=== PATIENT | female | born 1965 | race Caucasian/White ===

== ENCOUNTER → 2017-11-23 15:05 | Outpatient (REF) | payer OTHER, SELFPAY ==
[2017-11-23 19:22] LABS: Amphetamine/Metha Screen,Urine Negative ng/mL (<1000); Barbiturates Screen,Urine Negative ng/mL (<200); Benzodiazepines Screen,Urine Negative ng/mL (200); Cannabinoid Screen,Urine Negative ng/mL (<50); Cocaine Screen,Urine Negative ng/g (<300); Methadone Screen,Urine Negative ng/mL (<300); Opiate Screen,Urine Negative ng/mL (<300); Phencyclidine Screen,Urine Negative ng/mL (<25)
== END ==
LOC: LAB 15:05
PROVIDERS: Visit Provider Nurse Practitioner Family
DX: Z79.899 Other long term (current) drug therapy (principal)
CPT/HCPCS: 80305

== ENCOUNTER → 2017-11-26 16:16 | Outpatient (CLI) | payer OTHER, SELFPAY ==
--- NOTE | 2017-11-26 | MM_ITS ---
MM Dig screening mamm BI w/CAD CAD Screening ORDERING PHYSICIAN : Davon Villar MD PATIENT AGE: 52 years GENDER: Female Comparisons November 2016, October 2015, October 2014. 2013 INDICATION: . No hormones. No new complaints. Family history. Sister age 53 with breast cancer TECHNIQUE: Standard CC and MLO images were obtained. R2 CAD reviewed. FINDINGS: Mild/moderate density breast. No dominant mass nor suspicious calcifications. Stable minor asymmetry. CAD computer review highlights no new areas of concern RIGHT BREAST: stable with no new findings. LEFT BREAST:Asymmetric region density deep medial left breast is been seen on previous studies dating back to 2013. No significant change. ====IMPRESSION: .. . Stable mammogram with no significant new findings. Follow-up in one year recommended BI-RADS Category: 2 Benign Finding(s) RECOMMENDED FOLLOW-UP: 1YR - 1 YEAR FOLLOW-UP (A letter has been sent to the patient regarding results of the study.)
== END ==
PROVIDERS: PCP Emergency Medicine; Visit Provider Emergency Medicine
DX: Z12.31 Encounter for screening mammogram for malignant neoplasm of breast (principal)
CPT/HCPCS: 77067

== ENCOUNTER → 2018-03-15 10:10 | Outpatient (POV) | payer OTHER, SELFPAY | PROVIDERS: PCP Emergency Medicine; Visit Provider Specialist | DX: R20.0 Anesthesia of skin (principal); R20.2 Paresthesia of skin | CPT/HCPCS: 95886; 95909 ==

== ENCOUNTER → 2018-04-12 16:16 | Outpatient (REF) | payer OTHER, SELFPAY ==
[2018-04-12 18:37] LABS: Basophils # 0.1 K/mm3 (0-0.2); Basophils % 1.3 % (0.1-2.0); Eosinophils # 0.3 K/mm3 (0.0-0.4); Eosinophils % 3.5 % (0.1-12.0); Hematocrit 38.9 % (37.0-47.0); Lymphocytes # 2.2 K/mm3 (0.7-4.5); Lymphocytes % 30.6 K/mm3 (10-50); Mean Corpuscular HGB Conc 33.3 g/dL (31.8-35.4); Mean Corpuscular Hemoglobin 30.1 pg (27.0-31.2); Mean Corpuscular Volume 90.4 fl (81-99); Mean Platelet Volume 9.4 fl (7.4-10.4); Monocytes # 0.4 K/mm3 (0.1-1.0); Monocytes % 5.8 % (1.7-9.3); Neutrophils # 4.2 K/mm3 (1.8-7.8); Neutrophils % 58.8 % (37.0-80.0); Platelet Count 319 K/mm3 (142-424); Red Blood Count 4.31 M/mm3 (4.20-5.40); White Blood Count 7.2 K/mm3 (4.8-10.8)
[2018-04-12 20:10] LABS: Alanine Aminotransferase 25 U/L (12-78); Albumin Level 4.2 gm/dL (3.4-5.0); Albumin/Globulin Ratio 1.3 (1.1-1.8); Alkaline Phosphatase 99 U/L (46-116); Anion Gap 12.9 mEq/L (5-15); Aspartate Amino Transferase 16 U/L (15-37); Bilirubin,Total 0.4 mg/dL (0.2-1.0); Blood Urea Nitrogen 23 mg/dL (7-18); Calcium 9.1 mg/dL (8.5-10.1); Carbon Dioxide 30 mmol/L (21.0-32.0); Chloride 105 mmol/L (98-107); Chol/HDL Ratio 6.2 (1-3.5); Cholesterol 210 mg/dL (140-200); Creatinine,Serum 1.29 mg/dL (0.55-1.02); Estimated Glomerular Filt Rate 43 ml/min (>60); Free T4 (Free Thyroxine) 1.02 ng/dl (0.76-1.46); GFR (African American) 52 ML/MIN (>60); Globulin 3.2 gm/dl (1.3-3.2); Glucose 67 mg/dL (74-106); HDL Cholesterol 34 mg/dL (29-89); LDL Cholesterol 113 mg/dL (0-130); Potassium 3.9 mmoL/L (3.5-5.1); Sodium 144 mmol/L (136-145); Thyroid Stimulating Hormone 1.26 uIU/ml (0.358-3.740); Total Protein,Serum 7.4 gm/dL (6.4-8.2); Triglycerides 314 mg/dL (30-200); VLDL Cholesterol 63 mg/dL (0-40)
[2018-04-14 17:12] LABS: Vitamin D 25 Hydroxy 18.3 ng/mL (30.0-100.0)
== END ==
LOC: LAB 16:16
PROVIDERS: Visit Provider Nurse Practitioner Family
DX: R53.83 Other fatigue (principal)
CPT/HCPCS: 80053; 80061; 82652; 83036; 84439; 84443; 85025

== ENCOUNTER → 2018-05-13 14:56 | Outpatient (REF) | payer OTHER, SELFPAY ==
[2018-05-13 16:15] LABS: Alanine Aminotransferase 24 U/L (12-78); Albumin Level 4.3 gm/dL (3.4-5.0); Albumin/Globulin Ratio 1.2 (1.1-1.8); Alkaline Phosphatase 96 U/L (46-116); Anion Gap 13.7 mEq/L (5-15); Aspartate Amino Transferase 18 U/L (15-37); Bilirubin,Total 0.6 mg/dL (0.2-1.0); Blood Urea Nitrogen 25 mg/dL (7-18); Calcium 9.2 mg/dL (8.5-10.1); Carbon Dioxide 29 mmol/L (21.0-32.0); Chloride 103 mmol/L (98-107); Creatinine,Serum 1.46 mg/dL (0.55-1.02); Estimated Glomerular Filt Rate 37 ml/min (>60); GFR (African American) 45 ML/MIN (>60); Globulin 3.5 gm/dl (1.3-3.2); Glucose 91 mg/dL (74-106); Potassium 3.7 mmoL/L (3.5-5.1); Sodium 142 mmol/L (136-145); Total Protein,Serum 7.8 gm/dL (6.4-8.2)
== END ==
LOC: LAB 14:56
PROVIDERS: Visit Provider Nurse Practitioner Family
DX: R79.89 Other specified abnormal findings of blood chemistry (principal)
CPT/HCPCS: 80053

== ENCOUNTER → 2018-05-21 11:56 | Outpatient (REF) | payer OTHER, SELFPAY ==
[2018-05-21 17:31] LABS: Basophils # 0.1 K/mm3 (0-0.2); Basophils % 1.7 % (0.1-2.0); Eosinophils # 0.2 K/mm3 (0.0-0.4); Eosinophils % 2.5 % (0.1-12.0); Hematocrit 40.1 % (37.0-47.0); Hemoglobin 13.3 g/dL (12.2-16.2); Lymphocytes # 1.5 K/mm3 (0.7-4.5); Lymphocytes % 22.4 K/mm3 (10-50); Mean Corpuscular HGB Conc 33.2 g/dL (31.8-35.4); Mean Corpuscular Hemoglobin 29.9 pg (27.0-31.2); Mean Corpuscular Volume 89.9 fl (81-99); Monocytes # 0.3 K/mm3 (0.1-1.0); Monocytes % 4.8 % (1.7-9.3); Neutrophils # 4.7 K/mm3 (1.8-7.8); Neutrophils % 68.7 % (37.0-80.0); Platelet Count 325 K/mm3 (142-424); Red Blood Count 4.46 M/mm3 (4.20-5.40); Red Cell Distribution Width 13.4 % (11.5-17.5); White Blood Count 6.8 K/mm3 (4.8-10.8)
[2018-05-21 18:18] LABS: Erythrocyte Sedimentation Rate 33 mm/hr (0-30)
[2018-05-21 18:43] LABS: C-Reactive Protein < 0.2 mg/L (0.0-0.9)
== END ==
LOC: LAB 11:56
PROVIDERS: Visit Provider Emergency Medicine
DX: M25.50 Pain in unspecified joint (principal)
CPT/HCPCS: 85025; 85651; 86140

== ENCOUNTER → 2018-06-15 10:29 | Outpatient (CLI) | payer OTHER, SELFPAY ==
--- NOTE | 2018-06-15 10:30 | US_ITS ---
US kidney retroperitoneal comp HISTORY: ITS.REASON: abnormal labs ORDERING PHYSICIAN: Davon Villar MD PATIENT AGE: 53 years Comparison: None FINDINGS: RIGHT KIDNEY: No hydronephrosis 9 x 4 x 6 cm. There is a linear area of increased echogenicity in the renal cortex. May be related to cortical calcification.. Mild cortical scarring LEFT KIDNEY:10 x 4 x 6 cm. There is some mild renal cortical scarring on the left. No hydronephrosis OTHER FINDINGS: No other pertinent findings IMPRESSION: 1. No hydronephrosis. 2. Mild bilateral renal cortical scarring
== END ==
PROVIDERS: PCP Emergency Medicine; Visit Provider Emergency Medicine
DX: R89.9 Unspecified abnormal finding in specimens from other organs, systems and tissues (principal)
CPT/HCPCS: 76770

== ENCOUNTER → 2018-08-16 15:16 | Outpatient (POV) | payer OTHER, SELFPAY | PROVIDERS: Visit Provider Internal Medicine Nephrology | DX: Z00.00 Encounter for general adult medical examination without abnormal findings (principal) ==

== ENCOUNTER → 2020-09-04 17:03 | Outpatient (CLI) | payer MEDICAID, SELFPAY | PROVIDERS: PCP Emergency Medicine; Visit Provider Emergency Medicine | DX: Z03.818 Encounter for observation for suspected exposure to other biological agents ruled out (principal) | CPT/HCPCS: U0003; U0004 ==

== ENCOUNTER → 2020-09-18 14:47 | Outpatient (CLI) | payer MEDICAID, SELFPAY ==
--- NOTE | 2020-09-18 14:47 | MR_ITS ---
PROCEDURE: MR LUMBAR SPINE WO CON CLINICAL INDICATION: back pain RT SIDED SCIATICA X2-3MONTHS WORSENING IN 3 WKS. PRIOR X-RAY 06-14-15 COMPARISON: MR BRW/O MRI-BRAIN W/O from 05/11/2017 TECHNIQUE: Standard multiplanar multiecho sequences are performed without contrast. 3-D MIP and myelographic images are also rendered and reviewed FINDINGS: There is normal alignment. The spinal cord ends at the L1-L2 level. T11-T12: Minimal bulging disc. There is type 1 endplate changes anteriorly. A small T2 hyperintensity is present involving the T12 vertebral body with some stippled areas of decreased signal centrally at which may be due to a hemangioma. This measures approximately 7 mm. T12-L1: Unremarkable. L1-L2: Unremarkable. L2-L3: Mild facet and ligamentum hypertrophy. L3-L4: Mild facet ligamentum hypertrophy. Mild right lateral recess narrowing. L4-5: Mild facet ligamentum hypertrophy. L5-S1: Degenerative disc disease with mild bulging disc. There is mild facet and ligamentum hypertrophic change. IMPRESSION: Mild degenerative changes as described above. Please see above for detailed description at each level. Dictated by: Moses Lazar MD 09/20/2020 13:05 Moses Lazar MD in [place] 09/20/2020 13:05
== END ==
PROVIDERS: PCP Emergency Medicine; Visit Provider Emergency Medicine
DX: M54.9 Dorsalgia, unspecified (principal); M54.5 Low back pain
CPT/HCPCS: 72148; 76376

== ENCOUNTER → 2020-11-20 17:09 | Outpatient (CLI) | payer MEDICAID, SELFPAY ==
[2020-11-20 18:12] LABS: Basophils # 0.1 K/mm3 (0-0.2); Eosinophils # 0.3 K/mm3 (0.0-0.4); Eosinophils % 2.8 % (0.1-12.0); Hematocrit 41.8 % (37.0-47.0); Hemoglobin 13.4 g/dL (12.2-16.2); Lymphocytes # 2.2 K/mm3 (0.7-4.5); Lymphocytes % 23.9 % (10-50); Mean Corpuscular Volume 90.6 fl (81-99); Mean Platelet Volume 9.6 fl (7.4-10.4); Monocytes # 0.5 K/mm3 (0.1-1.0); Monocytes % 5.8 % (1.7-9.3); Neutrophils # 6.1 K/mm3 (1.8-7.8); Neutrophils % 66.5 % (37.0-80.0); Platelet Count 293 K/mm3 (142-424); Red Blood Count 4.61 M/mm3 (4.20-5.40); Red Cell Distribution Width 14.2 % (11.5-17.5); White Blood Count 9.2 K/mm3 (4.8-10.8)
[2020-11-20 18:16] LABS: Alanine Aminotransferase 19 U/L (12-78); Albumin Level 4.5 g/dl (3.5-5.0); Albumin/Globulin Ratio 1.5 (1.1-1.8); Alkaline Phosphatase 94 U/L (38-126); Anion Gap 15.1 mEq/L (5-15); Aspartate Amino Transferase 30 U/L (14-36); Bilirubin,Total 0.5 mg/dl (0.2-1.3); Blood Urea Nitrogen 18 mg/dl (7-17); Calcium 9.4 mg/dl (8.4-10.2); Carbon Dioxide 22 mmol/L (22.0-30.0); Chloride 108 mmol/L (98-107); Estimated Glomerular Filt Rate 52 ml/min (>60); GFR (African American) 62 ML/MIN (>60); Globulin 3.1 g/dL (1.3-3.2); Glucose 97 mg/dl (74-100); Potassium 4.1 mmoL/L (3.5-5.1); Sodium 141 mmol/L (136-145); Total Protein,Serum 7.6 g/dl (6.3-8.2)
[2020-11-20 18:30] LABS: Free T4 (Free Thyroxine) 0.94 ng/dl (0.78-2.19)
[2020-11-20 18:43] LABS: Thyroid Stimulating Hormone 1.77 uIU/mL (0.465-4.68)
[2020-11-20 19:26] LABS: Erythrocyte Sedimentation Rate 88 mm/hr (0-30)
== END ==
PROVIDERS: Visit Provider Emergency Medicine
DX: M51.16 Intervertebral disc disorders with radiculopathy, lumbar region (principal); I10 Essential (primary) hypertension; R51.9 Headache, unspecified; E66.9 Obesity, unspecified; Z68.31 Body mass index [BMI] 31.0-31.9, adult; Z79.899 Other long term (current) drug therapy
CPT/HCPCS: 80053; 84439; 84443; 85025; 85651

== ENCOUNTER → 2021-01-03 09:57 | Outpatient (POV) | payer MEDICAID, SELFPAY ==
[2021-01-03 10:23] VITALS: BP 103/65; PULSE 67; RESP 18; TEMP 36.8; O2SAT 98; BMI 31.6
--- NOTE | 2021-01-03 12:25 | HMH.PMCON ---
Assessment and Plan (1) Myofascial pain syndrome Status: Acute Category: Medical Code(s): M79.18 - Myalgia, other site (2) Degenerative joint disease (DJD) of lumbar spine Status: Acute Category: Medical Code(s): M47.816 - Spondylosis without myelopathy or radiculopathy, lumbar region - Assessment and plan all Dx Assessment and Plan for all problems:: We will plan on bilateral trapezius minus full trigger point injections. Given the fact that she has multiple full trigger points in this area I do believe it will benefit her. I will follow-up with her after her injection. She has been instructed to call the office if she has any issues prior to her next appointment Dr. Peters has reviewed this note and agrees with this plan of care. This note was dictated using voice recognition software and may contain errors or omissions HPI - Data of Consult Consult date: 01/03/21 Requesting Physician: Violeta Baca APRN Primary Care Provider: Davon Villar MD - Consult Narrative Reason for consult: Neck pain History of present illness: Ms. Abdi is a 55 year old female in today for consultation in regards to her pain. Patient states she has low back pain but her main complaint is her neck pain today. She is pain around the base of her neck spreading into her scapular area. Patient states that all activity increases pain while rest and heat decrease pain. Patient's tried and failed massage therapy, chiropractic therapy, physical therapy, medications, anti-inflammatories. Patient does have palpable trigger points in this area. We discussed trigger point injection she is agreeable. CC: Violeta Baca APRN [facility] History I have reviewed the patient's past medical history: Yes Medical History: Reports:: Anxiety, Arrhythmia, Depression, Gastroesophageal Reflux Disease(GERD), Hyperlipidemia, Hypertension, Migraine, Palpitations Denies:: Cancer, Diabetes Mellitus Type 1, Diabetes Mellitus Type 2, MRSA *Have you ever received a pneumonia vaccine?: Yes *Have you received a flu vaccine this season?: Yes Other Medical History: Reports: Arthritis, Fibromyalgia Laterality Cases: Bilateral: Carpal Tunnel Release, Other Other Surgeries: Yes: Cholecystectomy, Colonoscopy, Hysterectomy-Total, Tubal Ligation, Other Amputation: No Fractures: No - *Social History Smoking Status: Never smoker Alcohol Intake: never Substance Use Type: denies use *Occupational Status:: unemployed Housing: house Household Members: spouse *Travel in the last 8 weeks: None - Psychiatric History Pschychiatric History:: Reports:: Anxiety, Depression Family Hx:: Stroke, Hypertension, Diabetes, Hyperlipidemia Review of Systems - Review of Systems Physical Exam General: Alert and oriented x3, no acute distress, pleasant and cooperative, [on room air] Lungs: Resps E/U, Symmetrical chest expansion, Eyes: PERRL Musculoskeletal: Flexion and extension of lumbar cervical spine somewhat guarded secondary to pain, deep tendon reflexes normal, strength in upper and lower extremities [5/5], antalgic gait noted Neurological: 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 clear, 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, no gross sensory deficits Meds Home Medications Medication Instructions Recorded Confirmed Type cyclobenzaprine 10 mg tablet 10 mg PO HS tab 10/07/17 12/17/20 History cyanocobalamin (vitamin B-12) 1,000 mcg PO DAILY #90 cap 09/04/20 12/17/20 Rx 1,000 mcg capsule galcanezumab-gnlm 120 mg/mL 120 mg SQ QMONTH 09/04/20 12/17/20 History subcutaneous pen injector metoprolol succinate 100 mg 100 mg PO QDAY #90 tab 09/04/20 12/17/20 Rx tablet,extended release 24 hr ondansetron 8 mg disintegrating 8 mg PO Q12H 09/04/20 12/17/20 History tablet simvastatin 40 mg tablet 40 mg PO DAILY #90 tab 09/04/20 12/17/20 Rx topiramate 100 mg tablet See Rx Instructions .ROUTE 11/14/20 12/17/20 Rx .COMPLEX #60 tab ubrogepant 100 mg tablet 100 mg PO DAILY PRN #10 tab 11/21/20 12/17/20 Rx b
== END ==
PROVIDERS: PCP Emergency Medicine; Visit Provider Clinical Nurse Specialist Family Health
DX: M79.18 Myalgia, other site (principal); M47.816 Spondylosis without myelopathy or radiculopathy, lumbar region
CPT/HCPCS: 99202; G0463

== ENCOUNTER → 2021-01-09 13:33 | Outpatient (POV) | payer MEDICAID, SELFPAY | DX: Z00.00 Encounter for general adult medical examination without abnormal findings (principal) ==

== ENCOUNTER 2021-01-18 09:01 | Day surgery (SDC) | payer MEDICAID, SELFPAY ==
[2021-01-18 09:19] VITALS: BP 146/88; PULSE 67; RESP 18; TEMP 36.5; O2SAT 98; BMI 31.3
--- NOTE | 2021-01-18 09:37 | HMH.PMPROC ---
- Procedure Date: 01/18/21 Time: 09:37 Anesthesiologist:: Jose Peters MD Complications:: None Pre-procedure Diagnosis:: Neck pain myofascial in origin Post-procedure Diagnosis:: Same Indications for Procedure:: This patient is a pleasant 55-year-old white female who we are treating for neck pain which seems to be myofascial in origin over the upper trapezius muscles bilaterally. I believe she would benefit from bilateral trigger point injections to the upper trapezius muscles. We will do this today. Procedure Details:: Trigger point injections x8 Informed consent was obtained risk and benefits of the procedure were explained to the patient. Patient was taken the procedure room. The neck and shoulders were prepped using ChloraPrep. Trigger points were identified and marked over bilateral upper trapezius muscles. Total of 8 trigger points were injected bilaterally with bupivacaine 0.25% 3 mL and Depo-Medrol 10 mg. A total of 80 mg Depo-Medrol was used for total of 8 trigger points bilaterally. Patient tolerated the procedure well with no complications. Plan and Disposition:: Follow-up with her in 2 weeks. Will reevaluate symptoms at that time.
[2021-01-18 09:43] VITALS: BP 125/88; PULSE 78; RESP 18
[2021-01-18 09:44] VITALS: BP 128/88; PULSE 85; RESP 18; O2SAT 98
[2021-01-18 09:55] VITALS: BP 147/80; PULSE 56; RESP 18; O2SAT 98
== END 2021-01-18 09:55 | disposition home or self-care (01) ==
LOC: SC.PAINP 09:01
PROVIDERS: PCP Emergency Medicine; Visit Provider Anesthesiology
DX: M79.18 Myalgia, other site (principal); I10 Essential (primary) hypertension; E78.5 Hyperlipidemia, unspecified; K21.9 Gastro-esophageal reflux disease without esophagitis; Z88.0 Allergy status to penicillin
CPT/HCPCS: 20552; J1030

== ENCOUNTER → 2021-02-05 13:08 | Outpatient (CLI) | payer MEDICAID, SELFPAY | PROVIDERS: PCP Emergency Medicine; Visit Provider Specialist | DX: G47.33 Obstructive sleep apnea (adult) (pediatric) (principal) | CPT/HCPCS: 95806 ==

== ENCOUNTER → 2021-02-07 09:36 | Outpatient (POV) | payer MEDICAID, SELFPAY ==
[2021-02-07 09:43] VITALS: BP 130/77; PULSE 65; RESP 18; O2SAT 100; BMI 30.4
--- NOTE | 2021-02-07 10:16 | HMH.PAINSOAP ---
[facility] Pain Management SOAP Note Subjective:: Patient is a 56-year-old white female who presents today for follow-up. She is being treated for myofascial pain in her upper trapezius and cervical paraspinous muscles. Patient reports that she got 1 week of relief. She is now having pain that has returned in the left upper neck area. Patient has tried oral medications along with home stretching with little to no relief. She does rate her pain a 4 out of 10 today. She would like to proceed with repeat trigger point injections to the area. Patient and I did discuss trying a muscle relaxer to see if this gives her relief. She has tried Flexeril which causes her severe drowsiness and she is unable to take the medication. We discussed Skelaxin. We will try Skelaxin to see if this gives her relief. Review of Systems General: No recent weight changes, no fever, no sleep disturbances Respiratory: No cough, no shortness of air, no recurring pulmonary infections Cardiovascular/peripheral vascular: No chest pain, no palpitations, no edema, no shortness of breath Gastrointestinal: No new onset incontinence, normal bowel movements reported Genitourinary: No new onset incontinence Musculoskeletal: Neck pain into upper neck and bilateral shoulders Psychiatric: Normal mood/affect Neurological: [Denies weakness in extremities], [denies balance issues] Objective:: Physical exam General: Alert and oriented x3, no acute distress, pleasant and cooperative, [on room air] Lungs: Respirations even and unlabored, symmetrical chest expansion Eyes: PERRL Musculoskeletal: Flexion and extension of cervical spine somewhat guarded secondary to pain, deep tendon reflexes normal, strength in upper and lower extremities [5/5], normal gait noted Neurological: 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 She has had the injections and did get 90% relief for approximately 1 week. We will also order the patient Skelaxin 800 mg 1 tablet p.o. twice daily. We will see her back in the clinic after her injections to reevaluate her symptoms. Risk and benefits of the medication have been explained to the patient. Risk and benefits of the injections were also explained to the patient and she would like to proceed. Dr. Peters has reviewed this note and agrees with this plan of care. This note was dictated using voice recognition software and make contain errors or omissions. [facility] History I have reviewed the patient's past medical history: Yes Medical History: Reports:: Anxiety, Arrhythmia, Depression, Gastroesophageal Reflux Disease(GERD), Hyperlipidemia, Hypertension, Migraine, Palpitations Denies:: Cancer, Diabetes Mellitus Type 1, Diabetes Mellitus Type 2, MRSA, Seizures *Have you ever received a pneumonia vaccine?: No *Have you received a flu vaccine this season?: No Other Medical History: Reports: Arthritis, Fibromyalgia. Denies: Blood Transfusion Reaction Laterality Cases: Bilateral: Carpal Tunnel Release, Other Other Surgeries: Yes: Cholecystectomy, Colonoscopy, Hysterectomy-Total, Tubal Ligation, Other Amputation: No Fractures: No - *Social History Smoking Status: Never smoker Alcohol Intake: never Substance Use Type: denies use *Occupational Status:: unemployed Housing: house Household Members: spouse *Travel in the last 8 weeks: None - Psychiatric History Pschychiatric History:: Reports:: Anxiety, Depression Family Hx:: Stroke, Hypertension, Diabetes, Hyperlipidemia
== END ==
PROVIDERS: PCP Emergency Medicine; Visit Provider Clinical Nurse Specialist Family Health
DX: M45.2 Ankylosing spondylitis of cervical region (principal); M79.18 Myalgia, other site
CPT/HCPCS: 99212; G0463

== ENCOUNTER 2021-02-15 12:55 | Day surgery (SDC) | payer MEDICAID, SELFPAY ==
[2021-02-15 13:12] VITALS: BP 122/84; PULSE 100; RESP 18; TEMP 36.4; O2SAT 98; BMI 30.4
[2021-02-15 13:38] VITALS: BP 123/74; PULSE 89; RESP 18; O2SAT 100
[2021-02-15 13:39] VITALS: BP 123/74; PULSE 96; RESP 18; O2SAT 99
--- NOTE | 2021-02-15 13:42 | HMH.PMPROC ---
- Procedure Date: 02/15/21 Time: 13:42 Anesthesiologist:: Jose Peters MD Complications:: None Pre-procedure Diagnosis:: Neck pain myofascial in origin involving the cervical paraspinous muscles and upper trapezius muscles Post-procedure Diagnosis:: Same Indications for Procedure:: Patient is a pleasant 56-year-old white female who we are treating for neck pain which is myofascial in origin involving the cervical paraspinous muscles and upper trapezius muscles. She has had trigger point injections to these areas with good relief of her symptoms. Pain is now returned. This was done several months ago. We will do repeat bilateral cervical paraspinous muscle and upper trapezius muscle trigger point injections again today. Procedure Details:: Trigger point injections x8 to bilateral cervical paraspinous muscles and upper trapezius muscles Informed consent was obtained and the risk and benefits of the procedure were explained to the patient. Patient was taken to the procedure room. Neck and shoulders were prepped using ChloraPrep. Trigger points were palpated and marked. Each of these trigger points were injected with bupivacaine 0.25% 3 mL and Depo-Medrol 10 mg. A total of 8 trigger points encompassing bilateral cervical paraspinous muscles and upper trapezius muscles were injected using 80 mg Depo-Medrol. Patient tolerated procedure well with no complications. Plan and Disposition:: We will follow-up with this patient in 2 weeks. Will reevaluate symptoms at that time. She may need repeat trigger point injections at that time.
[2021-02-15 13:55] VITALS: BP 129/76; PULSE 86; RESP 18; O2SAT 98
== END 2021-02-15 13:55 | disposition home or self-care (01) ==
LOC: SC.PAINP 12:55
PROVIDERS: PCP Emergency Medicine; Visit Provider Anesthesiology
DX: M79.18 Myalgia, other site (principal); G43.909 Migraine, unspecified, not intractable, without status migrainosus; E78.5 Hyperlipidemia, unspecified; R00.2 Palpitations; I10 Essential (primary) hypertension; K21.9 Gastro-esophageal reflux disease without esophagitis; M19.90 Unspecified osteoarthritis, unspecified site; F41.9 Anxiety disorder, unspecified; F32.9 Major depressive disorder, single episode, unspecified; I49.9 Cardiac arrhythmia, unspecified; Z90.49 Acquired absence of other specified parts of digestive tract; Z90.710 Acquired absence of both cervix and uterus
CPT/HCPCS: 20553; J1030

== ENCOUNTER 2021-03-11 12:00 | Observation (INO) | payer MEDICAID, SELFPAY ==
[2021-03-11] VITALS (11 sets, daily range): BP systolic 115–137; BP diastolic 70–85; PULSE 50–65; RESP 16–18; TEMP 36.5–36.7; O2SAT 95–98; BMI 31.6
--- NOTE | 2021-03-11 | IR_ITS ---
APPROVED REPORT Patient Location: Inpatient Crew Truck Driver: KYM Medina RT (R) PROCEDURES Left heart catheterization Left ventriculogram Selective coronary angiogram INDICATION Unstable angina Informed consent was obtained prior to the procedure. COMPLICATIONS None Estimated Blood Loss: Less than 10 mls TECHNIQUE One percent lidocaine used to anesthetize the right anterior aspect of the wrist. The right radial artery was accessed via the Seldinger technique. A 6 Turkmen sheath was placed in the right radial artery. 2.5 mg of verapamil, 800 mcg of nitroglycerin, 1mg Lidocaine and 5000 U Heparin were given through the arterial sheath. The Poppa catheter was also used to perform left heart catheterization, left ventriculogram and selective coronary angiogram. At the end of the procedure the sheath was removed good hemostasis was achieved using Traclet band, patient was transferred to the postop holding area in stable condition. ANGIOGRAPHIC RESULTS The left main artery Normal The left anterior descending artery Normal The circumflex artery Normal The right coronary artery Dominant normal The LÓPEZ ventriculogram reveals Normal 65% The left ventricular end-diastolic pressure 10 mmHg IMPRESSION Normal coronary arteries Normal ejection fraction Normal left ventricular NaSal pressure PLAN 1. Evaluation of noncardiac symptoms 2. Consider CTA of the pulmonary arteries Electronically signed by : Edinson Camara, 03/11/2021 15:07:19
--- NOTE | 2021-03-11 12:24 | CA_ITS ---
APPROVED REPORT EXAM: Comprehensive 2D, Doppler, and color-flow Echocardiogram [place] Professor: Miguelina Diaz RVT Ht: 5 ft 7 in Wt: 202lbs BSA: 2.03 BP: 115/78 mmHg Indications: ANGINA,HLD,HTN,NORMAL CATH 2D Dimensions LVOT 1.92 cm (M/F) 1.5-2.5 LA Volume 28.00 mL LA Volume Index 13.79 mL/m2 (M/F) 16-34 M-Mode Dimensions RVDd 2.54 cm (0.9-2.6) LA Diam 2.87 cm (1.9-4.0) LVDd 4.51 cm (3.5-5.7) Ao Diam 3.25 cm (2.0-3.7) LVDs 2.61 cm (3.5-5.7) IVSd 0.86 cm (0.6-1.1) PWd 0.82 cm (0.6-1.1) EF (Teich) 73.30% FS 42.10% EDV (Teich) 92.90 mL TAPSE 2.73 (<1.7) ESV (Teich) 24.80 mL LV Diastology E Decel Time 223.00 (160-240 msec) E/A Ratio 0.7 MED E' 8.40 (< 7 cm/sec) E'/MED E' Ratio 7.35 (>14) LAT E' 10.10 (<10 cm/sec) E/LAT E' Ratio 6.11 (>14) Aortic Valve AO Peak GR. 6.70 mmHg Mitral Valve MV E Max Popeye. 62.00 (40-130 cm/s) MV A Velocity 87.00 (40-130 cm/s) E/A Ratio 0.71 MV Decel. Time 223.00 (160-240 ms) MV PHT 65.00 ms Pulmonary Valve PV Peak Velocity 78.00 (50-150 cm/s) Tricuspid Valve TR P. Velocity 215.00 cm/s RAP Estimate 10.00 mmHg RVSP 28.50 mmHg Left Ventricle Left atrium is mildly enlarged, left ventricle is normal size mild concentric left ventricular hypertrophy, visually estimated ejection fraction 55% with no regional wall motion abnormality, grade 1 diastolic dysfunction seen without tissue Doppler evidence of raise left atrial pressure. Right Ventricle Right atrium and right ventricle are normal size and contractility. Aortic Valve Aortic valve is thickened and calcified without Doppler evidence of aortic stenosis or aortic insufficiency. Mitral Valve Mitral valve grossly normal, there is mild mitral regurgitation. Tricuspid Valve Tricuspid valve is grossly normal, there is mild tricuspid regurgitation, tricuspid regurgitation jet velocity is inadequate for calculation of the right ventricular systolic pressure. Pulmonic Valve Pulmonic valve is poorly visualized. Great Vessels Aortic root is normal size. Pericardium No significant pericardial effusion noted. Conclusion 1. Mildly enlarged left atrium, normal left ventricular size, mild concentric left ventricular hypertrophy, visually estimated ejection fraction 55% with no regional wall motion abnormality, diastolic parameters are consistent with grade 1 diastolic dysfunction without tissue Doppler evidence of raise left atrial pressure. 2. Mild mitral and tricuspid regurgitation. 3. No significant pericardial effusion noted. Electronically signed by : Codey Boss, 03/11/2021 21:59:20
--- NOTE | 2021-03-11 12:36 | HMH.CNCARD ---
History of Present Illness Consult date: 03/11/21 Requesting physician: Davon Villar Consult reason: chest pain Chief complaint: chest pain History of present illness: This is a 86-[id number]-[id number]-year-old white female who was admitted to the hospital from her primary care provider's office for accelerated angina. The patient states that she has been having chest pain intermittently for the last several days to weeks. She states that this was just a mild sharp sensation and then this significantly worsened last week. She states that she has been having a crushing pressure, heavy, sharp sensation in the substernal aspect of her chest. She states that this is radiating up the left side of her neck and into her left jaw, her back and around the right side of her chest. She states that this is a severe, crushing, 10 out of 10 pain. She states that it lasts for about an hour. Nothing worsens the pain. Nothing helps to improve the pain not even taking aspirin. She states that this is associated with shortness of breath which is profound and nausea. The patient states that she has a significant family history of ischemic heart disease. She states both of her parents and all of her siblings have heart disease. She denies any tobacco use. She does have hyperlipidemia. [facility] History I have reviewed the patient's past medical history: Yes Medical History: Reports:: Anxiety, Arrhythmia, Depression, Gastroesophageal Reflux Disease(GERD), Hyperlipidemia, Hypertension, Migraine, Palpitations Denies:: Cancer, Diabetes Mellitus Type 1, Diabetes Mellitus Type 2, MRSA, Seizures *Have you ever received a pneumonia vaccine?: No *Have you received a flu vaccine this season?: No Other Medical History: Reports: Arthritis, Fibromyalgia. Denies: Blood Transfusion Reaction Laterality Cases: Left: Arthroscopy Knee, Bilateral: Carpal Tunnel Release, Other Other Surgeries: Yes: Cholecystectomy, Colonoscopy, Hysterectomy-Total, Tubal Ligation, Other Amputation: No Fractures: No - *Social History Smoking Status: Never smoker Alcohol Intake: never Substance Use Type: denies use *Occupational Status:: unemployed Housing: house Household Members: spouse *Travel in the last 8 weeks: None - Psychiatric History Pschychiatric History:: Reports:: Anxiety, Depression Family Hx:: Stroke, Hypertension, Diabetes, Hyperlipidemia Meds Home Medications Medication Instructions Recorded Confirmed Type cyclobenzaprine 10 mg tablet 10 mg PO HS tab 10/07/17 03/11/21 History ondansetron 8 mg disintegrating 8 mg PO Q12H 09/04/20 03/11/21 History tablet Cyanocobalamin (Vitamin B-12) See Rx Instructions .ROUTE .COMPLEX 01/18/21 03/11/21 History [B-12] Diclofenac Sodium [Diclofenac 100 mg PO BID 01/18/21 03/11/21 History Sodium ER] Duloxetine HCl [Cymbalta] See Rx Instructions .ROUTE .COMPLEX 01/18/21 03/11/21 History Gabapentin 800 mg PO BID 01/18/21 03/11/21 History Metoprolol Succinate [Metoprolol See Rx Instructions .ROUTE .COMPLEX 01/18/21 03/11/21 History Succinate 100mg Tablet*] Oxybutynin Chloride [Oxybutynin See Rx Instructions .ROUTE .COMPLEX 01/18/21 03/11/21 History Chloride ER] Simvastatin 40 mg PO DAILY 01/18/21 03/11/21 History buPROPion HCL [Wellbutrin SR 75mg See Rx Instructions .ROUTE .COMPLEX 01/18/21 03/11/21 History Tablet] Emgality Pen 120 mg/mL 120 mg SQ QMONTH #1 ml NS 01/28/21 03/11/21 Rx subcutaneous pen injector Ubrelvy 100 mg tablet 100 mg PO ONCE PRN #10 tab NS 01/28/21 03/11/21 Rx Metaxalone [Skelaxin 800mg Tablet] 800 mg PO BID 30 Days #60 tab 02/07/21 03/11/21 Rx topiramate 100 mg tablet See Rx Instructions .ROUTE 02/26/21 03/11/21 Rx .COMPLEX #60 tablet pantoprazole 40 mg tablet,delayed See Rx Instructions .ROUTE 03/01/21 03/11/21 Rx release .COMPLEX #90 tablet Allergies Allergy/AdvReac Type Severity Reaction Status Date / Time Penicillins Allergy Intermediate I-HIVES Verified 03/11/21 11:03 Exam Vital
--- NOTE | 2021-03-11 12:37 | ECG_ITS ---
APPROVED REPORT Exam: Resting ECG HR:58 bpm ECG Measurements Heart Rate 58 AXES AL 158 P 28 QRSd 86 QRS -8 QT 418 T 32 QTc 410 Conclusion Sinus bradycardia Moderate voltage criteria for LVH, may be normal variant Borderline ECG Electronically signed by : Stuart Carpio, 03/11/2021 17:31:36
[2021-03-11 13:03] LABS: Basophils # 0.1 K/mm3 (0-0.2); Basophils % 0.8 % (0.1-2.0); Eosinophils # 0.3 K/mm3 (0.0-0.4); Hematocrit 38.4 % (37.0-47.0); Lymphocytes # 1.9 K/mm3 (0.7-4.5); Lymphocytes % 19.2 % (10-50); Mean Corpuscular HGB Conc 33.7 g/dL (31.8-35.4); Mean Corpuscular Hemoglobin 30.1 pg (27.0-31.2); Mean Corpuscular Volume 89.1 fl (81-99); Mean Platelet Volume 9.3 fl (7.4-10.4); Monocytes # 0.8 K/mm3 (0.1-1.0); Monocytes % 7.5 % (1.7-9.3); Neutrophils # 6.9 K/mm3 (1.8-7.8); Neutrophils % 69.4 % (37.0-80.0); Platelet Count 304 K/mm3 (142-424); Red Blood Count 4.31 M/mm3 (4.20-5.40); Red Cell Distribution Width 14.1 % (11.5-17.5); White Blood Count 9.9 K/mm3 (4.8-10.8)
[2021-03-11 13:15] LABS: Chloride 106 mmol/L (98-107); Potassium 3.8 mmoL/L (3.5-5.1); Sodium 143 mmol/L (136-145)
[2021-03-11 13:17] LABS: Blood Urea Nitrogen 19 mg/dl (7-17); Creatinine Clearance Estimated 83 mL/min (50-200); Estimated Glomerular Filt Rate 51 ml/min (>60); GFR (African American) 62 ML/MIN (>60)
[2021-03-11 13:18] LABS: Alanine Aminotransferase 19 U/L (12-78); Albumin Level 4.7 g/dl (3.5-5.0); Albumin/Globulin Ratio 1.5 (1.1-1.8); Alkaline Phosphatase 111 U/L (38-126); Aspartate Amino Transferase 30 U/L (14-36); Bilirubin,Total 0.5 mg/dl (0.2-1.3); Calcium 9.3 mg/dl (8.4-10.2); Carbon Dioxide 26 mmol/L (22.0-30.0); Chol/HDL Ratio 3.6 (1-3.5); Cholesterol 170 mg/dl (140-200); Globulin 3.2 g/dL (1.3-3.2); Glucose 82 mg/dl (74-100); HDL Cholesterol 47 mg/dl (40-60); Magnesium 2.1 mg/dl (1.6-2.3); Total Protein,Serum 7.9 g/dl (6.3-8.2); Triglycerides 204 mg/dl (30-150); VLDL Cholesterol 41 mg/dL (0-40)
[2021-03-11 13:29] LABS: Direct LDL Cholesterol 81.75 mg/dL (100-129)
[2021-03-11 13:36] LABS: Anion Gap 6.2 mEq/L (5-15)
--- NOTE | 2021-03-11 13:37 | HMH.PHAINT ---
COMPLETED MEDICATION RECONCILIATION ON PATIENT USING EXTERNAL PHARMACY FILL HISTORY AND LIST FROM DR. KENDALL'S OFFICE.
--- NOTE | 2021-03-11 14:01 | HMH.PHAVTE ---
[facility] Pharmacy VTE Monitoring - Patient Demographics Admission date: 03/11/21 Report Date: 03/11/21 Time: 14:01 Allergies/Adverse Reactions: Patient Allergies Penicillins Allergy (Intermediate, Verified 03/11/21 11:03) I-HIVES Height: 1.7 m Weight: 91.626 kg Patient Problems: Current Active Problems Accelerating angina (Acute) Hyperlipidemia (Chronic) Family history of ischemic heart disease (Chronic) Hypertension (Chronic) - VTE Risk Labs: VTE Related Lab Results Hgb 13.0 g/dL (12.2-16.2) 03/11/21 12:50 Hct 38.4 % (37.0-47.0) 03/11/21 12:50 Plt Count 304 K/mm3 (142-424) 03/11/21 12:50 BUN 19 mg/dl (7-17) H 03/11/21 12:50 Creatinine 1.10 mg/dl (0.52-1.04) H 03/11/21 12:50 Estimated Creat Clear 83 mL/min (50-200) 03/11/21 12:50 VTE Score: 1 - Prophylaxis VTE Prophylaxis Ordered?: Yes Types of VTE Prophylaxis: TEDS Knee High Location of Applied Device: Bilateral Lower Extremeties
--- NOTE | 2021-03-11 16:01 | CT_ITS ---
PROCEDURE INFORMATION: Exam: CTA Chest With Contrast Exam date and time: 03/11/2021 4:01 PM Age: 56 years old Clinical indication: Shortness of breath; Patient HX: Chest pain, SOA TECHNIQUE: Imaging protocol: Computed tomographic angiography of the chest with contrast. 3D rendering (Not supervised by radiologist): MIP and/or 3D reconstructed images were created by the technologist. Radiation optimization: All CT scans at this facility use at least one of these dose optimization techniques: automated exposure control; mA and/or kV adjustment per patient size (includes targeted exams where dose is matched to clinical indication); or iterative reconstruction. Contrast material: ISOVUE 370; Contrast volume: 70 ml; Contrast route: INTRAVENOUS (IV); COMPARISON: [employer]/O MRI-C-SPINE W/O 05/11/2017 8:09 AM FINDINGS: Pulmonary arteries: The pulmonary arteries are normal in caliber. No pulmonary emboli to the proximal subsegmental level. Aorta: No thoracic aortic aneurysm. No evidence of aortic dissection. Lungs: No focal consolidation or pulmonary nodules. There are calcified granulomas in the right upper lobe. Linear opacities in the dependent lungs likely represent dependent atelectasis. Pleural spaces: Unremarkable. No pneumothorax. No pleural effusion. Heart: No cardiomegaly. No pericardial effusion. Lymph nodes: No mediastinal or hilar lymphadenopathy. Spleen: The spleen is mildly enlarged measuring 12.3 cm and demonstrates multiple calcifications, likely calcified granulomas. Bones/joints: No acute fracture. There are multilevel degenerative changes of the spine. Soft tissues: Unremarkable. IMPRESSION: No evidence of pulmonary embolism.
--- NOTE | 2021-03-11 16:29 | HMH.ITSTN ---
TALKED TO KINZA VERA RN, PATIENT GETTING ECHO AND NEW LINE STARTED AT APPROX [id number]
[2021-03-11 16:50] LABS: Troponin I < 0.01 ng/ml (0.00-0.034)
--- NOTE | 2021-03-11 17:34 | PC.NURSE ---
PT IS OFF THE FLOOR WITH RADIOLOGY AT THIS TIME.
[2021-03-11 19:06] LABS: Troponin I < 0.01 ng/ml (0.00-0.034)
--- NOTE | 2021-03-11 19:35 | HMH.HPDC ---
General - General Admission date:: 03/11/21 Discharge date: 03/11/21 *Admission Date: 03/11/21 *Chief complaint: chest pain *History of present illness: 34-vluz-sxr-year-old white female who was admitted to the hospital from her primary care provider's office for accelerated angina. The patient states that she has been having chest pain intermittently for the last several days to weeks. She states that this was just a mild sharp sensation and then this significantly worsened last week. She states that she has been having a crushing pressure, heavy, sharp sensation in the substernal aspect of her chest. She states that this is radiating up the left side of her neck and into her left jaw, her back and around the right side of her chest. She states that this is a severe, crushing, 10 out of 10 pain. She states that it lasts for about an hour. Nothing worsens the pain. Nothing helps to improve the pain not even taking aspirin. She states that this is associated with shortness of breath which is profound and nausea. The patient states that she has a significant family history of ischemic heart disease. She states both of her parents and all of her siblings have heart disease. She denies any tobacco use. She does have hyperlipidemia. per cardiology [facility] History I have reviewed the patient's past medical history: Yes Medical History: Reports:: Anxiety, Arrhythmia, Depression, Gastroesophageal Reflux Disease(GERD), Hyperlipidemia, Hypertension, Migraine, Palpitations Denies:: Cancer, Diabetes Mellitus Type 1, Diabetes Mellitus Type 2, MRSA, Seizures *Have you ever received a pneumonia vaccine?: No *Have you received a flu vaccine this season?: No Other Medical History: Reports: Arthritis, Fibromyalgia. Denies: Blood Transfusion Reaction Laterality Cases: Left: Arthroscopy Knee, Bilateral: Carpal Tunnel Release, Other Other Surgeries: Yes: Cholecystectomy, Colonoscopy, Hysterectomy-Total, Tubal Ligation, Other Amputation: No Fractures: No - *Social History Last grade of school completed: Some college Smoking Status: Never smoker Alcohol Intake: never Substance Use Type: denies use *Occupational Status:: retired Housing: house Household Members: spouse *Travel in the last 8 weeks: None - Psychiatric History Pschychiatric History:: Reports:: Anxiety, Depression Family Hx:: Stroke, Hypertension, Diabetes, Hyperlipidemia Review of Systems - Review of Systems Review of systems:: pertinent systems reviewed and negative unless documented below - Constitutional Denies body ache(s), Denies weakness - Eyes Denies sensitivity to light - ENT Denies ear pain - *Cardiovascular Reports chest pain, Reports chest pain at rest, Reports chest pain with activity, Reports shortness of breath - *Respiratory Reports shortness of breath with activity, Denies change in phlegm color - *Gastrointestinal Denies abdominal pain - *Genitourinary Denies urinary urgency - *Musculoskeletal Denies joint pain - Integumentary/Breasts Denies rash - *Neurologic Denies confusion - Psychiatric Denies mood swings - Endocrine Denies increased hunger - Hematologic/Lymphatic Denies easy bruising Exam Vital signs and Labs for Last 24 Hours: Temp Pulse Resp BP Pulse Ox 97.9 F 60 18 130/74 96 03/11/21 18:18 03/11/21 19:30 03/11/21 19:30 03/11/21 19:30 03/11/21 19:30 Laboratory Results - last 24 hr 03/11/21 12:50: WBC 9.9, RBC 4.31, Hgb 13.0, Hct 38.4, MCV 89.1, MCH 30.1, MCHC 33.7, RDW 14.1, Plt Count 304, MPV 9.3, Neut % (Auto) 69.4, Lymph % (Auto) 19.2, [place] % (Auto) 7.5, Eos % (Auto) 3.0, Baso % (Auto) 0.8, Neut # (Auto) 6.9, Lymph # (Auto) 1.9, [place] # (Auto) 0.8, Eos # (Auto) 0.3, Baso # (Auto) 0.1 03/11/21 12:50: Sodium 143, Potassium 3.8, Chloride 106, Carbon Dioxide 26, Anion Gap 6.2, BUN 19 H, Creatinine 1.10 H, Estimated Creat Clear 83, Estimated GFR 51 L, Est GFR ( Amer) 62, Glucose 82, Calcium 9.3,
--- NOTE | 2021-03-11 20:17 | PC.NURSE ---
PT WAS D/C AT 2016
== END 2021-03-11 20:11 | disposition home or self-care (01) ==
PROVIDERS: Internal Medicine; Admitting Provider Emergency Medicine; PCP Emergency Medicine; Visit Provider Emergency Medicine
DX: I25.118 Atherosclerotic heart disease of native coronary artery with other forms of angina pectoris (principal); Z82.49 Family history of ischemic heart disease and other diseases of the circulatory system; I10 Essential (primary) hypertension; G43.909 Migraine, unspecified, not intractable, without status migrainosus; K21.9 Gastro-esophageal reflux disease without esophagitis
CPT/HCPCS: 36415; 71275; 80053; 80061; 83735; 84484; 85025; 93005; 93306; 93458; 99152; C1725; C1769; G0378; J1644; Q9967

== ENCOUNTER → 2021-04-01 09:43 | Outpatient (POV) | payer MEDICAID, SELFPAY ==
[2021-04-01 09:49] VITALS: BP 161/86; PULSE 63; RESP 18; O2SAT 100; BMI 31.3
--- NOTE | 2021-04-01 10:17 | HMH.PAINSOAP ---
[facility] Pain Management SOAP Note Subjective:: Patient is a 56-year-old white female who presents today for follow-up after trigger point injections for myofascial pain. She was last seen on 02/15/2021. She says that she got excellent relief with injections, however, her pain has returned. Patient rates her pain a 6 out of 10 today. She is having pain in her neck with radiation into bilateral shoulders and into her left deltoid muscle. She says it is tender to touch. She says her left neck and shoulder are worse with pain. She is also having mid back pain between her shoulder blades. She says this is a dull ache and musculoskeletal in nature, she feels. She is now complaining of low back pain with radicular pain into her right hip as well. She says that she has had SI pain in the past, however, she is now having pain bending forward and with extension and turning at her waist. Standing is severe as well. Lying down does give her relief. She says that she has not had the low back pain for some time. She has not had any imaging of her lumbar spine. She has tried physical therapy for more than 6 weeks and continues with home stretching and has tried anti-inflammatories. We discussed ordering compounding cream for the area as well as a muscle relaxer. She is unable to tolerate Flexeril or ties Harleen Guillermo due to severe drowsiness. We will order her a different muscle relaxer to see if this helps. We also discussed compounding cream to apply topically to the area. Review of Systems General: No recent weight changes, no fever, no sleep disturbances Respiratory: No cough, no shortness of air, no recurring pulmonary infections Cardiovascular/peripheral vascular: No chest pain, no palpitations, no edema, no shortness of breath Gastrointestinal: No new onset incontinence, normal bowel movements reported Genitourinary: No new onset incontinence Musculoskeletal: Bilateral neck pain, low back pain with radiation into right hip, worse with bending forward and turning/extension at waist Psychiatric: Normal mood/affect Neurological: [Denies weakness in extremities], [denies balance issues] Objective:: Physical exam General: Alert and oriented x3, no acute distress, pleasant and cooperative, [on room air] Lungs: Respirations even and unlabored, symmetrical chest expansion Eyes: PERRL Musculoskeletal: Flexion and extension of [] cervical, thoracic, lumbar spine somewhat guarded secondary to pain, deep tendon reflexes normal, strength in upper and lower extremities [5/5], normal gait noted Neurological: Speech clear, corporate controller equal, no gross sensory deficit Assessment:: Myofascial pain cervical paraspinous muscles and upper trapezius muscles, low back pain, right hip pain Plan:: We will schedule patient for trigger point injections to her cervical paraspinous and upper trapezius muscles. She is also having pain mid back area between her shoulder blades. We will perform injections to this area as well. We will also order the patient compounding cream to apply topically to her neck and low back area. We will order the patient Robaxin 500 mg 1 tablet p.o. daily as needed for muscle spasms. We will get imaging of her lumbar spine. She seems to be having some facet pain. Her pain is worse when she is bending forward and with extension and turning at her waist. She does have facet loading today. We will follow-up with her at her next visit, discuss her MRI of her lumbar spine and evaluate if her medications are working for her. Patient has been instructed to contact the clinic with any concerns before the next appointment. Risks and benefits of the procedure have been explained to the patient. Patient would like to proceed with the procedure. Possible side effects of corticosteroids have been discussed with the patient. Dr. Peters has reviewed this note and agrees with this plan of care. This note was dictated using voice recognition software and ma
== END ==
PROVIDERS: PCP Emergency Medicine; Visit Provider Clinical Nurse Specialist Family Health
DX: M79.18 Myalgia, other site (principal); M54.6 Pain in thoracic spine; M25.551 Pain in right hip
CPT/HCPCS: 99212; G0463

== ENCOUNTER → 2021-04-08 12:54 | Outpatient (CLI) | payer MEDICAID, SELFPAY ==
--- NOTE | 2021-04-08 12:58 | MR_ITS ---
PROCEDURE: MR LUMBAR SPINE WO CON CLINICAL INDICATION: BACK PAIN COMPARISON: MR MR LUMBAR SPINE WO CON from 09/18/2020 TECHNIQUE: Standard multiplanar multiecho sequences are performed without contrast. 3-D MIP and myelographic images are also rendered and reviewed FINDINGS: Normal alignment. Mild degenerative disc disease T11-T12 with minimal bulging disc. The spinal cord ends at the L1 level. There is a small T2 hyperintensity in the T12 vertebral body at 6 mm and may be due to small hemangioma. L1-L2: Unremarkable. L2-L3: Mild facet and ligamentum hypertrophic change L3-L4: Mild facet ligamentum hypertrophic change with minimal right lateral recess narrowing unchanged L4-5: Mild facet ligamentum hypertrophy unchanged. L5-S1: Minimal bulging disc with facet and ligamentum hypertrophy and degenerative disc disease No extruded herniated disc. No significant change from the previous exam. IMPRESSION: Mild lumbar spondylosis overall not significantly changed. Please see above for detailed description at each level Dictated by: Moses Lazar MD 04/08/2021 18:48 Moses Lazar MD in [place] 04/08/2021 18:48
== END ==
PROVIDERS: PCP Emergency Medicine; Visit Provider Clinical Nurse Specialist Family Health
DX: M54.5 Low back pain (principal)
CPT/HCPCS: 72148; 76376

== ENCOUNTER 2021-04-26 10:13 | Day surgery (SDC) | payer MEDICAID, SELFPAY ==
[2021-04-26 10:42] VITALS: BP 125/60; PULSE 64; TEMP 36.8; O2SAT 98; BMI 31.0
[2021-04-26 10:56] VITALS: BP 130/71; PULSE 60; RESP 18; O2SAT 100
[2021-04-26 10:58] VITALS: BP 115/83; PULSE 62; RESP 18; O2SAT 100
--- NOTE | 2021-04-26 11:10 | HMH.PMPROC ---
- Procedure Date: 04/26/21 Time: 11:10 Anesthesiologist:: Jose Peters MD Complications:: None Pre-procedure Diagnosis:: Neck pain myofascial in origin over bilateral upper trapezius muscles trigger points identified Post-procedure Diagnosis:: Same Indications for Procedure:: This patient is a pleasant 56-year-old white female who we are treating for myofascial pain over the neck and bilateral upper trapezius muscles. Trigger points are identified. We will plan on trigger point injections to bilateral upper trapezius muscles today to help with her neck pain and myofascial pain. Procedure Details:: Trigger point injections x8 to bilateral upper trapezius muscles Informed consent was obtained risk and benefits of the procedure were explained to the patient. Patient was taken the procedure room. The neck and bilateral upper trapezius area were prepped using ChloraPrep. Trigger points were palpated and marked. Each of these trigger points were injected with bupivacaine 0.25% 3 mL and Depo-Medrol 10 mg. A total of 8 trigger points were injected, 4 on each side, using a total of 80 mg of Medrol. Patient tolerated the procedure well with no complications. Plan and Disposition:: We will follow-up with this patient in 2 weeks. Will reevaluate symptoms at that time. She also has had a MRI of the lumbar spine which shows facet and ligamentum hypertrophic change at L3-L4, L4-5 and L5-S1. Most of her pain is on the right side. We will seek approval for right sided medial branch block/facet joint injections of L3-L4 L4-5 and L5-S1.
[2021-04-26 11:17] VITALS: BP 134/79; PULSE 18; PULSE 74; O2SAT 98
== END 2021-04-26 11:18 | disposition home or self-care (01) ==
LOC: SC.PAINP 10:14
PROVIDERS: PCP Emergency Medicine; Visit Provider Anesthesiology
DX: M79.18 Myalgia, other site (principal); G43.909 Migraine, unspecified, not intractable, without status migrainosus; E78.5 Hyperlipidemia, unspecified; R00.2 Palpitations; I10 Essential (primary) hypertension; K21.9 Gastro-esophageal reflux disease without esophagitis; F41.9 Anxiety disorder, unspecified; F32.9 Major depressive disorder, single episode, unspecified; M19.90 Unspecified osteoarthritis, unspecified site; Z82.49 Family history of ischemic heart disease and other diseases of the circulatory system; Z88.0 Allergy status to penicillin
CPT/HCPCS: 20552; J1030

== ENCOUNTER 2021-05-17 13:41 | Day surgery (SDC) | payer MEDICAID, SELFPAY ==
[2021-05-17 13:44] VITALS: BP 131/72; PULSE 71; RESP 18; TEMP 36.6; O2SAT 99; BMI 30.8
[2021-05-17 14:05] VITALS: BP 116/61; PULSE 70; RESP 18; O2SAT 99
[2021-05-17 14:09] VITALS: BP 137/85; PULSE 71; RESP 18; O2SAT 97
[2021-05-17 14:25] VITALS: BP 114/65; PULSE 64; RESP 20; O2SAT 100
--- NOTE | 2021-05-17 14:33 | HMH.PMPROC ---
- Procedure Date: 05/17/21 Time: 14:33 Anesthesiologist:: Jose Peters MD Complications:: None Pre-procedure Diagnosis:: Degenerative disc disease of lumbar spine with lumbar spondylosis and lumbar facet arthropathy Post-procedure Diagnosis:: Same Indications for Procedure:: Patient is a pleasant 56-year-old white female who we are treating for low back pain with lumbar spondylosis and lumbar facet arthropathy. Most of her pain is on the right side. She did well with trigger point injections previously to her neck and shoulders at her last visit however she did get a headache on the left side after these injections. Today we are treating her low back pain with facet arthropathy on the right side. She has increased pain with extension and twisting. She is tender over the facet joints of L3-L4, 4 5 and L5-S1. Procedure Details:: Lumbar medial branch block Informed consent was obtained and the risks and benefits of the procedure was explained to the patient. The back was prepped using ChloraPrep. The skin and subcutaneous tissues were anesthetized using lidocaine. I placed 22-gauge spinal needles into the facet joint/medial branches of L3-L4, L4-L5 and L5-S1 on the right side. Needle placement was confirmed with dye. After this we injected 3 mL bupivacaine 0.25% and Depo-Medrol 13 mg into each facet joint/medial branch of L3-L4, L5 and L5-S1 on the right side. We used a total of 40 mg Depo-Medrol for all 3 levels on the right side. The patient tolerated the procedure well with no complications. Plan and Disposition:: We will follow-up with this patient in 2 weeks. Will reevaluate symptoms at that time. If she does get relief of her pain symptoms then we may proceed to RF ablation of the same levels of L3-L4, 4 5 and L5-S1 on the right side.
== END 2021-05-17 14:25 | disposition home or self-care (01) ==
LOC: SC.PAINP 13:41
PROVIDERS: PCP Emergency Medicine; Visit Provider Anesthesiology
DX: M51.36 Other intervertebral disc degeneration, lumbar region (principal); M47.816 Spondylosis without myelopathy or radiculopathy, lumbar region; M54.06 Panniculitis affecting regions of neck and back, lumbar region; G43.909 Migraine, unspecified, not intractable, without status migrainosus; E78.5 Hyperlipidemia, unspecified; R00.2 Palpitations; I10 Essential (primary) hypertension; K21.9 Gastro-esophageal reflux disease without esophagitis; M19.90 Unspecified osteoarthritis, unspecified site; F41.9 Anxiety disorder, unspecified; F32.9 Major depressive disorder, single episode, unspecified; Z88.0 Allergy status to penicillin
CPT/HCPCS: 64493; 64494; 64495; J1040; Q9966

== ENCOUNTER → 2021-05-24 10:37 | Outpatient (CLI) | payer MEDICAID, SELFPAY | PROVIDERS: Visit Provider Internal Medicine Gastroenterology | DX: Z01.812 Encounter for preprocedural laboratory examination (principal); Z11.52 Encounter for screening for COVID-19; Z13.810 Encounter for screening for upper gastrointestinal disorder | CPT/HCPCS: U0003 ==

== ENCOUNTER → 2021-05-31 11:08 | Outpatient (CLI) | payer MEDICAID, SELFPAY ==
--- NOTE | 2021-05-31 11:09 | MM_ITS ---
PROCEDURE: MM DIG SCREENING MAMM BI W/CAD Digital Breast Tomosynthesis Included No known the CLINICAL INDICATION: screening COMPARISON: MG [facility] DIG MAMM-SCREEN HEBERT W/CAD from 11/13/2016 [facility] MM Dig screening mamm BI w/CAD from 11/26/2017 MG MM screening mammo BI from 12/13/2018 MG MM tomosynthesis screening BI from 05/17/2020 TECHNIQUE: Standard CC and MLO images and 3D Tomosynthesis was obtained. R2 CAD reviewed. FINDINGS: Report delayed waiting on old films for comparison which are made available as 06/28/2021. There are scattered areas of fibroglandular density No suspicious appearing mass, malignant-appearing microcalcification, architectural distortion, or skin thickening. No significant change IMPRESSION: Negative, no evidence of malignancy BI-RAD Category: 1 Negative FOLLOW-UP: 1 YR 1 Year Follow-up (A letter has been sent to the patient regarding results of the study.) Dictated by: Moses Lazar MD 06/28/2021 09:16 Moses Lazar MD in [place] 06/28/2021 09:16
== END ==
PROVIDERS: PCP Emergency Medicine; Visit Provider Emergency Medicine
DX: Z12.31 Encounter for screening mammogram for malignant neoplasm of breast (principal)
CPT/HCPCS: 77063; 77067

== ENCOUNTER → 2021-06-06 14:16 | Outpatient (POV) | payer MEDICAID, SELFPAY ==
[2021-06-06 14:27] VITALS: BP 121/83; PULSE 67; RESP 18; O2SAT 96; BMI 31.3
--- NOTE | 2021-06-06 14:56 | HMH.PAINSOAP ---
[facility] Pain Management SOAP Note Subjective:: Patient is a pleasant 56-year-old white female who presents today for follow-up after a medial branch block/facet joint injection of L3-L4 L4-L5 L5-S1 bilaterally. She has been treated for degenerative disc disease lumbar spine with lumbar spondylosis and lumbar facet arthropathy. Patient reports that she got approximately 70 or 80% relief with the injection for 2 to 3 days. The patient's pain did return for 1 to 2 days. Following the patient's return of pain, she says she is now getting significant relief once again. She says that her pain is a 5 out of 10 which is baseline for the patient on most days. She says that the twinges of pain with movement have subsided. Overall, she feels she is doing very well. She does not want to repeat the medial branch block until the pain returns. She is continue with home stretching. She did undergo physical therapy for greater than 6 weeks and continues with oral medications. Objective:: Review of Systems General: No recent weight changes, no fever, no sleep disturbances Respiratory: No cough, no shortness of air, no recurring pulmonary infections Cardiovascular/peripheral vascular: No chest pain, no palpitations, no edema, no shortness of breath Gastrointestinal: No new onset incontinence, normal bowel movements reported Genitourinary: No new onset incontinence Musculoskeletal: Low back pain intermittent with turning and twisting and with bending forward Psychiatric: [Normal mood/affect] Neurological: [Denies weakness in extremities], [denies balance issues] Assessment:: Physical exam General: Alert and oriented x3, no acute distress, pleasant and cooperative, [on room air] Lungs: Respirations even and unlabored, symmetrical chest expansion Eyes: PERRL Musculoskeletal: Flexion and extension of lumbar [spine] somewhat guarded secondary to pain, strength in upper and lower extremities [5/5], [antalgic gait noted], positive Kemps test Neurological: 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 She would like to postpone her second diagnostic injection until the pain returns. We will schedule the patient for a follow-up visit in 1 month. If the patient's pain returns before then we will get her back in the clinic to schedule a medial branch block at L3-L4 L4-L5 L5-S1 bilaterally. We did discuss RFA as a treatment if she continues to get significant relief with her second medial branch block. She is in agreement. Patient has been instructed to contact the clinic with any concerns before the next appointment. Dr. Peters has reviewed this note and agrees with this plan of care. This note was dictated using voice recognition software and make contain errors or omissions. [facility] History Medical History: Reports:: Anxiety, Arrhythmia, Depression, Gastroesophageal Reflux Disease(GERD), Hyperlipidemia, Hypertension, Migraine, Palpitations Denies:: Cancer, Diabetes Mellitus Type 1, Diabetes Mellitus Type 2, Internal Pacemaker, MRSA, Seizures *Have you ever received a pneumonia vaccine?: No *Have you received a flu vaccine this season?: No Other Medical History: Reports: Arthritis, Fibromyalgia. Denies: Blood Transfusion Reaction Laterality Cases: Right: Arthroscopy Knee, Carpal Tunnel Release, Bilateral: Other Other Surgeries: Yes: Cardiac Catheterization, Cholecystectomy, Colonoscopy, Hysterectomy-Total, Tubal Ligation, Other. No: Pacemaker Amputation: No Fractures: No - *Social History Smoking Status: Never smoker Alcohol Intake: never Substance Use Type: denies use *Occupational Status:: unemployed Housing: house Household Members: spouse *Travel in the last 8 weeks: None - Psychiatric History Pschychiatric History:: Reports:: Anxiety, Depression Family Hx:: Anemia, Cancer, Coronary Artery Di
== END ==
PROVIDERS: PCP Emergency Medicine; Visit Provider Clinical Nurse Specialist Family Health
DX: M51.36 Other intervertebral disc degeneration, lumbar region (principal); M47.816 Spondylosis without myelopathy or radiculopathy, lumbar region; M54.06 Panniculitis affecting regions of neck and back, lumbar region
CPT/HCPCS: 99212; G0463

== ENCOUNTER → 2021-06-13 13:32 | Outpatient (POV) | payer MEDICAID, SELFPAY ==
[2021-06-13 13:39] VITALS: BP 125/80; PULSE 76; RESP 18; O2SAT 99; BMI 31.0
--- NOTE | 2021-06-13 14:24 | HMH.PAINSOAP ---
[facility] Pain Management SOAP Note Subjective:: Patient is a 56-year-old white female who presents today for follow-up. The patient did undergo a medial branch block/facet joint injection on the right side at L3-L4 L4-L5 L5-S1. She did get up to 70% relief for about a week and a half. The patient's pain did return. She is now having pain on the left side and right side. She rates her pain a 5 out of 10. The pain is worse when she is laying flat or with bending forward or extension at waist. She says that the pain does improve when she stands up straight, however. She is tender over bilateral facet joints on the L4-L5 L5-S1 area. She has tried failed conservative therapies of physical therapy for more than 6 weeks along with home stretching and anti-inflammatories. Review of Systems General: No recent weight changes, no fever, no sleep disturbances Respiratory: No cough, no shortness of air, no recurring pulmonary infections Cardiovascular/peripheral vascular: No chest pain, no palpitations, no edema, no shortness of breath Gastrointestinal: No new onset incontinence, normal bowel movements reported Genitourinary: No new onset incontinence Musculoskeletal: Low back pain worse with lying flat, with bending forward and extension at waist Psychiatric: [Normal mood/affect] Neurological: [Denies weakness in extremities], [denies balance issues] Objective:: Physical exam General: Alert and oriented x3, no acute distress, pleasant and cooperative, [on room air] Lungs: Respirations even and unlabored, symmetrical chest expansion Eyes: PERRL Musculoskeletal: Flexion and extension of lumbar [spine] somewhat guarded secondary to pain, strength in upper and lower extremities [5/5], [antalgic gait noted], positive Kemps test Neurological: Speech clear, [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 Patient did undergo medial branch blocks at her last visit to the L3-L4 L4-L5 L5-S1 area on the right side only. The patient's pain has now progressed to the left side. She is not on any anticoagulation therapy. We will see her back in the clinic after her injections for reevaluation of symptoms. Patient has been instructed to contact clinic if she has any concerns before her next appointment. Possible side effects of corticosteroids have been discussed with the patient. Risks and benefits of the procedure have been explained to the patient. Patient would like to proceed with the procedure. Patient has been instructed to contact the clinic with any concerns before the next appointment. Dr. Peters has reviewed this note and agrees with this plan of care. This note was dictated using voice recognition software and make contain errors or omissions. [facility] History I have reviewed the patient's past medical history: Yes Medical History: Reports:: Anxiety, Arrhythmia, Depression, Gastroesophageal Reflux Disease(GERD), Hyperlipidemia, Hypertension, Migraine, Palpitations Denies:: Cancer, Diabetes Mellitus Type 1, Diabetes Mellitus Type 2, Internal Pacemaker, MRSA, Seizures *Have you ever received a pneumonia vaccine?: No *Have you received a flu vaccine this season?: No Other Medical History: Reports: Arthritis, Fibromyalgia. Denies: Blood Transfusion Reaction Laterality Cases: Right: Arthroscopy Knee, Carpal Tunnel Release, Bilateral: Other Other Surgeries: Yes: Cardiac Catheterization, Cholecystectomy, Colonoscopy, Hysterectomy-Total, Tubal Ligation, Other. No: Pacemaker Amputation: No Fractures: No - *Social History Smoking Status: Never smoker Alcohol Intake: never Substance Use Type: denies use *Occupational Status:: unemployed Housing: house Household Members: spouse *Travel in the last 8 weeks: None - Psychiatric History P
== END ==
PROVIDERS: Visit Provider Clinical Nurse Specialist Family Health
DX: M51.36 Other intervertebral disc degeneration, lumbar region (principal); M47.816 Spondylosis without myelopathy or radiculopathy, lumbar region
CPT/HCPCS: 99212; G0463

== ENCOUNTER → 2021-06-13 13:57 | Outpatient (CLI) | payer MEDICAID, SELFPAY ==
[2021-06-13 14:57] LABS: C-Reactive Protein 5.5 mg/L (0-4)
[2021-06-13 15:17] LABS: Erythrocyte Sedimentation Rate 52 mm/hr (0-30)
[2021-09-11 04:13] LABS: Antinuclear Antibodies (ANA) NEGATIVE
== END ==
PROVIDERS: Visit Provider Specialist
DX: G44.1 Vascular headache, not elsewhere classified (principal)
CPT/HCPCS: 36415; 85651; 86038; 86140

== ENCOUNTER → 2021-06-15 08:05 | Outpatient (CLI) | payer MEDICAID, SELFPAY ==
--- NOTE | 2021-06-15 08:05 | MR_ITS ---
PROCEDURE INFORMATION: Exam: MR Cervical Spine Without Contrast Exam date and time: 06/15/2021 8:05 AM Age: 56 years old Clinical indication: Patient HX: Migraine headaches, neck pain wit bilateral arm tingling and numbness TECHNIQUE: Imaging protocol: Multiplanar magnetic resonance images of the cervical spine without contrast. 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 No acute fracture seen. Spinal cord: Normal signal. No cord compression. The intervertebral disc heights are preserved. C2-C3: [id number]-[id number] left facet arthropathy. No stenoses. C3-C4: Mild left facet arthropathy. No stenoses. C4-C5: Shallow broad-based right paracentral disc protrusion as well as slight ligamentum flavum buckling. The central spinal canal remains patent. Facet arthropathy is [id number]. The neural foramina remain patent. C5-C6: 2 mm central disc protrusion with high-intensity zone as well as slight ligamentum flavum buckling. The central spinal canal remains patent. Uncovertebral and facet arthropathy causing mild bilateral neural foraminal stenoses. C6-C7: No stenoses. Incidental perineural cyst in the right foramen. C7-T1: No significant disc disease. No significant spinal stenosis. Soft tissues: Unremarkable. Vertebral arteries: Expected flow voids in the vertebral arteries. IMPRESSION: Mild bilateral neural foraminal stenoses at C5-C6, new since prior. Otherwise no significant interval change.
--- NOTE | 2021-06-15 08:05 | MR_ITS ---
PROCEDURE INFORMATION: Exam: MR Head Without Contrast Exam date and time: 06/15/2021 8:05 AM Age: 56 years old Clinical indication: Aura effect not specified; Patient HX: Migraine headaches, neck pain wit bilateral arm tingling and numbness; Additional info: Headache TECHNIQUE: Imaging protocol: MR of the head without contrast. COMPARISON: BRW/O MRI-BRAIN W/O 05/11/2017 8:09 AM FINDINGS: Brain: No acute infarct or active demyelination identified on the diffusion-weighted imaging. The T2 weighted imaging demonstrates a progressive burden of hyperintense lesions in the deep and subcortical white matter, in particular bilateral garcia radiata lesions. Subtle patchy increased signal intensity in the posterior richa on the T2 weighted imaging, as before. There are new, T2 hyperintense lesions in the posterior lentiform nuclei. Cerebral ventricles: Stable. No ventriculomegaly. Bones/joints: Unremarkable. Paranasal sinuses: Normal as visualized. No acute sinusitis. Mastoid air cells: Normal as visualized. No mastoid effusion. Orbital cavity: Unremarkable. Soft tissues: Unremarkable. IMPRESSION: 1. Progressive white matter disease since the prior exam of 2016. This could reflect chronic small vessel ischemic change, perhaps migrainous angiopathy. Primary demyelinating disease is another consideration. 2. No evidence of active demyelination.
== END ==
PROVIDERS: PCP Emergency Medicine; Visit Provider Specialist
DX: G44.1 Vascular headache, not elsewhere classified (principal); M54.2 Cervicalgia
CPT/HCPCS: 70551; 72141; 76376

== ENCOUNTER → 2021-06-20 10:06 | Outpatient (CLI) | payer MEDICAID, SELFPAY | PROVIDERS: Visit Provider Specialist | DX: Z51.81 Encounter for therapeutic drug level monitoring (principal) | CPT/HCPCS: 36415 ==

== ENCOUNTER 2021-07-05 09:15 | Day surgery (SDC) | payer MEDICAID, SELFPAY ==
[2021-07-05 09:21] VITALS: BP 149/68; PULSE 57; RESP 18; TEMP 36.3; O2SAT 100; BMI 31.0
--- NOTE | 2021-07-05 09:44 | HMH.PMPROC ---
- Procedure Date: 07/05/21 Time: 09:44 Anesthesiologist:: Jose Peters MD Complications:: None Pre-procedure Diagnosis:: Degenerative disc disease of lumbar spine with lumbar spondylosis and lumbar facet arthropathy Post-procedure Diagnosis:: Same Indications for Procedure:: Patient is a pleasant 56-year-old white female who we are treating for low back pain with lumbar spondylosis and lumbar facet arthropathy. She has previously undergone medial branch blocks with good relief of her pain symptoms. Pain has now returned in the area of L4-5 and L5-S1. We will plan on bilateral lumbar medial branch block/facet joint injections of L4-5 and L5-S1 today. Procedure Details:: Lumbar medial branch block Informed consent was obtained and the risks and benefits of the procedure was explained to the patient. The back was prepped using ChloraPrep. The skin and subcutaneous tissues were anesthetized using lidocaine. I placed 22-gauge spinal needles into the facet joint/medial branches of L4-L5 and L5-S1 bilaterally. Needle placement was confirmed with dye. After this we injected 3 mL bupivacaine 0.25% and Depo-Medrol 20 mg into each facet joint/medial branch of L4-L5 and L5-S1 bilaterally. We used a total of 80 mg Depo-Medrol for both levels bilaterally. The patient tolerated the procedure well with no complications. Plan and Disposition:: We will follow-up with her in 2 weeks. Will reevaluate symptoms at that time.
[2021-07-05 09:45] VITALS: BP 115/56; PULSE 54; RESP 20; O2SAT 100
[2021-07-05 09:46] VITALS: BP 117/70; PULSE 55; RESP 20; O2SAT 100
[2021-07-05 10:00] VITALS: BP 133/62; PULSE 54; RESP 20; O2SAT 99
== END 2021-07-05 10:00 | disposition home or self-care (01) ==
LOC: SC.PAINP 09:16
PROVIDERS: PCP Emergency Medicine; Visit Provider Anesthesiology
DX: M51.36 Other intervertebral disc degeneration, lumbar region (principal); M47.816 Spondylosis without myelopathy or radiculopathy, lumbar region; M54.06 Panniculitis affecting regions of neck and back, lumbar region; G43.909 Migraine, unspecified, not intractable, without status migrainosus; E78.5 Hyperlipidemia, unspecified; I10 Essential (primary) hypertension; K21.9 Gastro-esophageal reflux disease without esophagitis; M19.90 Unspecified osteoarthritis, unspecified site; F41.9 Anxiety disorder, unspecified; F32.9 Major depressive disorder, single episode, unspecified; Z88.0 Allergy status to penicillin; Z79.899 Other long term (current) drug therapy
CPT/HCPCS: 64493; 64494; J1040; Q9966

== ENCOUNTER → 2021-07-22 10:36 | Outpatient (POV) | payer MEDICAID, SELFPAY ==
[2021-07-22 10:55] VITALS: BP 127/82; PULSE 76; RESP 18; O2SAT 98; BMI 30.2
--- NOTE | 2021-07-22 11:31 | HMH.PAINSOAP ---
[facility] Pain Management SOAP Note Subjective:: Patient is a 56-year-old white female who presents today for follow-up. The patient recently underwent a lumbar medial branch block/facet joint injections at L4-L5 L5-S1 bilaterally. This was the patient's second round of injections. She got 3 days of relief at about 80% relief. With the initial injection she got weeks of relief at 80 to 90%. The patient's pain has returned. Pain is primarily in her low back area. The pain does worsen with bending and turning and twisting at waist. She says that the pain also worsens with prolonged standing. After standing more than 10 to 15 minutes, the patient has worse pain to her low back pain. The pain is nonradicular. She does rate her pain a 5 out of 10 today. We have ordered the patient compounding cream in the past which does take the edge off of her pain. The patient is now having mid back pain as well. She has not had any recent imaging of her mid back. She reports to be feeling a grinding sensation in her mid back with movement. The patient has tried physical therapy for greater than 6 weeks in the past along with home stretching and has taken anti-inflammatories with minimal relief. She also uses ice and heat therapies. Review of Systems General: No recent weight changes, no fever, no sleep disturbances Respiratory: No cough, no shortness of air, no recurring pulmonary infections Cardiovascular/peripheral vascular: No chest pain, no palpitations, no edema, no shortness of breath Gastrointestinal: No new onset incontinence, normal bowel movements reported Genitourinary: No new onset incontinence Musculoskeletal: Low back pain worse with standing, twisting turning at waist, mid back pain?grinding sensation with movement Psychiatric: [Normal mood/affect] Neurological: [Denies weakness in extremities], [denies balance issues] Objective:: Physical exam General: Alert and oriented x3, no acute distress, pleasant and cooperative Lungs: Respirations even and unlabored, symmetrical chest expansion Eyes: PERRL Musculoskeletal: Flexion and extension of thoracic and lumbar [spine] somewhat guarded secondary to pain, [antalgic gait noted], positive Kemps test Neurological: Speech clear, no gross sensory deficit Assessment:: Degenerative disc disease lumbar spine with lumbar spondylosis and lumbar facet arthropathy Plan:: Patient is a 56-year-old white female who is following up after a second round of medial branch block/facet joint injections at L4-L5 L5-S1 bilaterally. She got 80% relief for about 3 days. The patient's pain has returned. With the initial injection she got weeks of relief at about 80 to 90%. She has tried conservative therapies of physical therapy for more than 6 weeks and home stretching. She does continue with home stretching as well as ice and heat therapies and anti-inflammatories. She does take gabapentin 800 mg 1 tablet p.o. twice daily prescribed by her primary care provider. She would like to proceed with an RFA to these areas, lumbar medial branch block/facet joint injection at L4-L5 L5-S1 bilaterally. She does have mid back pain that is a grinding sensation worse with movement. She has not had any recent imaging. We will schedule the patient for an MRI of her thoracic spine. Patient is not on any anticoagulation therapy and is not diabetic. Risks and benefits of the procedure have been explained to the patient. Patient would like to proceed with the procedure. Patient has been instructed to contact the clinic with any concerns before the next appointment. Dr. Peters has reviewed this note and agrees with this plan of care. This note was dictated using voice recognition software and make contain errors or omissions. [facility] History I have reviewed the patient's past medical history: Yes Medical History: Reports:: Anxiety, Arrhythmia, Depression, Gastroesophageal Reflux Disease(GERD), Hyperlipidemia, Hypert
== END ==
PROVIDERS: Visit Provider Clinical Nurse Specialist Family Health
DX: M51.36 Other intervertebral disc degeneration, lumbar region (principal); M47.816 Spondylosis without myelopathy or radiculopathy, lumbar region; M54.06 Panniculitis affecting regions of neck and back, lumbar region
CPT/HCPCS: 99212; G0463

== ENCOUNTER → 2021-07-30 13:08 | Outpatient (CLI) | payer MEDICAID, SELFPAY ==
--- NOTE | 2021-07-30 13:12 | MR_ITS ---
PROCEDURE: MR THORACIC SPINE WO CON CLINICAL INDICATION: BACK PAIN COMPARISON: No exams were available for comparison TECHNIQUE: Routine multiplanar multi echo sequences are performed without gadolinium enhancement. FINDINGS: Normal alignment. No acute fracture or dislocation. T6-T7: Mild degenerative disc disease. T7-T8: Degenerative disc disease with minimal central disc protrusion abutting the cord anteriorly without displacement T8-T9: Degenerative disc disease. T9-T10: Degenerative disc disease with small anterior osteophytes. T10-T11: Mild degenerative disc disease. T11-T12: Mild degenerative disc disease. There is a T2 hyperintensity involving the posterior aspect of the T12 vertebral body with central small foci of decreased T2 signal suggesting a hemangioma. IMPRESSION: Thoracic spondylosis with multilevel degenerative disc disease. Minimal central disc protrusion T7-T8. Possible hemangioma the T12 vertebral body Dictated by: Moses aLzar MD 07/31/2021 17:13 Moses Lazar MD in [place] 07/31/2021 17:13
== END ==
PROVIDERS: PCP Emergency Medicine; Visit Provider Clinical Nurse Specialist Family Health
DX: M54.6 Pain in thoracic spine (principal)
CPT/HCPCS: 72146

== ENCOUNTER → 2021-08-13 08:26 | Outpatient (POV) | payer MEDICAID, SELFPAY ==
[2021-08-13 08:42] VITALS: BP 127/78; PULSE 73; RESP 20; TEMP 36.6; O2SAT 100; BMI 30.8
--- NOTE | 2021-08-13 08:59 | HMH.PAINSOAP ---
[facility] Pain Management SOAP Note Subjective:: Patient is a 56-year-old white female who presents today for follow-up. The patient is scheduled to undergo RFA lumbar spine at L4-L5 L5-S1 area on Thursday. She recently underwent an MRI of her thoracic spine. Office staff schedule the patient to return to the clinic to review her MRI today. Patient does have mid back pain that is nonradicular in nature. She says the pain is constant and dull in nature. She also has pain from bending forward to her mid back area. She rates her pain a 6 out of 10 today. She has had medial branch blocks x2 to the lumbar spine and is scheduled to undergo an RFA. She would like to review her MRI today before proceeding with the RFA lumbar spine. Review of Systems General: No recent weight changes, no fever, no sleep disturbances Respiratory: No cough, no shortness of air, no recurring pulmonary infections Cardiovascular/peripheral vascular: No chest pain, no palpitations, no edema, no shortness of breath Gastrointestinal: No new onset incontinence, normal bowel movements reported Genitourinary: No new onset incontinence Musculoskeletal: Mid and low back pain made worse with movement?worse with bending forward and turning twisting at waist Psychiatric: [Normal mood/affect] Neurological: [Denies weakness in extremities], [denies balance issues] Objective:: Physical exam General: Alert and oriented x3, no acute distress, pleasant and cooperative Lungs: Respirations even and unlabored, symmetrical chest expansion Eyes: PERRL Musculoskeletal: Flexion and extension of thoracic and lumbar [spine] somewhat guarded secondary to pain, [antalgic gait noted], positive Kemps test Neurological: Speech clear, no gross sensory deficit Assessment:: Degenerative disc disease thoracic and lumbar spine with thoracic and lumbar spondylosis and facet arthropathy, protruding disc thoracic spine Plan:: The patient and I did review her MRI today. She does have a protruding disc at T7-T8 per the MRI report as well as spondylosis. We discussed options for injective therapy. She will discuss these with Dr. Peters at the next visit. She will also plan for the RFA at the L4-L5 L5-S1 bilaterally procedure at next visit. She is following up at this time patient is a pleasant []-year-old [] [] who presents today for intrathecal pain pump []. Patient is being treated for [] The patient is not on any anticoagulation therapy. She is not diabetic. Patient has been instructed to contact the clinic with any concerns before the next appointment. Dr. Peters has reviewed this note and agrees with this plan of care. This note was dictated using voice recognition software and make contain errors or omissions. [facility] History I have reviewed the patient's past medical history: Yes Medical History: Reports:: Anxiety, Arrhythmia, Depression, Gastroesophageal Reflux Disease(GERD), Hyperlipidemia, Hypertension, Migraine, Palpitations Denies:: Cancer, Diabetes Mellitus Type 1, Diabetes Mellitus Type 2, Internal Pacemaker, MRSA, Seizures *Have you ever received a pneumonia vaccine?: No *Have you received a flu vaccine this season?: Yes Other Medical History: Reports: Arthritis, Fibromyalgia. Denies: Blood Transfusion Reaction Laterality Cases: Right: Arthroscopy Knee, Carpal Tunnel Release, Bilateral: Other Other Surgeries: Yes: Cardiac Catheterization, Cholecystectomy, Colonoscopy, Hysterectomy-Total, Tubal Ligation, Other. No: Pacemaker Amputation: No Fractures: No - *Social History Smoking Status: Never smoker Alcohol Intake: never Substance Use Type: denies use *Occupational Status:: other Housing: house Household Members: spouse *Travel in the last 8 weeks: None - Psychiatric History Pschychiatric History:: Reports:: Anxiety, Depression Family Hx:: Anemia, Cancer, Coronary Artery Disease, Diabetes, Hyperlipidemia, Hypertension, Stroke, Thyroid Disorder
== END ==
PROVIDERS: Visit Provider Clinical Nurse Specialist Family Health
DX: M51.34 Other intervertebral disc degeneration, thoracic region (principal); M51.36 Other intervertebral disc degeneration, lumbar region; M47.816 Spondylosis without myelopathy or radiculopathy, lumbar region
CPT/HCPCS: 99212; G0463

== ENCOUNTER 2021-08-14 09:00 | Outpatient (RCR) | payer MEDICAID, SELFPAY ==
--- NOTE | 2021-06-12 11:42 | HMH.PTOPEV ---
PT Outpatient Evaluation Rehab PT Outpatient Evaluation Start: 06/12/21 10:07 Freq: Status: Active Protocol: Document 06/12/21 11:13 PDESEROUX (Rec: 06/12/21 11:42 [email or web address] [id number]) Electronically Signed By Moshe Manuel, PT 06/12/21 11:13 Outpatient Therapy Subjective History Subjective History Pt. is a 56 year old female who presents to Outpatient P.T. Clinic w/ c/o chronic and constant B/L(L>R) cervical P!, headaches, and migraines of insidious onset 6 months ago. Pt. 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 Pt. reports her symptoms will initiate in the upper trap as a dull ache, then shoot a sharp and stabbing P! into head and around posterior to her orbital bone. Pt. reports symptoms worsen w/ driving, sewing, dishwashing, and cooking. Pt. reports having some symptom relief w/ previous Physical Therapy for migraines and MONDRAGON's. Pt. also reports having some symptom relief after the trigger point injections. Pt. reports she is scheduled for an MRI this coming Thursday(06/15/21). Pt. RTMD in a few weeks. Current medications include Topamax, Emgality, Diclofenac, Flexiril, Gabapentin, Protonix, Simvastatin, Metoprolol, and Welbutrin. PMH includes RUE shldr. RC tear, Fibromyalgia, LLE TKA, LLE knee revision, RUE hand Carpal Tunnel surgery, and Mixed Connective Tissue Disease. Chief Complaint Pain,Spasms,Stiff,Other Symptom Type Ache,Sharp,Dull,Stabbing, Burning,Shooting Symptoms Relieved By Rest/Positioning,Ice, Prescription Meds Symptoms Aggravated
== END 2021-09-16 15:02 | disposition home or self-care (01) ==
LOC: PT.CARL 09:00
PROVIDERS: PCP Emergency Medicine; Visit Provider Specialist
DX: G43.719 Chronic migraine without aura, intractable, without status migrainosus (principal); G44.1 Vascular headache, not elsewhere classified; M54.2 Cervicalgia
CPT/HCPCS: 97010; 97014; 97035; 97110; 97140; 97163; 97164; G0283

== ENCOUNTER 2021-08-16 11:14 | Day surgery (SDC) | payer MEDICAID, SELFPAY ==
[2021-08-16 11:24] VITALS: BP 131/86; BP 162/75; PULSE 68; PULSE 94; RESP 20; TEMP 36.2; O2SAT 100; O2SAT 98; BMI 30.8
[2021-08-16 11:50] VITALS: BP 137/57; PULSE 72; RESP 18; O2SAT 100
[2021-08-16 11:51] VITALS: BP 133/79; PULSE 72; RESP 18; O2SAT 100
--- NOTE | 2021-08-16 11:59 | P.PCN_ITS ---
- Procedure Date: 08/16/21 Time: 11:59 Anesthesiologist:: Jose Peters MD Complications:: None Pre-procedure Diagnosis:: Degenerative disc disease of lumbar spine with lumbar spondylosis and lumbar facet arthropathy Post-procedure Diagnosis:: Same Indications for Procedure:: This patient is a pleasant 56-year-old white female who we are treating for low back pain with lumbar spondylosis and lumbar facet arthropathy. She is done well with 2 rounds of medial branch blocks. She was 89% better for several days. We will plan on bilateral RF ablation to the facet joint/medial branches of L4-5 and L5-S1 today. Procedure Details:: Lumbar RFA informed consent was obtained and the risk and benefits of the procedure was explained to the patient. Patient was placed prone on the procedure table. The patient was prepped and draped in sterile fashion. C-arm fluoroscopy was used to view the lumbar spine. The skin and subcutaneous tissues were anesthetized using lidocaine. I placed 20-gauge RF needles into the facet joints of L4-5 and L5-S1 bilaterally. We underwent sensory stimulation. There is good sensory stimulation at 0.8 V. We underwent motor stimulation. There is no motor stimulation at 2 V. We then anesthetized these levels with lidocaine and Depo- Medrol. I used a total of 80 mg Depo-Medrol for both levels. I then burned both levels of L4-5 and L5-S1 facet joint/medial branches bilaterally for 4 minutes at 80 ?C. Patient tolerated the procedure well with no complication. Plan and Disposition:: We will follow-up with her in 1 month. Will reevaluate her symptoms at that time.
== END 2021-08-16 12:05 | disposition home or self-care (01) ==
LOC: SC.PAINP 11:15
PROVIDERS: PCP Emergency Medicine; Visit Provider Anesthesiology
DX: M51.36 Other intervertebral disc degeneration, lumbar region (principal); M47.816 Spondylosis without myelopathy or radiculopathy, lumbar region; M54.06 Panniculitis affecting regions of neck and back, lumbar region; G43.909 Migraine, unspecified, not intractable, without status migrainosus; E78.5 Hyperlipidemia, unspecified; I10 Essential (primary) hypertension; K21.9 Gastro-esophageal reflux disease without esophagitis; F41.9 Anxiety disorder, unspecified; F32.A Depression, unspecified; M79.18 Myalgia, other site; M19.90 Unspecified osteoarthritis, unspecified site; Z88.0 Allergy status to penicillin
CPT/HCPCS: 64635; 64636; J1040

== ENCOUNTER → 2021-12-02 09:43 | Outpatient (POV) | payer MEDICAID, SELFPAY ==
[2021-12-02 10:17] VITALS: BP 122/79; PULSE 77; RESP 18; TEMP 36.4; O2SAT 99; BMI 29.7
--- NOTE | 2021-12-02 11:52 | P.CONS_ITS ---
[facility] Pain Management SOAP Note Subjective:: Patient is a pleasant 56-year-old female presents today for follow-up. Patient is currently being treated for degenerative disc disease of the lumbar spine with lumbar radiculopathy, lumbar spondylosis, lumbar facet arthropathy. When we last saw this patient, she had a bilateral RFA at L4-L5 and L5-S1. Patient states that she had significant relief in the area for about 80 to 90%. Today, she is complaining of worsening low back pain just above the ablation sites. She denies any recent traumas or falls. Denies any loss of bowel or bladder functions. She is currently being managed with gabapentin 800 mg twice a day, muscle relaxer, and compounding cream. Patient states that these medications are not helping low back pain. She rates her pain today as 8 out of 10. [facility] #[id number] with an active morphine equivalent of 0. ORT score low risk. General: No recent weight changes, no fever, no sleep disturbances Respiratory: No cough, no shortness of air, no recurring pulmonary infections Cardiovascular/peripheral vascular: No chest pain, no palpitations, no edema, no shortness of breath Gastrointestinal: No new onset incontinence, normal bowel movements reported Genitourinary: No new onset incontinence Musculoskeletal: Low back pain Psychiatric: [Normal mood/affect] Neurological: [Denies weakness in extremities], [denies balance issues] Objective:: General: Alert and oriented x3, no acute distress, pleasant and cooperative, [on room air] Lungs: Respirations even and unlabored, symmetrical chest expansion Eyes: PERRL Musculoskeletal: Flexion and extension of lumbar [spine] somewhat guarded secondary to pain; L1-L3 levels are tender to palpation. No redness or skin bulging noted. Neurological: Speech clear, no gross sensory deficit Assessment:: Degenerative disc disease of the lumbar spine with lumbar radiculopathy symptoms Lumbar facet arthropathy Lumbar spondylosis Plan:: Patient has been having worsening low back pain in the last couple of months. I will start her on prednisone 20 mg twice a day and lidocaine patches. Follow- up in 2 weeks. Patient has been instructed to contact the clinic with any concerns before the next appointment. Dr. Peters has reviewed this note and agrees with this plan of care. This note was dictated using voice recognition software and make contain errors or omissions. [facility] History Medical History: Reports:: Aneurysm, Anxiety, Arrhythmia, Cancer, Depression, Gastroesophageal Reflux Disease(GERD), Hyperlipidemia, Hypertension, Migraine, Palpitations Denies:: Diabetes Mellitus Type 1, Diabetes Mellitus Type 2, Internal Pacemaker, MRSA, Seizures *Have you ever received a pneumonia vaccine?: No *Have you received a flu vaccine this season?: Yes Other Medical History: Reports: Arthritis, Fibromyalgia. Denies: Blood Transfusion Reaction Laterality Cases: Right: Arthroscopy Knee, Carpal Tunnel Release, Bilateral: Other Other Surgeries: Yes: Cardiac Catheterization, Cholecystectomy, Colonoscopy, Hysterectomy-Total, Tubal Ligation, Other. No: Pacemaker Amputation: No Fractures: No - *Social History Smoking Status: Never smoker Alcohol Intake: never Substance Use Type: denies use *Occupational Status:: other Housing: house Household Members: spouse *Travel in the last 8 weeks: None - Psychiatric History Pschychiatric History:: Reports:: Anxiety, Depression Family Hx:: Anemia, Cancer, Coronary Artery Disease, Diabetes, Hyperlipidemia, Hypertension, Stroke, Thyroid Disorder
== END ==
PROVIDERS: Visit Provider Student in an Organized Health Care Education/Training Program
DX: M51.16 Intervertebral disc disorders with radiculopathy, lumbar region (principal); M54.06 Panniculitis affecting regions of neck and back, lumbar region; M47.896 Other spondylosis, lumbar region
CPT/HCPCS: 99212; G0463

== ENCOUNTER → 2021-12-27 08:38 | Outpatient (CLI) | payer MEDICAID, SELFPAY ==
[2021-12-29 08:12] LABS: LH 62.3 mIU/mL (.); Progesterone <0.1 ng/mL (.)
[2022-01-02 17:44] LABS: Estrogen 73 pg/mL (.)
== END ==
PROVIDERS: Visit Provider Emergency Medicine
DX: F32.A Depression, unspecified (principal); G47.00 Insomnia, unspecified; N95.1 Menopausal and female climacteric states
CPT/HCPCS: 82672; 83001; 83002; 84144

== ENCOUNTER → 2022-03-24 13:36 | Outpatient (POV) | payer MEDICAID, SELFPAY ==
[2022-03-24 14:22] VITALS: BP 117/75; PULSE 90; RESP 20; TEMP 36.5; O2SAT 98; BMI 29.7
--- NOTE | 2022-03-24 14:47 | HMH.PAINSOAP ---
[facility] Pain Management SOAP Note Subjective:: Patient is a pleasant 57-year-old female who presents today for follow-up. Patient is currently being treated for degenerative disc disease of the lumbar spine with lumbar radiculopathy symptoms, lumbar spondylosis, lumbar facet arthropathy, myofascial pain, neck pain. We have been managing this patient with injective therapy and ablation. She had a bilateral RFA at L4-L5 and L5-S1 in November 2021 this provided significant relief. She continues to have relief in this area. Today, she is complaining of pain around her neck, trapezoids, and around her left shoulder blade. She has been having difficulty with washing dishes and with mobility of her neck and shoulders. She rates her pain today as 5 out of 10. She states that her pain has been unbearable that she took 2 to 3 tablets of tramadol that were prescribed by Dr. Villar the other day. For pain, patient is prescribed gabapentin 800 mg twice a day, muscle relaxer, and compounding cream. Pedro [id number] with an active morphine equivalent of 0. Review of Systems: General: No recent weight changes, no fever, no sleep disturbances Respiratory: No cough, no shortness of air, no recurring pulmonary infections Cardiovascular/peripheral vascular: No chest pain, no palpitations, no edema, no shortness of breath Gastrointestinal: No new onset incontinence, normal bowel movements reported Genitourinary: No new onset incontinence Musculoskeletal: Neck shoulder blade pain Neurological: [Denies weakness in extremities], [denies balance issues] Objective:: Physical Exam: General: Alert and oriented x3, no acute distress, pleasant and cooperative Lungs: Respirations even and unlabored, symmetrical chest expansion Eyes: PERRL Musculoskeletal: Flexion and extension of lumbar [spine] somewhat guarded secondary to pain, [antalgic gait noted]; tender to palpation around bilateral cervical paraspinous, upper trapezius, left rhomboid Neurological: Speech clear, no gross sensory deficit Assessment:: Degenerative disease of lumbar spine, lumbar facet arthropathy, lumbar spondylosis, myofascial pain Plan:: Patient presents today with worsening neck and shoulder pain. She is tender to palpation around these areas. She previously had trigger point injections in this area that provided significant relief. We will schedule the patient for trigger point injections around the bilateral cervical paraspinous, upper trapezius, left rhomboid. I will continue the patient's diclofenac 75 mg twice a day and provide the patient with 2 months worth of refill. Patient is still doing well with the bilateral lumbar RFA at L4-L5 and L5-S1. Patient has been instructed to contact the clinic with any concerns before the next appointment. Dr. Peters has reviewed this note and agrees with this plan of care. This note was dictated using voice recognition software and make contain errors or omissions. [facility] History Medical History: Reports:: Aneurysm, Anxiety, Arrhythmia, Cancer, Depression, Gastroesophageal Reflux Disease(GERD), Hyperlipidemia, Hypertension, Migraine, Palpitations Denies:: Diabetes Mellitus Type 1, Diabetes Mellitus Type 2, Internal Pacemaker, MRSA, Seizures *Have you ever received a pneumonia vaccine?: No *Have you received a flu vaccine this season?: Yes Other Medical History: Reports: Arthritis, Fibromyalgia. Denies: Blood Transfusion Reaction Laterality Cases: Right: Arthroscopy Knee, Carpal Tunnel Release, Bilateral: Other Other Surgeries: Yes: Cardiac Catheterization, Cholecystectomy, Colonoscopy, Hysterectomy-Total, Tubal Ligation, Other. No: Pacemaker Amputation: No Fractures: No - *Social History Smoking Status: Never smoker Alcohol Intake: never Substance Use Type: denies use *Occupational Status:: other Housing: house Household Members: spouse *Travel in the last 8 weeks: None - Psychiatric History Pschychiatric History:: Reports:: Anxiety, Depression
== END ==
PROVIDERS: Visit Provider Student in an Organized Health Care Education/Training Program
DX: M51.36 Other intervertebral disc degeneration, lumbar region (principal); M54.06 Panniculitis affecting regions of neck and back, lumbar region; M47.26 Other spondylosis with radiculopathy, lumbar region; M60.9 Myositis, unspecified; M19.90 Unspecified osteoarthritis, unspecified site
CPT/HCPCS: 99212; G0463

== ENCOUNTER 2022-04-04 09:06 | Day surgery (SDC) | payer MEDICAID, SELFPAY ==
[2022-04-04 09:17] VITALS: BP 125/81; PULSE 83; RESP 18; TEMP 36.2; O2SAT 98; BMI 28.8
[2022-04-04 09:33] VITALS: BP 132/94; PULSE 80; RESP 20
--- NOTE | 2022-04-04 09:38 | HMH.PMPROC ---
- Procedure Date: 04/04/22 Time: 09:38 Anesthesiologist:: Moshe Ellsworth CRNA Complications:: None Pre-procedure Diagnosis:: Bilateral trapezius muscle pain. Cervical myofascial paraspinous muscle pain. Bilateral rhomboid inflammation myofascial pain. Post-procedure Diagnosis:: Same Indications for Procedure:: This patient is a pleasant 57-year-old female that presents our injection clinic today with pain and discomfort across the bilateral trapezius muscles, bilateral posterior cervical paraspinous muscles as well as bilateral rhomboid muscles. She rates the pain 7/10. Procedure Details:: Details of the procedure were explained to the patient. The patient was taken to the procedure room placed in the sitting position. 2 markers were placed over the bilateral trapezius muscles. 2 markers were placed at the base of the cervical spine. 2 markers were placed over the bilateral rhomboid muscle. Using a 25-gauge needle and a 12 cc syringe containing a solution of 0.5% Marcaine +1% lidocaine and 40 mg of Depo-Medrol 2 cc were injected at each site. This was done after negative aspiration. Patient tolerated the procedure without difficulty. There are no complications Plan and Disposition:: Patient was discharged without incident. She will return to the clinic for follow-up visit.
[2022-04-04 09:42] VITALS: BP 125/76; PULSE 71; RESP 18; O2SAT 99
== END 2022-04-04 09:43 | disposition home or self-care (01) ==
LOC: SC.PAINP 09:07
PROVIDERS: PCP Emergency Medicine; Visit Provider Nurse Anesthetist, Certified Registered
DX: M79.18 Myalgia, other site (principal); M19.90 Unspecified osteoarthritis, unspecified site
CPT/HCPCS: 20553; J1040

== ENCOUNTER 2022-04-16 11:00 | Outpatient (RCR) | payer MEDICAID, SELFPAY | END 2022-05-20 10:00 | disposition home or self-care (01) | LOC: PT.CARL 11:00 | PROVIDERS: PCP Emergency Medicine; Visit Provider Specialist | DX: M54.2 Cervicalgia (principal); G43.009 Migraine without aura, not intractable, without status migrainosus | CPT/HCPCS: 20560; 20561; 97010; 97014; 97033; 97110; 97140; 97163; G0283 ==

== ENCOUNTER → 2022-04-17 09:29 | Outpatient (POV) | payer MEDICAID, SELFPAY ==
[2022-04-17 09:44] VITALS: BP 111/84; PULSE 72; RESP 20; O2SAT 94; BMI 28.5
--- NOTE | 2022-04-17 11:44 | HMH.PAINSOAP ---
[facility] Pain Management SOAP Note Subjective:: Patient is a pleasant 57-year-old female who presents today for follow-up of bilateral cervical, trapezius, rhomboid muscle injections on 04/04/2022. We are currently treating the patient for bilateral trapezius muscle pain, cervical myofascial paraspinous muscle pain, bilateral rhomboid inflammation myofascial pain. Patient states that she has had significant improvement of her symptoms since having this injection. She rates it at a 75% improvement and states it still is continuing to work. She rates her pain today a 3 out of 10. She states her pain is in her upper back and neck area and describes it as an ache frequently accompanied by headaches. Patient denies any new trauma or injury to the site. She denies any change to the location or type of pain she experiences. She currently is taking gabapentin 800 mg twice a day that is prescribed by Dr. Villar. She denies any side effects from this medication. She states this medication is working well. She also uses a compounding cream that gives significant improvement along with Zanaflex as needed. Patient is seen physical therapy where she gets dry needling. She states this does help manage her pain. Her Pedro is [id number]. It has been reviewed and appropriate. Review of Systems: General: No recent weight changes, no fever, no sleep disturbances Respiratory: No cough, no shortness of air, no recurring pulmonary infections Cardiovascular/peripheral vascular: No chest pain, no palpitations, no edema, no shortness of breath Gastrointestinal: No new onset incontinence, normal bowel movements reported Genitourinary: No new onset incontinence Musculoskeletal: Upper back pain and neck pain Psychiatric: [Normal mood/affect] Neurological: [Denies weakness in extremities], [denies balance issues] Objective:: Physical Exam: General: Alert and oriented x3, no acute distress, pleasant and cooperative Lungs: Respirations even and unlabored, symmetrical chest expansion Eyes: PERRL Musculoskeletal: Flexion and extension of cervical [spine] somewhat guarded secondary to pain, [antalgic gait noted] Neurological: Speech clear, no gross sensory deficit Assessment:: Bilateral trapezius muscle pain, cervical myofascial paraspinous muscle pain, bilateral rhomboid inflammation myofascial pain Plan:: Patient has significant relief from her bilateral cervical, trapezius and rhomboid injection. At this time the patient feels her injection is still working and does not need further injective therapy. Patient will return to clinic in 3 months for follow-up and reevaluation of symptoms. Patient has been instructed to contact the clinic with any concerns before the next appointment. Dr. Peters has reviewed this note and agrees with this plan of care. This note was dictated using voice recognition software and make contain errors or omissions. [facility] History I have reviewed the patient's past medical history: Yes Medical History: Reports:: Aneurysm, Anxiety, Arrhythmia, Cancer, Depression, Gastroesophageal Reflux Disease(GERD), Hyperlipidemia, Hypertension, Migraine, Palpitations Denies:: Diabetes Mellitus Type 1, Diabetes Mellitus Type 2, Internal Pacemaker, MRSA, Seizures *Have you ever received a pneumonia vaccine?: No *Have you received a flu vaccine this season?: Yes Other Medical History: Reports: Arthritis, Fibromyalgia. Denies: Blood Transfusion Reaction Laterality Cases: Right: Arthroscopy Knee, Carpal Tunnel Release, Bilateral: Other Other Surgeries: Yes: Cardiac Catheterization, Cholecystectomy, Colonoscopy, Hysterectomy-Total, Tubal Ligation, Other. No: Pacemaker Amputation: No Fractures: No - *Social History Smoking Status: Never smoker Alcohol Intake: never Substance Use Type: denies use *Occupational Status:: other Housing: house Household Members: spouse *Travel in the last 8 weeks: None - Psychiatric History Pschychiatric History:: Reports:: Anxiety
== END ==
PROVIDERS: PCP Family Medicine; Visit Provider Nurse Practitioner Family
DX: M79.18 Myalgia, other site (principal); M19.90 Unspecified osteoarthritis, unspecified site
CPT/HCPCS: 99212; G0463

== ENCOUNTER → 2022-06-02 09:05 | Outpatient (POV) | payer MEDICAID, SELFPAY ==
[2022-06-02 09:12] VITALS: BP 138/74; PULSE 63; RESP 20; TEMP 36.4; O2SAT 100; BMI 29.4
--- NOTE | 2022-06-02 09:16 | EXP.PAIN.SOA ---
[facility] Pain Management SOAP Note Subjective:: Patient is a pleasant 57-year-old female who presents today for follow-up. We are currently treating the patient for myofascial pain of bilateral cervical paraspinous, bilateral trapezius muscles, and bilateral rhomboid inflammation. Today the patient rates her pain a 6 out of 10. She states the pain is primarily in her neck and bilateral shoulders. Patient describes this as a aching, throbbing sensation that is worse with increased activity. Patient denies any new trauma or injury. She denies any change to the location or type of pain she experiences. Patient does use a compounding cream that provides some improvement of her symptoms as well as occasional heat. Patient states ice typically makes her achy sensation worse. Patient does currently see physical therapy for this pain. She has tried dry needling however at her last appointment it did cause more headache related symptoms. Patient does do daily stretching exercises at home that provides some improvement of her symptoms. In the past she has done injective therapy that provided 75% of improvement and lasted for over 1 month. She is currently managed with gabapentin 800 mg twice a day by Dr. Villar's office. Patient denies any side effects from this medication. She states this medication does adequately help manage her pain. Her Pedro is [id number]. It has been reviewed and appropriate. Review of Systems: General: No recent weight changes, no fever, no sleep disturbances Respiratory: No cough, no shortness of air, no recurring pulmonary infections Cardiovascular/peripheral vascular: No chest pain, no palpitations, no edema, no shortness of breath Gastrointestinal: No new onset incontinence, normal bowel movements reported Genitourinary: No new onset incontinence Musculoskeletal: Bilateral neck and shoulder pain Psychiatric: [Normal mood/affect] Neurological: [Denies weakness in extremities], [denies balance issues] Objective:: Physical Exam: General: Alert and oriented x3, no acute distress, pleasant and cooperative Lungs: Respirations even and unlabored, symmetrical chest expansion Eyes: PERRL Musculoskeletal: Flexion and extension of cervical [spine] somewhat guarded secondary to pain, [antalgic gait noted]. Extreme point tenderness at her bilateral cervical paraspinous and trapezius muscles Neurological: Speech clear, no gross sensory deficit Assessment:: Myofascial pain of bilateral cervical paraspinous, bilateral trapezius muscles, bilateral rhomboid Plan:: Patient is experiencing worsening pain in her neck and bilateral shoulders. Patient had limited range of motion of her cervical spine and extreme point tenderness at her bilateral cervical paraspinous and bilateral trapezius muscles during today's exam. I have discussed with the patient regarding repeating trigger point injections at these sites. Risk and benefits were discussed with the patient. She would like to proceed forward with these injections. We will schedule her for TPI of bilateral cervical paraspinous and bilateral trapezius muscles. Patient has been instructed to contact the clinic with any concerns before the next appointment. Dr. Peters has reviewed this note and agrees with this plan of care. This note was dictated using voice recognition software and make contain errors or omissions. [facility] History (Updated 05/22/22 @ 19:00 by Chanel Jiménez MD) Aneurysm Anxiety Arrhythmia Depression Episodic migraine GERD (gastroesophageal reflux disease) Palpitations Family History (Updated 05/22/22 @ 16:34 by Ginger Degroot) Other Anemia Cancer Coronary artery disease Diabetes Hyperlipidemia Hypertension Stroke Thyroid disorder Social History Smoking Status: Never smoker second hand exposure: No alcohol intake: never substance use type: denies use current occupational status: other Travel in the last 8 weeks: None [employer]
== END ==
PROVIDERS: PCP Emergency Medicine; Visit Provider Nurse Practitioner Family
DX: M79.12 Myalgia of auxiliary muscles, head and neck (principal)
CPT/HCPCS: 99212; G0463

== ENCOUNTER → 2022-06-02 10:17 | Outpatient (CLI) | payer MEDICAID, SELFPAY ==
--- NOTE | 2022-06-02 10:20 | MM_ITS ---
PROCEDURE INFORMATION: Exam: MG Bilateral Screening 3D Mammography Exam date and time: 06/02/2022 10:28 AM Age: 57 years old Clinical indication: Screening examination. Her sister had breast cancer at age 53. TECHNIQUE: Imaging protocol: Bilateral Screening tomosynthesis and 2D mammography including computer-aided detection (CAD) when performed. COMPARISON: 1. MG MM DIG SCREENING MAMM BI W/CAD 05/31/2021 11:04 AM 2. MG MM tomosynthesis screening BI 05/17/2020 2:38 PM 3. MG SCBI MM Dig screening mamm BI w/CAD 11/26/2017 4:33 PM FINDINGS: MAMMOGRAPHY: Breast composition: There are scattered areas of fibroglandular density. Mass: None. Architectural distortion: None. Calcifications: No suspicious calcifications. Asymmetric density: None. Skin thickening: None. Axillary adenopathy: None. IMPRESSION: No mammographic evidence of malignancy. Annual screening is recommended unless otherwise clinically indicated. ASSESSMENT: BI-RADS Category 1: Negative
[2022-06-02 14:43] LABS: Vitamin B12 488 pg/mL (239-931)
== END ==
PROVIDERS: PCP Emergency Medicine; Visit Provider Specialist
DX: Z12.31 Encounter for screening mammogram for malignant neoplasm of breast (principal); G43.009 Migraine without aura, not intractable, without status migrainosus
CPT/HCPCS: 36415; 77063; 77067; 82607; 82746

== ENCOUNTER 2022-06-10 12:20 | Day surgery (SDC) | payer MEDICAID, SELFPAY ==
[2022-06-10 12:38] VITALS: BP 138/90; PULSE 70; RESP 18; TEMP 36.7; O2SAT 100; BMI 29.4
[2022-06-10 12:46] VITALS: BP 115/77; PULSE 79; RESP 18; O2SAT 99
[2022-06-10 12:47] VITALS: BP 135/83; PULSE 79; RESP 18; O2SAT 99
[2022-06-10 13:11] VITALS: BP 122/84; PULSE 69; RESP 18; O2SAT 100
--- NOTE | 2022-06-10 13:37 | EXP.PAIN.PRO ---
Procedure Date: 06/10/22 Time: 12:50 Anesthesiologist:: Moshe Ellsworth CRNA Complications:: None Pre-procedure Diagnosis:: Myofascial pain of bilateral cervical paraspinous, bilateral trapezius muscles, bilateral rhomboid Post-procedure Diagnosis:: Same Indications for Procedure:: Patient is a pleasant 57-year-old female who presents today for trigger point injections of her bilateral cervical paraspinous and bilateral trapezius muscles. We are currently treating the patient for myofascial pain of bilateral cervical paraspinous, bilateral trapezius muscles and bilateral rhomboid. Today the patient rates her pain a 6 out of 10. She states pain is primarily on her left side of her neck radiating into her left shoulder and down her left scapula, as well as a little on her right. Patient denies any new trauma or injury. Patient denies any change of location or type of pain she experiences. She is currently managed with gabapentin 800 mg twice a day by Dr. Villar's office. Patient denies any side effects from this medication. She states this medication is adequately helping manage her pain. Physical exam General: Alert and oriented x3, no acute distress, pleasant cooperative on room air Lungs: Respirations even and unlabored, symmetrical chest expansion Eyes: PERRL Musculoskeletal: Flexion and extension of lumbar spine somewhat guarded secondary to pain, antalgic gait noted Neurological: Speech clear, no gross sensory deficit Procedure Details:: Informed consent was obtained and the risk and benefits of the procedure were explained to the patient. The patient was taken to the procedure room where noninvasive monitoring was placed on the patient including a noninvasive blood pressure cuff and a pulse oximeter. The neck and upper trapezius area were prepped using ChloraPrep. Trigger points were palpated and marked each of these trigger points were injected with bupivacaine 0.25% 2 mL and Depo-Medrol. A total of 80 mg Depo-Medrol was used for bilateral trigger points of the upper trapezius muscles and cervical paraspinous muscles. Patient tolerated the procedure well with no complications. Plan and Disposition:: The patient was observed in the pain clinic for period of time and then discharged home neurologically intact. We will see the patient back in 2 weeks for follow-up and reevaluation of symptoms. Patient has been counseled to contact the office with any questions or concerns between now and her next appointment date. Dr. Bux is read this note and agrees with this plan of care. This note was dictated using voice recognition software and may contain errors or omissions.
== END 2022-06-10 13:11 | disposition home or self-care (01) ==
LOC: SC.PAINP 12:21
PROVIDERS: PCP Emergency Medicine; Visit Provider Nurse Anesthetist, Certified Registered
DX: M79.12 Myalgia of auxiliary muscles, head and neck (principal)
CPT/HCPCS: 20552; J1040

== ENCOUNTER → 2022-09-19 17:54 | Outpatient (CLI) | payer MEDICAID, SELFPAY ==
[2022-09-19 15:05] LABS: Amphetamine/Metha Screen,Urine Negative ng/ml (<1000)
[2022-09-19 15:06] LABS: Barbiturates Screen,Urine Negative ng/ml (<200); Benzodiazepines Screen,Urine Negative ng/ml (<200)
[2022-09-19 15:06] LABS: Basophils # 0.2 K/mm3 (0-0.2); Basophils % 2.5 % (0.1-2.0); Chloride 102 mmol/L (98-107); Eosinophils # 0.3 K/mm3 (0.0-0.4); Eosinophils % 4.1 % (0.1-12.0); Hematocrit 41.7 % (37.0-47.0); Hemoglobin 13.6 g/dL (12.2-16.2); Lymphocytes # 1.3 K/mm3 (0.7-4.5); Lymphocytes % 18.2 % (10-50); Mean Corpuscular HGB Conc 32.6 g/dL (31.8-35.4); Mean Corpuscular Volume 91.9 fl (81-99); Mean Platelet Volume 9.8 fl (7.4-10.4); Monocytes # 0.4 K/mm3 (0.1-1.0); Monocytes % 6.3 % (1.7-9.3); Neutrophils # 4.8 K/mm3 (1.8-7.8); Neutrophils % 68.9 % (37.0-80.0); Platelet Count 357 K/mm3 (142-424); Red Blood Count 4.53 M/mm3 (4.20-5.40)
[2022-09-19 15:07] LABS: Cannabinoid Screen,Urine Negative ng/ml (<50); Cocaine Screen,Urine Negative ng/ml (<300)
[2022-09-19 15:07] LABS: Potassium 4.4 mmoL/L (3.5-5.1); Sodium 142 mmol/L (136-145)
[2022-09-19 15:08] LABS: Methadone Screen,Urine Negative ng/ml (<300)
[2022-09-19 15:09] LABS: Opiate Screen,Urine Negative ng/ml (<300); Phencyclidine Screen,Urine Negative ng/ml (<25)
[2022-09-19 15:09] LABS: Alanine Aminotransferase 32 U/L (12-78); Albumin Level 4.6 g/dl (3.5-5.0); Albumin/Globulin Ratio 1.6 (1.1-1.8); Alkaline Phosphatase 101 U/L (38-126); Anion Gap 16.4 mEq/L (5-15); Aspartate Amino Transferase 40 U/L (14-36); Bilirubin,Total 0.8 mg/dl (0.2-1.3); Blood Urea Nitrogen 14 mg/dl (7-17); Carbon Dioxide 28 mmol/L (22.0-30.0); Estimated Glomerular Filt Rate 57 ml/min (>60); GFR (African American) 69 ML/MIN (>60); Globulin 2.8 g/dL (1.3-3.2); Total Protein,Serum 7.4 g/dl (6.3-8.2)
[2022-09-19 15:10] LABS: Calcium 9.1 mg/dl (8.4-10.2); Chol/HDL Ratio 3.9 (1-3.5); Cholesterol 213 mg/dl (140-200); Glucose 67 mg/dl (74-100); HDL Cholesterol 54 mg/dl (40-60); Triglycerides 183 mg/dl (30-150); VLDL Cholesterol 37 mg/dL (0-40)
[2022-09-19 15:27] LABS: Direct LDL Cholesterol 94.32 mg/dL (100-129)
[2022-09-19 15:34] LABS: Erythrocyte Sedimentation Rate 26 mm/hr (0-30)
[2022-09-19 15:36] LABS: Free T4 (Free Thyroxine) 0.93 ng/dl (0.78-2.19)
[2022-09-19 15:49] LABS: Thyroid Stimulating Hormone 1.83 uIU/mL (0.465-4.68)
[2022-09-19 17:49] LABS: 25-OH Vitamin D, Total 25.1 ng/mL (30-100)
== END ==
PROVIDERS: PCP Emergency Medicine; Visit Provider Emergency Medicine
DX: R53.83 Other fatigue (principal); E55.9 Vitamin D deficiency, unspecified; Z79.899 Other long term (current) drug therapy
CPT/HCPCS: 80053; 80061; 80305; 82306; 84439; 84443; 85025; 85651

== ENCOUNTER → 2022-09-29 10:03 | Outpatient (CLI) | payer MEDICAID, SELFPAY ==
--- NOTE | 2022-09-29 10:06 | XR_ITS ---
FINAL REPORT CLINICAL HISTORY: pain FINDINGS: AP and lateral views of the sacrum and coccyx were obtained. There is no prior exam for comparison. There is no acute fracture or other acute osseous abnormality. The SI joints are symmetric bilaterally. The sacrococcygeal articulation appears within normal limits. No acute soft tissue abnormality is present. IMPRESSION: No acute abnormality of the sacrum or coccyx. Reviewed, Interpreted and Dictated by Maggie Aguilera MD Transcribed by Clarisse Barrett Authenticated and [facility]
== END ==
PROVIDERS: PCP Emergency Medicine; Visit Provider Emergency Medicine
DX: M53.3 Sacrococcygeal disorders, not elsewhere classified (principal)
CPT/HCPCS: 72220

== ENCOUNTER → 2022-12-02 13:22 | Outpatient (CLI) | payer MEDICAID, SELFPAY ==
--- NOTE | 2022-12-02 13:27 | XR_ITS ---
FINAL REPORT CLINICAL HISTORY: knee pain FINDINGS: LEFT KNEE 3 views of the left knee were obtained. There is total knee prosthesis with a long segment femoral component. No loosening is identified. There is no acute fracture or dislocation. Normal bony alignment. Soft tissues are unremarkable. IMPRESSION: Total knee prosthesis. No acute abnormality identified. Reviewed, Interpreted and Dictated by Mac Whitley MD Transcribed by Clarisse Barrett Authenticated and [facility]
--- NOTE | 2022-12-02 13:27 | XR_ITS ---
FINAL REPORT CLINICAL HISTORY: knee pain FINDINGS: RIGHT KNEE 3 views of the right knee were obtained. There is no acute fracture or dislocation. Visualized joint spaces are normally aligned. There are mild hypertrophic changes along the undersurface of the patella. There is a small calcific or ossific density adjacent to the medial femoral condyle. Soft tissues are unremarkable. IMPRESSION: Mild hypertrophic changes along the undersurface of the patella. No acute bony abnormality. Reviewed, Interpreted and Dictated by Mac Whitley MD Transcribed by Clarisse Barrett Authenticated and [facility]
== END ==
PROVIDERS: PCP Emergency Medicine; Visit Provider Orthopaedic Surgery
DX: M25.562 Pain in left knee (principal); M25.561 Pain in right knee
CPT/HCPCS: 73562

== ENCOUNTER 2022-12-19 09:56 | Day surgery (SDC) | payer MEDICAID, SELFPAY ==
[2022-12-16 14:21] VITALS: BMI 31.6
[2022-12-19 10:17] VITALS: BP 147/93; PULSE 80; RESP 18; TEMP 36.5; O2SAT 99
[2022-12-19 11:10] VITALS: O2SAT 97
[2022-12-19 11:55] VITALS: BP 83/52; PULSE 78; RESP 18; TEMP 36.2; O2SAT 94
--- NOTE | 2022-12-19 11:55 | HMH.SCOPE ---
Procedure: Date: 12/19/22 Patient Date of :: 1965 Procedure Performed:: Esophagogastroduodenoscopy with biopsies Total colonoscopy to terminal ileum Indications:: Patient is a 57-year-old from [facility] I had previously performed laparoscopic cholecystectomy for biliary dyskinesia on 11/15/2014. I did perform EGD and colonoscopy on her on 09/18/2015 for multiple abdominal complaints and symptoms. At that time she had some biopsy-proven fundic gland polyps. 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 Colon was normal and random biopsies were normal. She has some bowel irregularity and also has some gas, bloating, and occasional obstipation. She has tried MiraLAX and Linzess in the past. Patient is also had some dysphagia and states that she has to make a conscious effort with chewing and swallowing. Patient had transiently lived in [place] between 2017 and 2019 and had seen a commercial sales representative there. She does state that during that time she did have a colonoscopy. Exact details are unknown. She does have a family history of colon cancer in her sister. Performing Provider:: Bry Christianson MD Referring Provider:: Omer Villar MD. Sedation:: MAC sedation Procedure:: Patient history was obtained and appropriate physical examination was performed. Patient's medications and allergies were reviewed. Informed consent was obtained after explaining the benefits, alternatives, and risks of the procedure including, but not limited to, bleeding, perforation, missed lesions, and adverse reaction to anesthesia medications. Patient was transported to endoscopy procedure room. Patient was connected to monitoring devices. Throughout the procedure the patient's blood pressure, pulse, and oxygen saturations were monitored continuously. Patient identification and planned procedure were verified by the staff. Attention was first turned to upper endoscopy. Olympus endoscope was inserted via the oropharynx. Overall esophagus appeared relatively unremarkable with potentially some findings consistent with esophageal dysmotility. Gastroesophageal junction was encountered at approximately 36 cm. Stomach was cannulated and insufflated. Retroflexion revealed potentially small tiny hiatal hernia. She had some polyps in the fundus consistent with gastric fundic gland polyps. There was minimal diffuse gastropathy which was biopsied. Pylorus was traversed. Duodenum appeared unremarkable. A couple biopsies were obtained of the presumed fundic gland polyps. Endoscope was withdrawn into the distal esophagus and a couple biopsies were obtained at the gastroesophageal junction to evaluate for Flowers's esophagus. Biopsies were obtained of the distal esophagus to assess for microscopic esophagitis. Endoscope was withdrawn. Patient was re-positioned in lateral decubitus position for colonoscopy. Digital anorectal exam was performed. Variable stiffness Olympus colonoscope was inserted and advanced under direct visualization to the cecum. Adequacy of the colonic preparation was noted. The colonoscope was advanced a short distance into the terminal ileum. The colonoscope was then slowly withdrawn while carefully examining the color, texture, anatomy, and integrity of the mucosoa circumferentially. Within the rectum retroflexion was performed. Colonoscope was then withdrawn. Colonic preparation was fair throughout with opaque particulate liquid stool. Significant amount of suctioning of opaque liquid stool with high-volume trans colonoscopic irrigation allowed for adequate visualization. There were no polyps, masses noted. She had some redundancy and atony of the colon. Retroflexion revealed nonpathologic internal hemorrhoids. Findings:: Gastroesophageal junction at 36 cm Tiny hiatal hernia Fundic gland polyps Fair colonic preparation Recommendations:: No obvious endoscopic find
[2022-12-19 12:05] VITALS: BP 89/49; PULSE 70; RESP 16; O2SAT 99
[2022-12-19 12:15] VITALS: BP 94/62; PULSE 72; RESP 17; O2SAT 99
[2022-12-19 12:25] VITALS: BP 120/76; PULSE 76; RESP 17; O2SAT 99
== END 2022-12-19 12:29 | disposition home or self-care (01) ==
PROVIDERS: PCP Emergency Medicine; Visit Provider Surgery
PROC: 0DJ08ZZ Inspection of Upper Intestinal Tract, Via Natural or Artificial Opening Endoscopic (ICD-10-PCS; CPT 43235; principal; 2022-12-19 11:30)
DX: K22.70 Barrett's esophagus without dysplasia (principal); K31.7 Polyp of stomach and duodenum; Z86.010 Personal history of colon polyps; Z80.0 Family history of malignant neoplasm of digestive organs; Z79.899 Other long term (current) drug therapy
CPT/HCPCS: 43239; 45378; J2704

== ENCOUNTER → 2023-01-22 14:50 | Outpatient (POV) | payer MEDICAID, SELFPAY ==
[2023-01-22 15:08] VITALS: BP 128/74; PULSE 83; RESP 18; O2SAT 97; BMI 32.4
--- NOTE | 2023-01-22 15:48 | EXP.PAIN.SOA ---
[facility] Pain Management SOAP Note Subjective:: Patient is a pleasant 57-year-old female who presents today for follow-up. We are currently treating the patient for myofascial pain of bilateral cervical paraspinous, bilateral trapezius muscles and bilateral rhomboid muscles. Today she rates her pain a 5 out of 10. Patient states over the last 2 months she has had increasingly worse neck pain with associated headaches. Patient denies any new trauma or injury. She does describe these as an aching, throbbing sensation that is worse with increased activity. She states when she is more active the pain changes to a sharp, hot stabbing sensation. She does state the pain interferes with her ability to do activities of daily living such as cooking and cleaning. Patient states that she is on a medication for her migraines and has been much better controlled following this change to Ajovy. Patient denies any recent imaging. She is currently managed with gabapentin 800 mg twice a day and tramadol 50 mg 3 times a day from Dr. Villar's office. Patient denies any side effects from this medication. Her Pedro is [id number]. Its been reviewed and appropriate. Review of Systems: General: No recent weight changes, no fever, no sleep disturbances Respiratory: No cough, no shortness of air, no recurring pulmonary infections Cardiovascular/peripheral vascular: No chest pain, no palpitations, no edema, no shortness of breath Gastrointestinal: No new onset incontinence, normal bowel movements reported Genitourinary: No new onset incontinence Musculoskeletal: Neck pain, headache Psychiatric: [Normal mood/affect] Neurological: [Denies weakness in extremities], [denies balance issues] Objective:: Physical Exam: General: Alert and oriented x3, no acute distress, pleasant and cooperative Lungs: Respirations even and unlabored, symmetrical chest expansion Eyes: PERRL Musculoskeletal: Flexion and extension of cervical [spine] somewhat guarded secondary to pain, [antalgic gait noted] extreme point tenderness along bilateral cervical paraspinous and bilateral trapezius muscles Neurological: Speech clear, no gross sensory deficit Assessment:: Neck pain with cervical radiculopathy symptoms, myofascial pain of bilateral cervical paraspinous, bilateral trapezius muscles and bilateral rhomboid muscles Plan:: Patient is experiencing significant pain in her neck with radiating symptoms into her shoulder muscles. Patient did have limited range of motion of her cervical spine as well as extreme point tenderness along her bilateral cervical paraspinous and trapezius muscles. I have discussed with the patient that she may benefit from trigger point injections to this area. Risk and benefits were discussed with the patient and she would like to proceed forward with this plan of care. I will also order x-ray imaging of her cervical spine with the plan to proceed forward with more advanced imaging following. Patient will be scheduled for trigger point injections of her bilateral cervical paraspinous and bilateral trapezius muscles. Patient has been instructed to contact the clinic with any concerns before the next appointment. Dr. Peters has reviewed this note and agrees with this plan of care. This note was dictated using voice recognition software and make contain errors or omissions. [facility] Disclaimer: The information contained in this section may have been updated after the patient was seen, as this information can be updated by other users. Medical History (Updated 01/05/23 @ 18:10 by Chanel Jiménez MD) Aneurysm Anxiety Arrhythmia Depression Episodic migraine GERD (gastroesophageal reflux disease) Palpitations Surgical History (Updated 01/01/23 @ 09:45 by BILLY Thomson) History of carpal tunnel release History of cholecystectomy History of colonoscopy History of esophagogastroduodenoscopy (EGD) History of hysterectomy History of knee replacement Hx of oophorectomy
== END ==
PROVIDERS: PCP Emergency Medicine; Visit Provider Nurse Practitioner Family
DX: M54.12 Radiculopathy, cervical region (principal); M54.2 Cervicalgia; M79.18 Myalgia, other site
CPT/HCPCS: 99212; G0463

== ENCOUNTER → 2023-01-22 15:49 | Outpatient (CLI) | payer MEDICAID, SELFPAY ==
--- NOTE | 2023-01-22 15:53 | XR_ITS ---
FINAL REPORT TECHNIQUE: 5 views CLINICAL HISTORY: NECK PAIN FINDINGS: There is no fracture present. There is no malalignment. There are no significant degenerative changes. IMPRESSION: No acute process. Reviewed, Interpreted and Dictated by Kiya Brooks MD Transcribed by Caridad Teague Authenticated and [facility] [place] [place]
== END ==
PROVIDERS: PCP Emergency Medicine; Visit Provider Nurse Practitioner Family
DX: M54.2 Cervicalgia (principal)
CPT/HCPCS: 72050

== ENCOUNTER 2023-01-27 13:55 | Day surgery (SDC) | payer MEDICAID, SELFPAY ==
[2023-01-27 14:08] VITALS: BP 133/101; PULSE 85; RESP 18; TEMP 36.6; O2SAT 99; BMI 32.8
[2023-01-27 14:16] VITALS: BP 135/82; PULSE 73; RESP 16; O2SAT 99
--- NOTE | 2023-01-27 14:16 | EXP.PAIN.PRO ---
Procedure Date: 01/27/23 Time: 14:10 Anesthesiologist:: Moshe Ellsworth CRNA Complications:: None Pre-procedure Diagnosis:: Myofascial pain bilateral posterior cervical paraspinous muscles. Myofascial pain bilateral trapezius muscles. Post-procedure Diagnosis:: Same. Indications for Procedure:: Patient is a very pleasant 58-year-old female comes our clinic today for trigger point injections bilateral posterior paraspinous muscles cervical spine as well as bilateral trapezius muscle trigger point injections. Patient had difficulty with flexion, extension, left and right rotation. Has extreme point tenderness over the bilateral trapezius area. Procedure Details:: Details of the procedure explained to the patient. Patient taken to procedure room placed in the sitting position. The area over the posterior cervical spine as well as bilateral trapezius muscle was cleansed using chlorhexidine as a cleansing solution. Using a 22-gauge inch and half needle and a solution of 0.25% Marcaine and 1% lidocaine and 40 mg of Depo-Medrol. 2 cc were injected in the bilateral distal paraspinous muscles. 3 separate areas were injected in the bilateral trapezius muscles with 2 cc at each position. Patient tolerated procedure without difficulty. There are no complications. Plan and Disposition:: Patient was discharged without incident.
== END 2023-01-27 14:16 | disposition home or self-care (01) ==
PROVIDERS: PCP Emergency Medicine; Visit Provider Nurse Anesthetist, Certified Registered
DX: M79.18 Myalgia, other site (principal)
CPT/HCPCS: 20552; J1040

== ENCOUNTER → 2023-05-06 23:29 | Outpatient (CLI) | payer MEDICAID, SELFPAY | PROVIDERS: PCP Emergency Medicine; Visit Provider Emergency Medicine | DX: E66.9 Obesity, unspecified (principal); Z68.35 Body mass index [BMI] 35.0-35.9, adult; N39.46 Mixed incontinence | CPT/HCPCS: 87086 ==

== ENCOUNTER → 2023-05-11 13:45 | Outpatient (CLI) | payer MEDICAID, SELFPAY ==
--- NOTE | 2023-05-11 13:48 | XR_ITS ---
FINAL REPORT CLINICAL HISTORY: Right hip pain COMPARISON: none FINDINGS: RIGHT HIP 3 views of the right hip demonstrate no acute fracture or dislocation. The joint spaces appear normal. The visualized bony structures are well aligned. No soft tissue abnormality is seen. IMPRESSION: No acute bony abnormality. Reviewed, Interpreted and Dictated by Mac Whitley MD Transcribed by Maya Cm Authenticated and [facility]
--- NOTE | 2023-05-11 13:48 | XR_ITS ---
FINAL REPORT CLINICAL HISTORY: Right knee pain COMPARISON: none FINDINGS: LEFT KNEE 3 views of the left knee were obtained. There is no acute fracture or dislocation. There is mild osteophyte formation in the medial joint margin. There is moderate patellofemoral joint space narrowing. No evidence of effusion. Visualized joint spaces are normally aligned. Soft tissues are unremarkable. 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 Reviewed, Interpreted and Dictated by Mac Whitley MD Transcribed by Maya Cm Authenticated and [facility]
== END ==
PROVIDERS: PCP Emergency Medicine; Visit Provider Emergency Medicine
DX: M25.561 Pain in right knee (principal); M25.551 Pain in right hip
CPT/HCPCS: 73502; 73562

== ENCOUNTER → 2023-05-22 07:27 | Outpatient (CLI) | payer MEDICAID, SELFPAY ==
--- NOTE | 2023-05-22 07:46 | MR_ITS ---
FINAL REPORT CLINICAL HISTORY: migraine recent falls 20 ml prohance given COMPARISON: 06/15/2021 FINDINGS: Multiplanar MR imaging of the brain was performed without and with contrast. Scattered foci of increased T2 signal are seen in the cerebral white matter that have a nonspecific appearance, without enhancement after intravenous contrast administration. These were noted on the prior MRI of 2020, and are not significantly changed since that time. There is no evidence of intracranial hemorrhage or mass. No abnormal ventricular dilatation is identified. There is no evidence of shift of the midline structures. No abnormal extra-axial fluid collection is seen. No area of abnormal restricted diffusion is identified. The posterior fossa and brainstem have an unremarkable appearance. No abnormal contrast enhancement is seen. Normal major vessel vascular flow voids are seen. IMPRESSION: Multiple foci of abnormal signal in the periventricular white matter, not significantly changed since the previous MRI of 2020. These are nonspecific, but most likely represent either chronic ischemic/gliotic microvascular change, changes secondary to vasculitis or less likely demyelination. No acute intracranial abnormality. Reviewed, Interpreted and Dictated by Bry Servin III, MD Transcribed by Harriet Crystal Authenticated and [facility]
[2023-05-22 07:53] LABS: Blood Urea Nitrogen 18 mg/dl (7-17); Estimated Glomerular Filt Rate 46 ml/min (>60); GFR (African American) 56 ML/MIN (>60)
== END ==
LOC: RAD 07:27
PROVIDERS: PCP Emergency Medicine; Visit Provider Emergency Medicine
DX: G43.909 Migraine, unspecified, not intractable, without status migrainosus (principal); R32 Unspecified urinary incontinence; E66.9 Obesity, unspecified; Z68.35 Body mass index [BMI] 35.0-35.9, adult
CPT/HCPCS: 36415; 70553; 82565; 84520; A9576

== ENCOUNTER → 2023-05-25 23:38 | Outpatient (CLI) | payer MEDICAID, SELFPAY ==
[2023-05-25 18:08] LABS: Coronavirus 19, PCR Not Detected (NotDetected); Influenza A, PCR Not Detected (NotDetected); Influenza B, PCR Not Detected (NotDetected)
== END ==
PROVIDERS: PCP Emergency Medicine; Visit Provider Emergency Medicine
DX: R06.02 Shortness of breath (principal); R05.9 Cough, unspecified; R50.9 Fever, unspecified
CPT/HCPCS: 87636

== ENCOUNTER → 2023-06-04 10:52 | Outpatient (CLI) | payer MEDICAID, SELFPAY ==
--- NOTE | 2023-06-04 10:52 | MM_ITS ---
PROCEDURE INFORMATION: Exam: MG Bilateral Screening 3D Mammography Exam date and time: 06/04/2023 10:54 AM Age: 58 years old Clinical indication: Screening examination; Family history of breast cancer in sister; Sister's age: 53 years TECHNIQUE: Imaging protocol: Bilateral Screening tomosynthesis and 2D mammography including computer-aided detection (CAD) when performed. COMPARISON: 1. MG MM DIG SCREENING MAMM BI W/CAD 06/02/2022 10:28 AM 2. MG MM DIG SCREENING MAMM BI W/CAD 05/31/2021 11:04 AM FINDINGS: MAMMOGRAPHY: Breast composition: There are scattered areas of fibroglandular density. Mass: None. Architectural distortion: None. Calcifications: No suspicious calcifications. Asymmetric density: None. Skin thickening: None. Axillary adenopathy: None. IMPRESSION: No mammographic evidence of malignancy. Annual screening is recommended unless otherwise clinically indicated. ASSESSMENT: BI-RADS Category 1: Negative
== END ==
PROVIDERS: PCP Emergency Medicine; Visit Provider Emergency Medicine
DX: Z12.31 Encounter for screening mammogram for malignant neoplasm of breast (principal)
CPT/HCPCS: 77063; 77067

== ENCOUNTER → 2023-06-19 08:25 | Outpatient (CLI) | payer MEDICAID, SELFPAY ==
--- NOTE | 2023-06-19 08:28 | CA_ITS ---
APPROVED REPORT EXAM: Comprehensive 2D, Doppler, and color-flow Echocardiogram Scoop Machine Operator: Miguelina Diaz RVT Ht: 5 ft 7 in Wt: 225lbs BSA: 2.13 BP: 125/93 mmHg Indications: EDEMA,CP,PALPS,HTN,HLD TDS-LIMITED WINDOWS 2D Dimensions IVSd 1.91 cm F: 0.6-1.0 LA Volume 63.50 mL LVOT 2.17 cm (M/F) 1.5-2.5 LA Volume Index 29.81 mL/m2 (M/F) 16-34 M-Mode Dimensions RVDd 3.34 cm (0.9-2.6) LA Diam 4.31 cm (1.9-4.0) LVDd 3.69 cm (3.5-5.7) Ao Diam 3.16 cm (2.0-3.7) LVDs 2.66 cm (3.5-5.7) IVSd 0.61 cm (0.6-1.1) PWd 0.76 cm (0.6-1.1) EF (Teich) 55.00% FS 27.90% EDV (Teich) 57.80 mL TAPSE 2.39 (<1.7) ESV (Teich) 26.00 mL LV Diastology E Decel Time 217.00 (160-240 msec) E/A Ratio 0.9 MED E' 12.60 (< 7 cm/sec) E'/MED E' Ratio 5.31 (>14) LAT E' 11.00 (<10 cm/sec) E/LAT E' Ratio 6.08 (>14) Aortic Valve AO Peak GR. 8.90 mmHg Mitral Valve MV E Max Popeye. 67.00 (40-130 cm/s) MV A Velocity 77.00 (40-130 cm/s) E/A Ratio 0.87 MV Decel. Time 217.00 (160-240 ms) MV PHT 63.00 ms Pulmonary Valve PV Peak Velocity 66.00 (50-150 cm/s) Tricuspid Valve TR P. Velocity 236.00 cm/s RAP Estimate 10.00 mmHg RVSP 32.20 mmHg Left Ventricle The left ventricle is normal size. The left ventricular systolic function is normal. The left ventricular ejection fraction is within the normal range. There is increased LV wall thickness. There is normal LV segmental wall motion. The left ventricular diastolic function is normal. LVEF is 55%. Right Ventricle The right ventricle is normal size. The right ventricular systolic function is normal. Atria The left atrium is normal in size. The right atrium size is normal. Aortic Valve The aortic valve is mildly thickened. There is no aortic valvular stenosis. Trace aortic regurgitation. Mitral Valve Mild mitral annular calcification. The mitral valve is normal in structure. No evidence of mitral valve stenosis. Trace mitral regurgitation. Tricuspid Valve The tricuspid valve leaflets are thin and pliable. Trace tricuspid regurgitation. There is insufficient TR jet to estimate RVSP. Pulmonic Valve The pulmonary valve is normal in structure. Trace pulmonic regurgitation. Great Vessels The aortic root is normal in size. The ascending aorta is not well visualized. The IVC is not well visualized. Pericardium There is no pericardial effusion. Other Information Study Quality: Technically Difficult Conclusion This was a technically difficult study due to poor acoustic windows. Normal biventricular systolic function. No significant valvular stenosis or regurgitation. Electronically signed by : Mariah Rutherford MD 06/22/2023 23:06:53
== END ==
PROVIDERS: PCP Emergency Medicine; Visit Provider Emergency Medicine
DX: R60.9 Edema, unspecified (principal)
CPT/HCPCS: 93306

== ENCOUNTER 2023-06-24 08:43 | Outpatient (CLI) | payer MEDICAID, SELFPAY ==
[2023-06-24] VITALS (8 sets, daily range): BP systolic 113–138; BP diastolic 65–81; PULSE 55–71; RESP 16–18; TEMP 36.1–36.7; O2SAT 95–100; BMI 35.2
--- NOTE | 2023-06-24 08:43 | CT_ITS ---
APPROVED REPORT Photostat Operator Helper: CLINICAL INDICATION Chest Pain TECHNIQUE Image Acquisition: A 128 slice MDCT scanner (ScreenHitsa View) was used for data acquisition. A noncontrast coronary calcium scan was performed. A CT attenuation threshold of 130 Hounsfield units (HU) was used for the detection of calcium in contiguous voxels of 1 sq mm in area to be counted as individual lesions. Bolus tracking in the ascending aorta with a threshold of 180 HU was performed. Immediately afterwards, ECG synchronized cardiac CT was then performed from the cardiac base to apex using retrospective gating with ECG tube current modulation. A total of 85 mL of Isovue 370 mg/mL contrast medium was administered at 5 mL/sec followed by a saline flush using a biphasic injection protocol. A tube voltage of 120 KVp was used. The patient received the following medications prior to the cardiac CT. 5 mg of intravenous metoprolol. 0.8 mg of sublingual nitroglycerin. The average heart rate at the time of acquisition was 60 bpm and regular. Image Reconstruction Transaxial images were reconstructed at 0.67 mm slide thickness. Data was reviewed interactively on an advanced workstation capable of 2 and 3-dimensional displays in all conventional reconstruction formats, including multiplanar reformations, maximum intensity projections, curved multiplanar reformations, and volume rendered reconstructions. When applicable, selected routine images describing the relevant coronary anatomy and pathology were saved and sent to PACS. Complications None Technical Quality Overall image quality was good. Coronary artery opacification was adequate. Total DLP (Dose-Length Product) is 1489.7 mGy-cm. The reported value represents the total of one or more individual components during the CT acquisition of this date and at this time, and as such, the same value may appear in more than one CT report depending on the interpreting/reporting physicians. COMPARISON None FINDINGS CT Coronary Calcium Scoring LMA (Left Main Artery) = 0 LAD (Left Anterior Descending) = 0 LCX (Left Coronary Circumflex) = 0 RCA (Right Coronary Artery) = 0 Total Calcium Score = 0 using the AJ-130 method. The interpretation of the calcium heart score is based on the following continuum*: 0 = no calcified plaque detected (risk of coronary artery disease is very low ??? less than 5%) 1-10 = calcium detected in extremely minimal levels (risk of coronary diseases is still low ??? less than 10%) 11-100 = mild levels of plaque detected with certainty (mild or minimal narrowing of heart arteries is likely) 101-400 = definite,at least moderate levels of plaque detected (relatively high risk of a heart attack within 3-5 years) >401-999 = extensive levels of plaque detected (high risk of heart attack, high levels of vascular disease are present, high likelihood of at least one significant coronary narrowing) *The calcium heart score quantifies the burden of coronary calcification/plaque in the coronary arteries. The calcium heart score is not able to evaluate the presence or burden of non-calcified (i.e. soft) plaque. There is no identifiable calcification in the aortic valve, mitral annulus or mitral valve, pericardium, or myocardium. Coronary CT Angiography Coronaries have normal origin and proximal course. The coronary arterial system is right dominant. Note: Stenosis is reported as maximum percentage diameter stenosis. Stenosis grading is reported using the following scheme: Quantitative Stenosis Grading: Left Main (LM): The left main originates normally from the left sinus of Valsalva. The LM bifurcates into the left anterior descending artery and left circumflex artery. The LM is patent with no evide
[2023-06-24 09:55] LABS: Anion Gap 10.3 mEq/L (5-15); Blood Urea Nitrogen 14 mg/dl (7-17); Carbon Dioxide 32 mmol/L (22.0-30.0); Chloride 100 mmol/L (98-107); Creatinine Clearance Estimated 82 mL/min (50-200); Estimated Glomerular Filt Rate 46 ml/min (>60); GFR (African American) 56 ML/MIN (>60); Glucose 100 mg/dl (74-100); Potassium 4.3 mmoL/L (3.5-5.1); Sodium 138 mmol/L (136-145)
[2023-06-24 11:37] LABS: Alanine Aminotransferase 25 U/L (12-78); Albumin Level 3.7 g/dl (3.5-5.0); Alkaline Phosphatase 77 U/L (38-126); Anion Gap 10.2 mEq/L (5-15); Aspartate Amino Transferase 39 U/L (14-36); Bilirubin,Direct 0.1 mg/dl (0.0-0.4); Bilirubin,Indirect 0.6 mg/dL (0.0-0.9); Bilirubin,Total 0.7 mg/dl (0.2-1.3); Bilirubin,Unconjugated 0.6 mg/dL (0.0-1.1); Blood Urea Nitrogen 14 mg/dl (7-17); Calcium 8.6 mg/dl (8.4-10.2); Carbon Dioxide 28 mmol/L (22.0-30.0); Chloride 102 mmol/L (98-107); Chol/HDL Ratio 3.9 (1-3.5); Cholesterol 152 mg/dl (140-200); Creatinine Clearance Estimated 99 mL/min (50-200); Estimated Glomerular Filt Rate 57 ml/min (>60); GFR (African American) 69 ML/MIN (>60); Glucose 94 mg/dl (74-100); HDL Cholesterol 39 mg/dl (40-60); Potassium 4.2 mmoL/L (3.5-5.1); Sodium 136 mmol/L (136-145); Total Protein,Serum 6.5 g/dl (6.3-8.2); Triglycerides 172 mg/dl (30-150); VLDL Cholesterol 34 mg/dL (0-40)
[2023-06-24 11:45] LABS: Basophils # 0.1 K/mm3 (0-0.2); Basophils % 0.7 % (0.1-2.0); Eosinophils # 0.1 K/mm3 (0.0-0.4); Eosinophils % 1.9 % (0.1-12.0); Hemoglobin 11.8 g/dL (12.2-16.2); Lymphocytes # 1.5 K/mm3 (0.7-4.5); Lymphocytes % 20.6 % (10-50); Mean Corpuscular HGB Conc 34.6 g/dL (31.8-35.4); Mean Corpuscular Hemoglobin 31.8 pg (27.0-31.2); Mean Corpuscular Volume 91.8 fl (81-99); Mean Platelet Volume 9.2 fl (7.4-10.4); Monocytes # 0.4 K/mm3 (0.1-1.0); Monocytes % 6.1 % (1.7-9.3); Neutrophils # 5.1 K/mm3 (1.8-7.8); Neutrophils % 70.8 % (37.0-80.0); Platelet Count 274 K/mm3 (142-424); Red Cell Distribution Width 13.6 % (11.5-17.5); White Blood Count 7.2 K/mm3 (4.8-10.8)
[2023-06-24 11:46] LABS: NT Pro Brain Natriuretic Pep. 404 pg/mL (0-125)
[2023-06-24 11:48] LABS: Direct LDL Cholesterol 79.18 mg/dL (100-129)
[2023-06-24 12:07] LABS: Thyroid Stimulating Hormone 2.39 uIU/mL (0.465-4.68)
[2023-06-24 12:49] LABS: Free T4 (Free Thyroxine) 1.04 ng/dl (0.78-2.19)
== END 2023-06-24 12:00 | disposition home or self-care (01) ==
PROVIDERS: PCP Emergency Medicine; Visit Provider Internal Medicine
DX: R07.9 Chest pain, unspecified (principal); R06.00 Dyspnea, unspecified; I10 Essential (primary) hypertension; I11.9 Hypertensive heart disease without heart failure; E78.5 Hyperlipidemia, unspecified; R60.9 Edema, unspecified
CPT/HCPCS: 36415; 75574; 80048; 80061; 80076; 83880; 84439; 84443; 85025; Q9967

== ENCOUNTER → 2023-07-28 15:07 | Outpatient (CLI) | payer MEDICAID, SELFPAY ==
[2023-07-28 13:38] LABS: Amphetamine/Metha Screen,Urine Negative ng/ml (<1000)
[2023-07-28 13:39] LABS: Barbiturates Screen,Urine Negative ng/ml (<200)
[2023-07-28 13:41] LABS: Benzodiazepines Screen,Urine Negative ng/ml (<200); Cannabinoid Screen,Urine Negative ng/ml (<50)
[2023-07-28 13:42] LABS: Cocaine Screen,Urine Negative ng/ml (<300)
[2023-07-28 13:43] LABS: Methadone Screen,Urine Negative ng/ml (<300); Opiate Screen,Urine Negative ng/ml (<300)
[2023-07-28 13:44] LABS: Phencyclidine Screen,Urine Negative ng/ml (<25)
== END ==
PROVIDERS: PCP Emergency Medicine; Visit Provider Emergency Medicine
DX: Z79.899 Other long term (current) drug therapy (principal)
CPT/HCPCS: 80305

== ENCOUNTER 2023-10-13 12:38 | Outpatient (CLI) | payer MEDICAID, SELFPAY ==
[2023-10-13 13:24] LABS: Basophils # 0.1 K/mm3 (0-0.2); Basophils % 0.9 % (0.1-2.0); Eosinophils # 0.2 K/mm3 (0.0-0.4); Eosinophils % 2.1 % (0.1-12.0); Hematocrit 36.9 % (37.0-47.0); Hemoglobin 12.6 g/dL (12.2-16.2); Lymphocytes # 2.1 K/mm3 (0.7-4.5); Lymphocytes % 21.6 % (10-50); Mean Corpuscular HGB Conc 34.1 g/dL (31.8-35.4); Mean Corpuscular Volume 90.8 fl (81-99); Mean Platelet Volume 9.2 fl (7.4-10.4); Monocytes # 0.6 K/mm3 (0.1-1.0); Monocytes % 6.1 % (1.7-9.3); Neutrophils # 6.9 K/mm3 (1.8-7.8); Neutrophils % 69.3 % (37.0-80.0); Platelet Count 343 K/mm3 (142-424); Red Blood Count 4.07 M/mm3 (4.20-5.40); Red Cell Distribution Width 14.7 % (11.5-17.5); White Blood Count 9.9 K/mm3 (4.8-10.8)
[2023-10-13 13:38] LABS: Alanine Aminotransferase 23 U/L (12-78); Albumin Level 4.1 g/dl (3.5-5.0); Alkaline Phosphatase 84 U/L (38-126); Aspartate Amino Transferase 34 U/L (14-36); Bilirubin,Indirect 0.6 mg/dL (0.0-0.9); Bilirubin,Total 0.6 mg/dl (0.2-1.3); Bilirubin,Unconjugated 0.6 mg/dL (0.0-1.1); Chol/HDL Ratio 4.2 (1-3.5); Cholesterol 202 mg/dl (140-200); Estimated Glomerular Filt Rate 51 ml/min (>60); GFR (African American) 62 ML/MIN (>60); HDL Cholesterol 48 mg/dl (40-60); Total Protein,Serum 6.6 g/dl (6.3-8.2); Triglycerides 221 mg/dl (30-150); VLDL Cholesterol 44 mg/dL (0-40)
[2023-10-13 13:49] LABS: C-Reactive Protein 3.5 mg/L (0-4)
== END 2023-10-13 23:59 ==
LOC: LAB 12:39
PROVIDERS: PCP Internal Medicine; Visit Provider Nurse Practitioner Primary Care
DX: Z79.899 Other long term (current) drug therapy (principal)
CPT/HCPCS: 36415; 80061; 80076; 82565; 85025; 86140

== ENCOUNTER 2023-11-17 18:39 | Outpatient (CLI) | payer MEDICAID, SELFPAY ==
[2023-11-17 18:48] LABS: 25-OH Vitamin D, Total 57.9 ng/mL (30-100)
== END 2023-11-17 23:59 ==
LOC: LAB.DROPOF 18:39
PROVIDERS: PCP Internal Medicine; Visit Provider Internal Medicine
DX: M17.11 Unilateral primary osteoarthritis, right knee (principal); E66.9 Obesity, unspecified; Z68.36 Body mass index [BMI] 36.0-36.9, adult
CPT/HCPCS: 82306

== ENCOUNTER 2023-11-25 14:08 | Outpatient (CLI) | payer MEDICAID, SELFPAY ==
--- NOTE | 2023-11-25 14:09 | MR_ITS ---
FINAL REPORT TECHNIQUE: Multiplanar MR imaging of the right knee was obtained after the administration of intravenous contrast. CLINICAL HISTORY: rt knee pain 22ML PROHANCE GIVEN FINDINGS: There is moderate to severe patellar chondromalacia. There is greater than usual contrast-enhancement in the suprapatellar bursa which may represent synovitis. There is a small joint effusion. There is 9 mm of lateral patellar subluxation. A lobular cystic mass is seen in the posterior knee measuring 30 mm in height consistent with ganglion cyst. 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 Greater than usual contrast-enhancement in the suprapatellar bursa which may represent synovitis. 9 mm of lateral patellar subluxation. 30 mm ganglion cyst in the posterior knee. Reviewed, Interpreted and Dictated by Bry Servin III, MD Transcribed by Rima Gleason Authenticated and [facility]
[2023-11-25 14:34] LABS: Blood Urea Nitrogen 21 mg/dl (7-17); Estimated Glomerular Filt Rate 39 ml/min (>60); GFR (African American) 47 ML/MIN (>60)
[2023-11-25] MEDS: GADOTERIDOL INJ 17ML SYRINGE 22 ML IV (15:49)
[2023-11-25] MEDS: SODIUM CHLORIDE 0.9% 10ML SYR (RAD ONLY) 10 ML IV (15:49)
== END 2023-11-25 23:59 ==
LOC: RAD 14:09
PROVIDERS: PCP Internal Medicine; Visit Provider Internal Medicine
DX: M25.561 Pain in right knee (principal)
CPT/HCPCS: 36415; 73723; 82565; 84520; A9576

== ENCOUNTER 2023-11-26 11:00 | Outpatient (RCR) | payer MEDICAID, SELFPAY ==
--- NOTE | 2023-11-04 16:47 | HMH.PTOPEV ---
PT Outpatient Evaluation Rehab PT Outpatient Evaluation Start: 11/04/23 14:56 Freq: Status: Active Protocol: Document 11/04/23 15:01 JOSEFINA (Rec: 11/04/23 16:34 JOSEFINA [id number]) E-signed By Shell Appiah, PT Outpatient Therapy Subjective History Subjective History This is an initial evaluation for 58 y/o female who presents with chronic neck and shoulder pain. Pt reports the following: It started when I was a teenager. I have always had neck problems. I've had trigger point injections, dry needling, nothing has helped. Sitting and sedentary tasks are the worst for my pain. My muscles stay tight. I've tried ice packs, heat, hot shower, pain medication (narcotics), tramadol helped a little. Touble sleeping. Symptoms: Headache (halo presentation), unsteady on feet, neck pain, muscle pain. Comorbidities: Fibromyalgia, RA or psoriatic (not sure yet) , Migraines, GERD, IBS, white matter disease, L carpal tunnel, hx of R carpal tunnel release, hx of R RC tear. Multiple medications including Gabapentin, Tramdol as needed . Denies numbness or tingling Previous: PT: Ultrasound, TENS, massage, and HEAT worked the best when I was here last Imaging: Denies recent MRI. Previous MRI impression: Mild bilateral neural foraminal stenoses at C5-C6 Pt's goal: Get my ROM and relieve some of the pain New diagnosis of cancer in past 12 No months? Chief Complaint Pain,Spasms Symptom Type Ache,Sharp Symptoms Relieved By Prescription Meds,Activity Symptoms Aggravated By Sitting Current Functional Limitations Reaching,Lifting,Desk Work/ Reading,Driving,Sleeping, Standing,Sitting,Recreation Activity,Balance Level of pain today (0-10) 5 Pain scale - at its best (0-10) 4 Pain scale - at its worst (0-10) 8 Cervical Eval Palpation Cervical Muscles R Cervical Paraspinal,L Cervical Paraspinal,R Suboccipital,L Suboccipital,R Upper Trapezius,L Upper Trapezius,R Thoracic Paraspinals,L Thoracic Paraspinals Cervical/Thoracic Palpation Findings Tenderness,Trigger Point, Muscle Guarding Posture Head/C-Spine Posture Sitting Position C-Spine Flattened Head/C-Spine Posture Standing Position C-Spine Flattened Flexibility Deficits Upper Trapezius Muscle Length (R) Moderate Tightness,(L) Moderate Tightness Levaetor Scapulae Muscle Length (R) Moderate Tightness,(L) Moderate Tightness AROM Cervical Spine Extension Active Range of 20 Motion (degrees) Cervical Spine Flexion Active Range of 45 Motion (degrees) Cervical Spine Right Lateral Flexion 13 Active Range of Motion (degrees) Cervical Spine Left Lateral Flexion 15 Active Range of Motion (degrees) Cervical Spine Right Rotation Active 60 Range of Motion (degrees) Cervical Spine Left Rotation Active 56 Range of Motion (degrees) MMT Bilateral Deltoid (C5) 4- Good- Biceps Brachii Strength Grade 4- Good- Triceps Brachii Strength Grade 4- Good- Altered Sensation Left Upper extremity Dermatomes C6 Comment Light touch inconsistently diminished Special Test C-Spine Foraminal Compression (Spurling) Positive Left,Positive Right Test C-Spine Compression Test Positive Left,Positive Right Shoulder/Elbow Eval Shoulder Objective Measurements Shoulder ROM Bilateral Shoulder ROM Limitations Soft Tissue Tightness,Pain Shoulder Abduction Active Range of 110 Motion (degrees) Shoulder Flexion Active Range of Motion 150 (degrees) Query Text: Elbow Objective Measurements Neurologic Tests Median & Radial Nerve Bias Positive Left,Positive Right Ulnar Nerve Bias Positive Left,Positive Right Neck Disability Index Neck Disability Index Section 1: Pain Intensity The pain is moderate at the moment Section 2: Personal Care (washing, I can look after myself dressing, etc.) normally but it causes extra pain Section 3: Lifting Pain prevents me from lifting heavy weights, but I can manage light to Section 4: Reading I can hardly read at all because of severe pain in my neck Section 5: Headaches I have headaches almost all the time Section 6: Concentration I have a great deal of difficulty in concentrating when I want to Section 7: Work I can hardly do any work at all Section 8: Driving I can hardly drive at all because of severe pain in my neck Section 9: Sleeping My sleep is greatly disturbed (3-5 hrs sleepless) Section 10: Recreation I can't do any recreation activities NDI Score 36 Miscellaneous Dx PT Eval Objective Objective VAD screening: negative Cervicogenic MONDRAGON: Negative TTP suboccipitals but inconsistent MONDRAGON reports. Outpatient Therapy Assessment Impairments Problems/Impairmments Palpation Tenderness,Impaired Range of Motion,Impaired Strength,Impaired Sitting, Impaired Driving,Impaired Lifting,Impaired Recreational Activities,Impaired Desk/ Computer Activities,Subjective C/O Pain Prognosis Rehab Potential Good Comment Pt presents with impaired neck and B shoulder ROM in all planes, neck and shoulder strength, some positive ULTT ( Ulnar and median), and TTP cervical, thoracic, and spinal musculature. Pt would benefit from skilled PT to address deficits and decrease pain. Clinical Impression Consistent with Diagnosis Yes Consistent with Cervicalgia Short Term Goals Number of Weeks 3 Decreased Palpation Tenderness Yes: 2/4 TTP shoulder and spinal musculature to indicate dec irritability. Increase Range of Motion Yes: Pt will tolerate stretches to improve neck and shoulder ROM to WFL. Decrease Subjective C/O Pain Yes: 24 hour pain average to 10 Patient to be Ind w/ HEP Yes Car Worker Helper Goals Decreased Palpation Tenderness Yes: 0-1/4 TTP affected musculature. Increase Range of Motion Yes: WNL Increase Strength Yes: 5/5 shoulder strength bilaterally Improve Neck Disability Index Score Yes: Score reflecting minimal disability to improve QOL Decrease Subjective C/O Pain Yes: 24 hour pain average of to improve quality of life . Patient to be Ind w/ Advanced HEP Yes Outpatient Therapy Plan of Care Treatment Plan May Include Therapeutic Exercise Including Home Yes Exercise Program Manual Therapy Techniques Yes Neuromuscular Re-education Yes Therapeutic Activities to Return to Yes Previous Functional/Work Level ADL/Self Care Education Yes Dry Needling Yes Thermal Modalities Yes Electrical Stimulation Yes Ultrasound/Phonophoresis Yes Iontophoresis Yes Massage Yes Eval/Re-Eval Yes Frequency Times per week 2 Duration Number of Weeks 8 Addendums This patient is a candidate for social No or vocational rehab? Patient/Guardian verbally acknowledges Yes understanding of treatment program and consents to further treatment? Patient/Guardian verbally acknowledges Yes understanding of diagnosis, prognosis and goals for treatment? Eval Complexity PT Charges 77873 - High Complexity PHYSICIAN CERTIFICATION: I certify the specified therapy services for Nargis Abdi are required, authorized, and reviewed every 30 days.
== END 2023-11-26 12:05 | disposition home or self-care (01) ==
LOC: PT 11:00
PROVIDERS: PCP Internal Medicine; Visit Provider Internal Medicine
DX: M54.2 Cervicalgia (principal); M25.511 Pain in right shoulder; M25.512 Pain in left shoulder
CPT/HCPCS: 97010; 97014; 97035; 97110; 97140; 97163; 97530; G0283

== ENCOUNTER 2024-01-28 12:45 | Outpatient (CLI) | payer MEDICAID, SELFPAY ==
[2024-01-28 18:38] LABS: Alanine Aminotransferase 27 U/L (12-78); Albumin Level 4.1 g/dl (3.5-5.0); Albumin/Globulin Ratio 1.6 (1.1-1.8); Alkaline Phosphatase 91 U/L (38-126); Anion Gap 15.6 mEq/L (5-15); Aspartate Amino Transferase 37 U/L (14-36); Bilirubin,Total 0.5 mg/dl (0.2-1.3); Blood Urea Nitrogen 18 mg/dl (7-17); Calcium 9.3 mg/dl (8.4-10.2); Carbon Dioxide 24 mmol/L (22.0-30.0); Chloride 107 mmol/L (98-107); Cholesterol 169 mg/dl (140-200); Estimated Glomerular Filt Rate 46 ml/min (>60); GFR (African American) 56 ML/MIN (>60); Globulin 2.6 g/dL (1.3-3.2); Glucose 98 mg/dl (74-100); HDL Cholesterol 56 mg/dl (40-60); Potassium 4.6 mmoL/L (3.5-5.1); Sodium 142 mmol/L (136-145); Total Protein,Serum 6.7 g/dl (6.3-8.2); Triglycerides 202 mg/dl (30-150); VLDL Cholesterol 40 mg/dL (0-40)
[2024-01-28 18:49] LABS: Direct LDL Cholesterol 85.56 mg/dL (100-129)
[2024-01-28 20:30] LABS: Hemoglobin A1C 5.2 % (4.0-6.0)
== END 2024-01-28 23:59 | disposition home or self-care (01) ==
LOC: LAB.DROPOF 01-29 12:45
PROVIDERS: PCP Internal Medicine; Visit Provider Internal Medicine
DX: I12.9 Hypertensive chronic kidney disease with stage 1 through stage 4 chronic kidney disease, or unspecified chronic kidney disease (principal); N18.31 Chronic kidney disease, stage 3a
CPT/HCPCS: 80053; 80061; 83036

== ENCOUNTER 2024-03-07 10:35 | Outpatient (CLI) | payer MEDICAID, SELFPAY ==
--- NOTE | 2024-03-07 10:42 | XR_ITS ---
FINAL REPORT CLINICAL HISTORY: kidney stone..lt side FINDINGS: SINGLE VIEW ABDOMEN A single view of the abdomen was obtained. There is a nonobstructive bowel gas pattern. There are no abnormally dilated loops of small bowel. No renal stone is identified. There are likely phleboliths in the pelvis. Mild fecal impaction is noted. IMPRESSION: Nonobstructive bowel gas pattern. No renal stones identified. Reviewed, Interpreted and Dictated by Kiya Brooks MD Transcribed by Rima Gleason Authenticated and [facility]
== END 2024-03-07 23:59 | disposition home or self-care (01) ==
LOC: LAB.DROPOF 10:36
PROVIDERS: PCP Internal Medicine; Visit Provider Internal Medicine
DX: R31.9 Hematuria, unspecified (principal); N39.0 Urinary tract infection, site not specified
CPT/HCPCS: 74018; 87086

== ENCOUNTER 2024-04-28 10:43 | Outpatient (CLI) | payer MEDICAID, SELFPAY ==
--- NOTE | 2024-04-28 10:48 | CT_ITS ---
FINAL REPORT CLINICAL HISTORY: ACUTE RT SIDE WEAKNESS COMPARISON: MRI dated 05/22/2023 FINDINGS: Axial images of the head were obtained without contrast. Coronal and sagittal reformatted images were also obtained. This study was performed with techniques to keep radiation doses as low as reasonably achievable (ALARA). Individualized dose reduction techniques using automated exposure control or adjustment of mA and/or kV according to the patient's size were employed. There is generalized age-appropriate atrophy. Periventricular low-attenuation areas are seen consistent with mild to moderate chronic ischemic changes. There is no evidence of intracranial hemorrhage or mass. There is no evidence of acute infarct. There is no evidence of shift of the midline structures. No skull abnormality is seen on the bone window images. IMPRESSION: Moderate atrophy and mild to moderate periventricular chronic ischemic changes. No acute intracranial abnormality identified. Reviewed, Interpreted and Dictated by Bry Servin III, MD Transcribed by aHrriet Crystal Authenticated and [facility]
== END 2024-04-28 23:59 | disposition home or self-care (01) ==
LOC: RAD 10:43
PROVIDERS: PCP Internal Medicine; Visit Provider Physician Assistant
DX: R53.1 Weakness (principal)
CPT/HCPCS: 70450

== ENCOUNTER 2024-05-12 09:18 | Outpatient (CLI) | payer MEDICAID, SELFPAY ==
--- NOTE | 2024-05-12 09:21 | XR_ITS ---
FINAL REPORT CLINICAL HISTORY: RIGHT knee pain COMPARISON: None FINDINGS: 3 views of the right knee were obtained. There is no acute fracture or dislocation. There is mild narrowing of the medial compartment joint space. Small osteophytes are noted along the undersurface of the patella. There is a 10 mm ossific density in the posterior joint space probably representing an intra-articular loose body. There is no acute soft tissue abnormality. IMPRESSION: No acute abnormality identified. Degenerative changes and probable loose body. Reviewed, Interpreted and Dictated by Mac Wihtley MD Transcribed by Maya Cm Authenticated and . [facility]
== END 2024-05-12 23:59 | disposition home or self-care (01) ==
LOC: RAD 09:19
PROVIDERS: PCP Internal Medicine; Visit Provider Orthopaedic Surgery
DX: M25.561 Pain in right knee (principal); M25.562 Pain in left knee
CPT/HCPCS: 73562

== ENCOUNTER 2024-05-27 09:55 | Outpatient (CLI) | payer MEDICAID, SELFPAY ==
--- NOTE | 2024-05-27 10:45 | ECG_ITS ---
APPROVED REPORT Exam: Resting ECG HR:57 bpm ECG Measurements Heart Rate 57 AXES OK 158 P 38 QRSd 92 QRS -8 QT 418 T 14 QTc 413 Conclusion SINUS BRADYCARDIA LEFT VENTRICULAR HYPERTROPHY AND ST-T CHANGE [VOLTAGE CRITERIA PLUS ST/T ABNORMALITY] ABNORMAL ECG UNCONFIRMED REPORT Electronically signed by : Stuart Carpio MD 05/28/2024 08:33:17
[2024-05-27 10:59] LABS: Basophils # 0.1 K/mm3 (0-0.2); Basophils % 0.8 % (0.1-2.0); Eosinophils # 0.4 K/mm3 (0.0-0.4); Eosinophils % 4.8 % (0.1-12.0); Hemoglobin 12.2 g/dL (12.2-16.2); Lymphocytes # 1.2 K/mm3 (0.7-4.5); Lymphocytes % 13.6 % (10-50); Mean Corpuscular HGB Conc 30.6 g/dL (31.8-35.4); Mean Corpuscular Hemoglobin 30.3 pg (27.0-31.2); Mean Corpuscular Volume 99.2 fl (81-99); Mean Platelet Volume 10.1 fl (7.4-10.4); Monocytes # 0.5 K/mm3 (0.1-1.0); Neutrophils # 6.3 K/mm3 (1.8-7.8); Neutrophils % 74.8 % (37.0-80.0); Platelet Count 355 K/mm3 (142-424); Red Blood Count 4.03 M/mm3 (4.20-5.40); Red Cell Distribution Width 14.4 % (11.5-17.5); White Blood Count 8.4 K/mm3 (4.8-10.8)
[2024-05-27 11:04] LABS: Chloride 111 mmol/L (98-107); Potassium 4.3 mmoL/L (3.5-5.1); Sodium 139 mmol/L (136-145)
[2024-05-27 11:07] LABS: Blood Urea Nitrogen 16 mg/dl (7-17); Creatinine Clearance Estimated 77 mL/min (50-200); Estimated Glomerular Filt Rate 42 ml/min (>60); GFR (African American) 51 ML/MIN (>60)
[2024-05-27 11:08] LABS: Anion Gap 8.3 mEq/L (5-15); Calcium 8.7 mg/dl (8.4-10.2); Carbon Dioxide 24 mmol/L (22.0-30.0); Glucose 103 mg/dl (74-100)
== END 2024-05-27 23:59 | disposition home or self-care (01) ==
LOC: PREOP 09:56
PROVIDERS: Nurse Anesthetist, Certified Registered; PCP Internal Medicine; Visit Provider Orthopaedic Surgery
DX: Z01.810 Encounter for preprocedural cardiovascular examination (principal); Z01.812 Encounter for preprocedural laboratory examination; I51.7 Cardiomegaly; R00.1 Bradycardia, unspecified; R94.31 Abnormal electrocardiogram [ECG] [EKG]
CPT/HCPCS: 80048; 85025; 93005

== ENCOUNTER 2024-06-06 05:58 | Day surgery (SDC) | payer MEDICAID, SELFPAY ==
[2024-05-27 10:26] VITALS: BMI 36.0
[2024-06-06] MEDS: LACTATED RINGERS 1000ML 1,000 ML 25 ML IV (06:24)
[2024-06-06 06:26] VITALS: BP 149/69; PULSE 61; RESP 18; TEMP 36.3; O2SAT 97
--- NOTE | 2024-06-06 06:56 | P.PNANES_ITS ---
[facility] Disclaimer: The information contained in this section may have been updated after the patient was seen, as this information can be updated by other users. Medical History Edema Vasomotor symptoms due to menopause Hirsutism Chronic RLQ pain pain occurs randomly about twice a week and lasts a few minutes Mixed stress and urge incontinence Fibromyalgia Palpitations GERD (gastroesophageal reflux disease) Depression Arrhythmia Anxiety Aneurysm Episodic migraine Migraines are being followed by [facility]. Patient states that since she has been receiving the injection she has not had any migraines at all and there the best they have ever been she states. Surgical History History of esophagogastroduodenoscopy (EGD) History of colonoscopy History of carpal tunnel release right Hx of oophorectomy left History of knee replacement left + knee scopes x5 History of cholecystectomy History of hysterectomy 2004 Family History Other Anemia Cancer Coronary artery disease Diabetes Hyperlipidemia Hypertension Stroke Thyroid disorder Social History Smoking Status: Never smoker second hand exposure: No alcohol intake: never substance use type: denies use current occupational status: unemployed Travel in the last 8 weeks: None household members: spouse housing: house marital status: education level: college service: No current occupational exposures/hazards: No caffeine: Yes special mari needs: No agree to transfusion: No do you feel safe at home: Yes victim of physical abuse: No victim of emotional abuse: No victim of sexual abuse: No would you like helpful sources: No [facility] Anesthesia Checklist Patient Identification Patient Identification: Arm Band and Other: Structural Data Admitted From: Home Planned Operative Procedure/s: Left CTR Consent for Planned Operative Procedure(s) Verified: Yes Verified Documents: Surgical Consent and History and Physical NPO Status Verified Time NPO: 00:00 Additional verifications Anesthesia Reactions: No Hx Blood Transfusions: No Blood Transfusion Reaction: No Cephalosporin Allergy: No Previous Colonoscopy: Yes Airway Assessment Mallampati Score:: Class II C-Spine Mobility Assessed: Yes TMJ Mobility Assessed: Yes Dentition: Dentures-good fit Neurological Assessment Level of Consciousness: Awake, Alert, Appropriate and Follows Commands Hx Seizures: No Numbness or tingling in extremities: No Anesthesia Plan Anesthesia Risk discussed: Yes ASA Class: II Anesthesia Type: MAC Preoperative Comments Pre-Operative Comments: Takes Metoprolol for PVCs. Third stage Renal Failure.
[2024-06-06] MEDS: CLINDAMYCIN PHOSPHATE/D5W 900 MG/50 ML PIGGYBACK 100 MG IV (07:35)
[2024-06-06] MEDS: LIDOCAINE 1% W/EPI 1:100,000 20ML VIAL 20 ML (07:40)
--- NOTE | 2024-06-06 07:59 | EXP.OP.NOTE ---
Date of procedure: 06/06/24 Pre-op Diagnosis:: Left carpal tunnel syndrome Post-op Diagnosis:: Same Procedure performed:: Left endoscopic carpal tunnel release Surgeon:: Eladio Milligan DO Scudding Inspector(s):: Evans WALLACE REPRESENTATIVE PERSONAL SERVICE:: Michael Flanagan Anesthesia: MAC and local Estimated blood loss (mL): 0 Operative findings:: See dictation Operative note:: Patient identified preoperatively. Left wrist marked with yes my initials. Transferred operative suite. Given sedation. Left upper extremity prepped and draped normal sterile fashion. Once prepped and draped final operative timeout performed to identify proper patient procedure and extremity. Everyone involved in the case agreed. There is no counter indications to beginning. Did receive preoperative antibiotics. Marking pen was used to make plan incision over the volar wrist. Esmarch was used to exsanguinate extremity. Pneumatic tourniquet inflated to 250 mmHg. Skin knife was used to incise through skin. Scissors were taken down to bluntly dissect identify the most proximal aspect of the transverse carpal ligament. Retractors were placed. The dilator from the [employer] endoscopic carpal tunnel tray was placed into the carpal tunnel followed by the larger dilator followed by the 4.0 mm sled. Camera was then placed into the sled into the carpal tunnel. Transverse carpal ligament clearly seen superiorly within the wound. Endoscopic probe was placed to identify the most distal aspect the transverse carpal ligament. Rasp was used to remove the soft tissue from the undersurface. And then the hook blade from the [employer] endoscopic carpal tunnel system was utilized to release the transverse carpal ligament in its entirety under direct visualization. Irrigation of the wound performed. Skin was closed subcuticular 4-0 Monocryl stitch followed by Steri-Strips and a sterile hand dressing. Patient waken from sedation taken recovery in stable condition. Condition: stable Disposition: PACU Complications:: None apparent
[2024-06-06 08:05] VITALS: BP 147/73; PULSE 73; RESP 18; TEMP 36.6; O2SAT 94
[2024-06-06 08:20] VITALS: BP 139/79; PULSE 72; RESP 18; O2SAT 95
[2024-06-06 08:35] VITALS: BP 131/74; PULSE 66; RESP 18; O2SAT 97
== END 2024-06-06 08:35 | disposition home or self-care (01) ==
PROVIDERS: PCP Internal Medicine; Visit Provider Orthopaedic Surgery
PROC: (CPT 64721; principal; 2024-06-06 07:30)
DX: G56.02 Carpal tunnel syndrome, left upper limb (principal)
CPT/HCPCS: 29848; 96374; J2250; J3010; J7120

== ENCOUNTER 2024-06-14 16:43 | Outpatient (CLI) | payer MEDICAID, SELFPAY ==
--- NOTE | 2024-06-14 16:43 | MM_ITS ---
PROCEDURE INFORMATION: Exam: MG Bilateral Screening 3D Mammography Exam date and time: 06/14/2024 4:33 PM Age: 59 years old Clinical indication: Screening examination TECHNIQUE: Imaging protocol: Bilateral Screening tomosynthesis and 2D mammography including computer-aided detection (CAD) when performed. COMPARISON: 1. MG MM DIG SCREENING MAMM BI W/CAD 06/04/2023 10:54 AM 2. MG MM DIG SCREENING MAMM BI W/CAD 06/02/2022 10:28 AM FINDINGS: MAMMOGRAPHY: Breast composition: There are scattered areas of fibroglandular density. Mass: None. Architectural distortion: None. Calcifications: No suspicious calcifications. Asymmetric density: None. Skin thickening: None. Axillary adenopathy: None. IMPRESSION: No mammographic evidence of malignancy. Annual screening is recommended unless otherwise clinically indicated. ASSESSMENT: BI-RADS Category 1: Negative.
== END 2024-06-14 23:59 | disposition home or self-care (01) ==
PROVIDERS: PCP Internal Medicine; Visit Provider Internal Medicine
DX: Z12.31 Encounter for screening mammogram for malignant neoplasm of breast (principal)
CPT/HCPCS: 77063; 77067

== ENCOUNTER 2024-07-25 07:56 | Outpatient (CLI) | payer MEDICAID, SELFPAY ==
--- NOTE | 2024-07-25 07:59 | MR_ITS ---
FINAL REPORT CLINICAL HISTORY: LBP. RIGHT LEG PAIN, NUMBNESS AND TINGLING COMPARISON: 04/08/2021 FINDINGS: Multiplanar MR imaging of the lumbar spine was performed without contrast. On the sagittal T2-weighted images, disc degeneration is seen at multiple levels. The vertebral alignment is normal. There is no evidence of fracture. There is a 7 mm mass in the T12 vertebral body which is stable and may represent atypical hemangioma or other mass, likely benign since this is stable. The conus has an unremarkable appearance. L1-2: There is no significant canal stenosis or neural foraminal narrowing. L2-3: Annular disc bulge and facet arthropathy. There is no significant canal stenosis or neural foraminal narrowing. L3-4: There is no significant canal stenosis or neural foraminal narrowing. L4-5: Annular disc bulge and facet arthropathy. Small right foraminal disc protrusion. Mild right neural foraminal narrowing. L5-S1: Annular disc bulge, facet arthropathy, and osteophytes. Mild bilateral neural foraminal narrowing. IMPRESSION: Multilevel degenerative disc disease and spondylosis as described. L4-5 disc protrusion. Reviewed, Interpreted and Dictated by Bry Servin III, MD Transcribed by Maya Cm Authenticated and . [facility]
--- NOTE | 2024-07-25 08:00 | MR_ITS ---
FINAL REPORT CLINICAL HISTORY: RADICULOPATHY/MIGRAINE. DIZZINESS. HX OF BRAIN LESIONS COMPARISON: 05/22/2023 FINDINGS: Multiplanar MR imaging of the brain was performed without contrast. There are numerous white matter signal abnormalities which have not significantly changed from the prior study. There is no evidence of intracranial hemorrhage or mass. No abnormal ventricular dilatation is identified. No abnormal extra-axial fluid collection is seen. No abnormality is seen on the diffusion weighted images. The posterior fossa and brainstem are unremarkable. Normal major vessel vascular flow voids are seen. IMPRESSION: Multiple foci of white matter signal abnormalities, not significantly changed, which may represent moderate to severe chronic ischemic/gliotic change, demyelination, or changes secondary to vasculitis. No acute intracranial abnormality. Reviewed, Interpreted and Dictated by Bry Servin III, MD Transcribed by Maya Cm Authenticated and [facility]
== END 2024-07-25 23:59 | disposition home or self-care (01) ==
LOC: RAD 07:56
PROVIDERS: PCP Internal Medicine; Visit Provider Physician Assistant Medical
DX: M54.16 Radiculopathy, lumbar region (principal); G43.719 Chronic migraine without aura, intractable, without status migrainosus
CPT/HCPCS: 70551; 72148

== ENCOUNTER 2024-09-01 09:56 | Outpatient (CLI) | payer MEDICAID, SELFPAY ==
--- NOTE | 2024-09-01 | US_ITS ---
FINAL REPORT CLINICAL HISTORY: .eval for synovitis FINDINGS: Targeted sonographic images of the left MCP joints, 1st through 5th digits were obtained. There is no obvious synovial thickening. Synovium measures less than 2 mm. Small joint effusions are identified, likely physiologic. IMPRESSION: No sonographic features to suggest synovitis Reviewed, Interpreted and Dictated by Kiya Brooks MD Transcribed by Gala Mackenzie Authenticated and [facility]
--- NOTE | 2024-09-01 | US_ITS ---
FINAL REPORT CLINICAL HISTORY: PAIN IN BOTH HANDS-- eval for synovitis FINDINGS: Targeted sonographic images of the right MCP joints, 1st through 5th digits were obtained. There is no obvious synovial thickening. Synovium measures less than 2 mm. Small joint effusions are identified, likely physiologic. IMPRESSION: No sonographic features of synovitis. Reviewed, Interpreted and Dictated by Kiya Brooks MD Transcribed by Gala Mackenzie Authenticated and [facility]
== END 2024-09-01 23:59 | disposition home or self-care (01) ==
LOC: RAD 09:57
PROVIDERS: PCP Internal Medicine; Visit Provider Nurse Practitioner Primary Care
DX: M06.09 Rheumatoid arthritis without rheumatoid factor, multiple sites (principal); M79.641 Pain in right hand; M79.642 Pain in left hand
CPT/HCPCS: 76882

== ENCOUNTER 2024-10-22 18:09 | Emergency (ER) | payer MEDICAID, SELFPAY ==
[2024-10-22 18:22] VITALS: BP 129/84; PULSE 76; RESP 18; TEMP 36.7; O2SAT 100; BMI 33.6
--- NOTE | 2024-10-22 18:43 | ED_ITS ---
Discharge Plan Disposition Patient Disposition: Home, Self-Care Condition: Good Chief Complaint: Upper Respiratory Infection Prescriptions Prescriptions: New dxivrkbtojjbyak-lqnzosmtb-WK [Bromfed DM] 2-30-10 mg/5 mL syrup 5 ml PO Q6H PRN (Reason: cough) Qty: 118 0RF No Action topiramate 25 mg tablet 25 mg PO DAILY simvastatin 40 mg tablet 80 mg PO DAILY 90 Days Qty: 180 4RF Rx Instructions: TAKE ONE TABLET BY MOUTH at bedtime duloxetine 30 mg capsule,delayed release(DR/EC) 30 mg PO BID Qty: 180 1RF Auvelity 45-105 mg tablet, IR and ER, biphasic 1 tab PO BID Qty: 180 1RF Gemtesa 75 mg tablet 75 mg PO DAILY Qty: 30 2RF oxycodone 5 mg tablet 5 mg PO Q6H PRN (Reason: pain) Qty: 90 0RF Xeljanz XR 11 mg tablet extended release 24 hr 11 mg PO DAILY tramadol 50 mg tablet 50 mg PO BID PRN (Reason: pain) Qty: 60 2RF estradiol [Climara] 0.05 mg/24 hr patch weekly 1 patch transdermal WEEKLY Qty: 4 11RF Ajovy Autoinjector 225 mg/1.5 mL auto-injector 225 mg SQ QMONTH Qty: 1.5 5RF Nurtec ODT 75 mg tablet,disintegrating See Rx Instructions .ROUTE .COMPLEX Qty: 8 6RF Dose Instruction: take 1 tab by mouth every other day for Episodic migraine, Max Daily Dose: 1 tab every other day. May repeat after 48 hrs if recurrent headaches. Rx Instructions: take 1 tab by mouth every other day for Episodic migraine, Max Daily Dose: 1 tab every other day. May repeat after 48 hrs if recurrent headaches. cholecalciferol (vitamin D3) 1,250 mcg (50,000 unit) capsule 1,250 mcg PO WEEKLY Qty: 14 1RF metoprolol succinate 100 mg tablet extended release 24 hr See Rx Instructions .ROUTE .COMPLEX Qty: 90 1RF Dose Instruction: take 1 tablet by mouth DAILY for blood pressure; Rx Instructions: take 1 tablet by mouth DAILY for blood pressure; pantoprazole 40 mg tablet,delayed release (DR/EC) See Rx Instructions .ROUTE .COMPLEX Qty: 90 1RF Dose Instruction: TAKE 1 TABLET BY MOUTH DAILY FOR GERD Rx Instructions: TAKE 1 TABLET BY MOUTH DAILY FOR GERD ropinirole 1 mg tablet See Rx Instructions .ROUTE .COMPLEX Qty: 90 1RF Dose Instruction: TAKE ONE TABLET BY MOUTH EVERY NIGHT AT BEDTIME. ADMINISTER 1-3 HOURS BEFORE BEDTIME Rx Instructions: TAKE ONE TABLET BY MOUTH EVERY NIGHT AT BEDTIME. ADMINISTER 1-3 HOURS BEFORE BEDTIME gabapentin 800 mg tablet See Rx Instructions .ROUTE .COMPLEX Qty: 90 0RF Dose Instruction: TAKE 1 TABLET BY MOUTH THREE TIMES A DAY FOR NERVE PAIN Rx Instructions: TAKE 1 TABLET BY MOUTH THREE TIMES A DAY FOR NERVE PAIN Referrals Follow up/Referrals: Brady Valentine DO [Primary Care Provider] - See instructions Activity Restrictions/Add. Instructions Additional Instructions/Restrictions: Stay well-hydrated. Stop taking Delsym or NyQuil if you are going to take the Bromfed. You are flu positive, try to isolate as best as possible until you are fever free for 24 hours. Please follow up with your primary care provider in 2-3 days. Please return to ED if your symptoms worsen, change in location, change in severity, new symptoms develop or if you become concerned for your health. Clinical Impressions Clinical Impression: Acute viral syndrome, Influenza A, Laryngitis Print Language Print Language: Kiswahili Discharge ED Provider: Mingo Reinoso Adult HPI General Chief complaint: Upper Respiratory Infection Stated complaint: fever,coughcongestion,SOA Time Seen by Provider: 10/22/24 18:40 Mode of Arrival: Ambulatory Source of Information: Patient Limitations: No Limitations Description of Symptoms (Recalled from ER Triage Doc. by RN): Patient presents reporting cough for a week. Denies seeking treatment prior to tonight. States she feels as if her chest in more congested and feels as if she is more short of air. Patient with diminished voice in triage. States this is a result of her cough. States her cough is occasionally productive. States the production is thick and green. History of Present Illness HPI narrative: Patient is a 59-year-old female with a history of fibromyalgia, RA, arthritis. She presents today due to concerns for cough and congestion. She reports that on Thursday, she began having some cough and congestion and it persisted throughout the week she had fevers for 3 days, but that is resolved. She now reports that she has a feeling of significant congestion in her chest and and has lost her voice and has been unable to cough up what she feels like she needs to. She denies any significant shortness of breath. Denies any chest pain. Denies any current fevers, did have some vomiting earlier in the week, but that is resolved. No diarrhea. She reports she can ambulate without any difficulties. Related Data Home Medications ?Medication ?Instructions ?Recorded ?Confirmed tofacitinib 11 mg tablet,extended 11 mg PO DAILY . 05/06/23 06/21/24 release 24 hr (Xeljanz XR) topiramate 25 mg tablet 25 mg PO DAILY 10/28/23 06/21/24 Previous Rx's ?Medication ?Instructions ?Recorded Ajovy Autoinjector 225 mg/1.5 mL 225 mg (1.5 mL) SQ QMONTH episodic 12/31/22 subcutaneous auto-injector migraine #1.5 mL (fremanezumab-vfrm) simvastatin 40 mg tablet 80 mg (2 x 40 mg) PO DAILY 12/21/23 Cholesterol 90 days #180 tabs tramadol 50 mg tablet 50 mg PO BID PRN pain #60 tabs 01/28/24 rimegepant 75 mg disintegrating See Rx Instructions .Route 02/09/24 tablet (Nurtec ODT) .COMPLEX #8 tabs Climara 0.05 mg/24 hr transdermal 1 patch transdermal WEEKLY #4 ea 05/18/24 patch (estradiol) oxycodone 5 mg tablet 5 mg PO Q6H PRN pain #90 tabs 06/21/24 vibegron 75 mg tablet (Gemtesa) 75 mg PO DAILY #30 tabs 06/21/24 cholecalciferol (vitamin D3) 1,250 1,250 mcg PO WEEKLY #14 caps 08/15/24 mcg (50,000 unit) capsule gabapentin 800 mg tablet See Rx Instructions .Route 08/15/24 .COMPLEX #90 tabs metoprolol succinate 100 mg See Rx Instructions .Route 08/15/24 tablet,extended release 24 hr .COMPLEX #90 tabs pantoprazole 40 mg tablet,delayed See Rx Instructions .Route 08/15/24 release .COMPLEX #90 tabs ropinirole 1 mg tablet See Rx Instructions .Route 08/15/24 .COMPLEX #90 tabs dextromethorphan IR 45 1 tab PO BID #180 ea 08/31/24 mg-bupropion ER 105 mg biphasic tablet (Auvelity) duloxetine 30 mg capsule,delayed 30 mg PO BID #180 caps 08/31/24 release nwpxqkuxrprbduz-fodzuyseiugmmhi-HJ 5 ml PO Q6H PRN cough #118 mL 10/22/24 2 mg-30 mg-10 mg/5 mL oral syrup (Bromfed DM) Allergies Allergy/AdvReac Type Severity Reaction Status Date / Time Penicillins Allergy Intermediate I-HIVES Verified 06/21/24 11:39 [facility] Disclaimer: The information contained in this section may have been updated after the patient was seen, as this information can be updated by other users. Medical History Edema Vasomotor symptoms due to menopause Hirsutism Chronic RLQ pain pain occurs randomly about twice a week and lasts a few minutes Mixed stress and urge incontinence She has tried and failed Oxybutynin and Myrbetriq Fibromyalgia Palpitations GERD (gastroesophageal reflux disease) Depression Arrhythmia Anxiety Aneurysm Episodic migraine Migraines are being followed by [facility] [place] [place]. Patient states that since she has been receiving the injection she has not had any migraines at all and there the best they have ever been she states. Surgical History History of esophagogastroduodenoscopy (EGD) History of colonoscopy History of carpal tunnel release right Hx of oophorectomy left History of knee replacement left + knee scopes x5 History of cholecystectomy History of hysterectomy 2004 Family History Other Anemia Cancer Coronary artery disease Diabetes Hyperlipidemia Hypertension Stroke Thyroid disorder Social History Smoking Status: Never smoker second hand exposure: No alcohol intake: never substance use type: denies use current occupational status: unemployed Travel in the last 8 weeks: None household members: spouse housing: house marital status: education level: college service: No current occupational exposures/hazards: No caffeine: Yes special mari needs: No agree to transfusion: No do you feel safe at home: Yes victim of physical abuse: No victim of emotional abuse: No victim of sexual abuse: No would you like helpful sources: No Have you lived/traveled outside [place] in past 30 days?: No Contact w/someone who lives/traveled outside US past 30 days?: No Exposure to someone with infectious disease in past 14 days?: No Do you have a fever (greater than 100.4 F or 38 C)?: Yes Have you tested positive for COVID-19: No Exposed to someone with COVID-19 in past 14 days?: No Do you have a sore throat?: Yes Do you have a cough?: Yes Do you have any weakness?: Yes Do you have any diarrhea?: No Are you experiencing any unusual bleeding?: No Do you have any muscle aches/pain?: Yes Do you have any abdominal pain?: No Are you experiencing loss of taste or smell?: No Other Medical History Have you received the Flu Vaccine for this season: No Have you received the Pneumonia Vaccine: Yes ROS Obtained: Yes All systems reviewed & no additional complaints except as documented Physical Exam General General appearance: alert and in no apparent distress Head Head exam: atraumatic and normocephalic Eye Eye exam: Present PERRL and EOMI ENT ENT exam: Present normal oropharynx Neck Neck exam: Present full ROM and trachea midline Chest Chest inspection: Present symmetric chest wall rise Respiratory Respiratory exam: Present normal lung sounds bilaterally; Absent stridor Cardiovascular Cardiovascular exam: Present regular rate and normal rhythm Abdominal Exam Abdominal exam: Present soft; Absent distention or tenderness Extremities Exam Extremities exam: Present full ROM Neurological Exam Neurological exam: Present alert and oriented X3 Psychiatric Psychiatric exam: Present normal mood Skin Skin exam: Present warm and dry Medical Decision Making Medical Records Screening: Per USPSTF and CDC recommendations, given the prevalence of disease in our region, it is our hospital?s policy to screen for HIV and viral Hepatitis for all patients aged 18 and over and those with ongoing risk factors. Pedro Inquiry Pt receiving controlled substance: No Vital Signs: 10/22/24 18:22 10/22/24 19:00 10/22/24 19:32 Temperature 98.0 F Temperature Source Oral Pulse Rate 68 79 Pulse Rate [Radial] 76 Respiratory Rate 18 Blood Pressure 126/74 117/66 Blood Pressure [R Arm] 129/84 Blood Pressure Mean [R Arm] 99 Blood Pressure Source [R Arm] Automatic Cuff 02 Sat by Pulse Oximetry 100 97 97 Oxygen Delivery Method Room Air 10/22/24 20:01 Temperature Temperature Source Pulse Rate 69 Pulse Rate [Radial] Respiratory Rate Blood Pressure 120/70 Blood Pressure [R Arm] Blood Pressure Mean [R Arm] Blood Pressure Source [R Arm] 02 Sat by Pulse Oximetry 95 Oxygen Delivery Method Lab Data Lab Results 10/22/24 18:34: SARS-CoV-2 (PCR) Not detected, Influenza A Untype (PCR) Detected A, Influenza Type B (PCR) Not detected Orders (Tests/Meds): ED MEDICATIONS Discontinued Medications Generic Name Dose Route Start Last Admin Trade Name Gen PRN Reason Stop Dose Admin Acetaminophen 1,000 mg 10/22/24 18:56 10/22/24 19:04 Acetaminophen 500mg Tab PO 10/22/24 18:57 1,000 mg ONCE ONE Administration Dexamethasone 10 mg 10/22/24 18:56 10/22/24 19:04 Dexamethasone 4mg Tablet PO 10/22/24 18:57 10 mg ONCE ONE Administration Ibuprofen 600 mg 10/22/24 18:56 10/22/24 19:04 Ibuprofen 600 Mg Tablet PO 10/22/24 18:57 600 mg ONCE ONE Administration ORDERS Category Date Time Status XR chest 2V Stat Exams 10/22/24 18:56 Completed Rapid PCR Covid and Flu A/B Stat Lab 10/22/24 18:34 Completed Medical Decision Narrative: In summary, this 59-year-old female presents to the emergency department today with cough, congestion. On initial evaluation patient is afebrile, hemodynamically stable and in no acute distress. On exam patient is warm and well-perfused. Lung sounds are clear to station bilaterally with no wheezing or rhonchi. Does have a scant expiratory wheeze when coughing. Has significant laryngitis. Has had a productive cough. Abdomen is soft and nontender. No lower extremity edema. Does not have a history of blood clots, nor takes any estrogen supplementations. Differential diagnosis includes but is not limited to pneumonia, viral syndrome, laryngitis, bronchitis. Based on these concerns, I ordered chest x-ray. I suspect that this is bronchitis and laryngitis, will obtain chest x-ray to rule out pneumonia. Patient is otherwise well-appearing and vitally stable, will discharge if x-ray negative. Given Bromfed for cough outpatient and has good follow-up with primary care doctor on Thursday Patient received Decadron, Tylenol, Motrin for treatment. XR personally interpreted demonstrates no acute intrathoracic process and this confirmed the radiologist final read.. On reassessment she reports improvement in her symptoms and is ambulatory about the emergency department tolerating oral intake. Has good follow-up with PCP. Strict precautions are given, all questions answered patient amenable plan and discharge at this time. Critical Care Critical Care Time Critical Care Time: No
--- NOTE | 2024-10-22 18:56 | XR_ITS ---
PROCEDURE INFORMATION: Exam: XR Chest Exam date and time: 10/22/2024 6:58 PM Age: 59 years old Clinical indication: Cough and shortness of breath; Additional info: Cough, SOB TECHNIQUE: Imaging protocol: Radiologic exam of the chest. Views: 2 views. COMPARISON: CT ANGIO CHEST PE PROTOCOL 03/11/2021 4:59 PM FINDINGS: Lungs: No evidence of acute pulmonary disease or infiltrates Pleural spaces: No large effusion or pneumothorax. Heart/Mediastinum: No evidence of mediastinal widening or cardiac silhouette enlargement; the mediastinum and heart appear within normal limits for contour and size. Bones/joints: No evidence of acute osseous abnormalities within the visualized portions of the thoracic spine and ribs. Osseous structures appear appropriate for patient age. IMPRESSION: No dense parenchymal consolidation, pleural effusion, or pneumothorax.
[2024-10-22 19:00] VITALS: BP 126/74; PULSE 68; O2SAT 97
[2024-10-22] MEDS: ACETAMINOPHEN 500MG TAB 1000 MG PO (19:04)
[2024-10-22] MEDS: DEXAMETHASONE 4MG TABLET 10 MG PO (19:04)
[2024-10-22] MEDS: IBUPROFEN 600 MG TABLET PO (19:04)
[2024-10-22 19:24] LABS: Coronavirus 19, PCR Not Detected (NotDetected); Influenza B, PCR Not Detected (NotDetected)
[2024-10-22 19:32] VITALS: BP 117/66; PULSE 79; O2SAT 97
--- NOTE | 2024-10-22 19:46 | PC.NURSE ---
Pt sitting up in bed. No needs voiced at this time.
[2024-10-22 20:01] VITALS: BP 120/70; PULSE 69; O2SAT 95
[2024-10-22 20:38] LABS: Influenza A, PCR Detected (NotDetected)
[2024-10-22 20:56] VITALS: BP 120/70; PULSE 69; RESP 18; TEMP 36.6; O2SAT 95
== END 2024-10-22 21:02 | disposition home or self-care (01) ==
PROVIDERS: Emergency Provider Emergency Medicine; PCP Internal Medicine
DX: J04.0 Acute laryngitis (principal); J10.1 Influenza due to other identified influenza virus with other respiratory manifestations; B34.9 Viral infection, unspecified; R05.9 Cough, unspecified; R06.02 Shortness of breath; R09.89 Other specified symptoms and signs involving the circulatory and respiratory systems; R50.9 Fever, unspecified
CPT/HCPCS: 71046; 87636; 99283; J8540

== ENCOUNTER 2024-10-24 18:16 | Emergency (ER) | payer MEDICAID, SELFPAY ==
[2024-10-24 18:31] VITALS: BP 100/54; PULSE 72; RESP 20; TEMP 36.8; O2SAT 100; BMI 33.2
--- NOTE | 2024-10-24 18:40 | ECG_ITS ---
APPROVED REPORT Exam: Resting ECG HR:77 bpm ECG Measurements Heart Rate 77 AXES MO 152 P 91 QRSd 102 QRS -7 QT 392 T 49 QTc 424 Conclusion SINUS RHYTHM VOLTAGE CRITERIA FOR LVH [MEETS CRITERIA IN ONE OF: R(aVL), S(V1), R(V5), R(V5/V6)+S(V1)] NONSPECIFIC T-WAVE ABNORMALITY ABNORMAL ECG No STEMI Electronically signed by : NITA VELASCO, 10/25/2024 07:00:34
--- NOTE | 2024-10-24 18:49 | ED_ITS ---
<Statement entered by Roc Maurice MD - 10/24/24 23:52> I was consulted by the LOREN, and we discussed the complexity of the problems being addressed. I approved the treatment and management plan for this patient's care in the emergency department, thus performing a substantive portion of the medical decision making. Roc Maurice MD Discharge Plan Disposition Patient Disposition: Home, Self-Care Condition: Good Prescriptions Prescriptions: New doxycycline hyclate 100 mg capsule 100 mg PO BID 10 Days Qty: 20 0RF prednisone 50 mg tablet 50 mg PO DAILY 5 Days Qty: 5 0RF No Action topiramate 25 mg tablet 25 mg PO DAILY simvastatin 40 mg tablet 80 mg PO DAILY 90 Days Qty: 180 4RF Rx Instructions: TAKE ONE TABLET BY MOUTH at bedtime duloxetine 30 mg capsule,delayed release(DR/EC) 30 mg PO BID Qty: 180 1RF Auvelity 45-105 mg tablet, IR and ER, biphasic 1 tab PO BID Qty: 180 1RF Gemtesa 75 mg tablet 75 mg PO DAILY Qty: 30 2RF oxycodone 5 mg tablet 5 mg PO Q6H PRN (Reason: pain) Qty: 90 0RF Xeljanz XR 11 mg tablet extended release 24 hr 11 mg PO DAILY tramadol 50 mg tablet 50 mg PO BID PRN (Reason: pain) Qty: 60 2RF estradiol [Climara] 0.05 mg/24 hr patch weekly 1 patch transdermal WEEKLY Qty: 4 11RF Ajovy Autoinjector 225 mg/1.5 mL auto-injector 225 mg SQ QMONTH Qty: 1.5 5RF Nurtec ODT 75 mg tablet,disintegrating See Rx Instructions .ROUTE .COMPLEX Qty: 8 6RF Dose Instruction: take 1 tab by mouth every other day for Episodic migraine, Max Daily Dose: 1 tab every other day. May repeat after 48 hrs if recurrent headaches. Rx Instructions: take 1 tab by mouth every other day for Episodic migraine, Max Daily Dose: 1 tab every other day. May repeat after 48 hrs if recurrent headaches. cholecalciferol (vitamin D3) 1,250 mcg (50,000 unit) capsule 1,250 mcg PO WEEKLY Qty: 14 1RF metoprolol succinate 100 mg tablet extended release 24 hr See Rx Instructions .ROUTE .COMPLEX Qty: 90 1RF Dose Instruction: take 1 tablet by mouth DAILY for blood pressure; Rx Instructions: take 1 tablet by mouth DAILY for blood pressure; pantoprazole 40 mg tablet,delayed release (DR/EC) See Rx Instructions .ROUTE .COMPLEX Qty: 90 1RF Dose Instruction: TAKE 1 TABLET BY MOUTH DAILY FOR GERD Rx Instructions: TAKE 1 TABLET BY MOUTH DAILY FOR GERD ropinirole 1 mg tablet See Rx Instructions .ROUTE .COMPLEX Qty: 90 1RF Dose Instruction: TAKE ONE TABLET BY MOUTH EVERY NIGHT AT BEDTIME. ADMINISTER 1-3 HOURS BEFORE BEDTIME Rx Instructions: TAKE ONE TABLET BY MOUTH EVERY NIGHT AT BEDTIME. ADMINISTER 1-3 HOURS BEFORE BEDTIME gabapentin 800 mg tablet See Rx Instructions .ROUTE .COMPLEX Qty: 90 0RF Dose Instruction: TAKE 1 TABLET BY MOUTH THREE TIMES A DAY FOR NERVE PAIN Rx Instructions: TAKE 1 TABLET BY MOUTH THREE TIMES A DAY FOR NERVE PAIN [id number] [Bromfed DM] 2-30-10 mg/5 mL syrup 5 ml PO Q6H PRN (Reason: cough) Qty: 118 0RF Referrals Follow up/Referrals: Brady Valentine DO [Primary Care Provider] - See instructions Activity Restrictions/Add. Instructions Additional Instructions/Restrictions: I have sent an antibiotic as well as a steroid into your pharmacy. You need to follow-up with your PCP within 48 hours for recheck of your potassium. If you have any worsening signs or symptoms return to the ER as needed Clinical Impressions Clinical Impression: Lower respiratory tract infection, Hypokalemia Print Language Print Language: Sami Discharge ED Provider: Roc Maurice General Adult HPI <WALTER Sims - Last Filed: 10/24/24 23:22> General Chief complaint: Upper Respiratory Infection Stated complaint: exp flu-SOA sore throat body aches Time Seen by Provider: 10/24/24 18:49 Mode of Arrival: Wheelchair Source of Information: Patient Limitations: No Limitations Description of Symptoms (Recalled from ER Triage Doc. by RN): Pt states she was seen here on thursday and was diagnosed with Flu A. She is coming in today for worsening cough and sore throat. Pt states she was prescribed medications but was unable to slat pickler the cough medication due to it being out of stock at the pharmacy. History of Present Illness HPI narrative: Patient presents for evaluation of increasing dyspnea. Patient was diagnosed 3 days ago with influenza A however she has had symptoms for approximately a week. Patient states that she is had increasing shortness of breath increasing coarse cough. Patient does not have a history of COPD or lung problems at baseline however she is on disease modifying medications for rheumatoid arthritis. She denies any chest pain chills hemoptysis hematochezia melena nausea vomiting diarrhea but reports that persistent nonproductive cough. Related Data Home Medications ?Medication ?Instructions ?Recorded ?Confirmed tofacitinib 11 mg tablet,extended 11 mg PO DAILY . 05/06/23 06/21/24 release 24 hr (Xeljanz XR) topiramate 25 mg tablet 25 mg PO DAILY 10/28/23 06/21/24 Previous Rx's ?Medication ?Instructions ?Recorded Ajovy Autoinjector 225 mg/1.5 mL 225 mg (1.5 mL) SQ QMONTH episodic 12/31/22 subcutaneous auto-injector migraine #1.5 mL (fremanezumab-vfrm) simvastatin 40 mg tablet 80 mg (2 x 40 mg) PO DAILY 12/21/23 Cholesterol 90 days #180 tabs tramadol 50 mg tablet 50 mg PO BID PRN pain #60 tabs 01/28/24 rimegepant 75 mg disintegrating See Rx Instructions .Route 02/09/24 tablet (Nurtec ODT) .COMPLEX #8 tabs Climara 0.05 mg/24 hr transdermal 1 patch transdermal WEEKLY #4 ea 05/18/24 patch (estradiol) oxycodone 5 mg tablet 5 mg PO Q6H PRN pain #90 tabs 06/21/24 vibegron 75 mg tablet (Gemtesa) 75 mg PO DAILY #30 tabs 06/21/24 cholecalciferol (vitamin D3) 1,250 1,250 mcg PO WEEKLY #14 caps 08/15/24 mcg (50,000 unit) capsule gabapentin 800 mg tablet See Rx Instructions .Route 08/15/24 .COMPLEX #90 tabs metoprolol succinate 100 mg See Rx Instructions .Route 08/15/24 tablet,extended release 24 hr .COMPLEX #90 tabs pantoprazole 40 mg tablet,delayed See Rx Instructions .Route 08/15/24 release .COMPLEX #90 tabs ropinirole 1 mg tablet See Rx Instructions .Route 08/15/24 .COMPLEX #90 tabs dextromethorphan IR 45 1 tab PO BID #180 ea 08/31/24 mg-bupropion ER 105 mg biphasic tablet (Auvelity) duloxetine 30 mg capsule,delayed 30 mg PO BID #180 caps 08/31/24 release [id number] 5 ml PO Q6H PRN cough #118 mL 10/22/24 2 mg-30 mg-10 mg/5 mL oral syrup (Bromfed DM) doxycycline hyclate 100 mg capsule 100 mg PO BID 10 days #20 caps 10/24/24 prednisone 50 mg tablet 50 mg PO DAILY 5 days #5 tabs 10/24/24 Allergies Allergy/AdvReac Type Severity Reaction Status Date / Time Penicillins Allergy Intermediate I-HIVES Verified 06/21/24 11:39 [facility] <WALTER Sims - Last Filed: 10/24/24 23:22> [facility] Disclaimer: The information contained in this section may have been updated after the patient was seen, as this information can be updated by other users. Medical History Edema Vasomotor symptoms due to menopause Hirsutism Chronic RLQ pain pain occurs randomly about twice a week and lasts a few minutes Mixed stress and urge incontinence She has tried and failed Oxybutynin and Myrbetriq Fibromyalgia Palpitations GERD (gastroesophageal reflux disease) Depression Arrhythmia Anxiety Aneurysm Episodic migraine Migraines are being followed by [facility]. Patient states that since she has been receiving the injection she has not had any migraines at all and there the best they have ever been she states. Surgical History History of esophagogastroduodenoscopy (EGD) History of colonoscopy History of carpal tunnel release right Hx of oophorectomy left History of knee replacement left + knee scopes x5 History of cholecystectomy History of hysterectomy 2004 Family History Other Anemia Cancer Coronary artery disease Diabetes Hyperlipidemia Hypertension Stroke Thyroid disorder Social History Smoking Status: Never smoker second hand exposure: No alcohol intake: never substance use type: denies use current occupational status: unemployed Travel in the last 8 weeks: None household members: spouse housing: house marital status: education level: college service: No current occupational exposures/hazards: No caffeine: Yes special mari needs: No agree to transfusion: No do you feel safe at home: Yes victim of physical abuse: No victim of emotional abuse: No victim of sexual abuse: No would you like helpful sources: No Have you lived/traveled outside [place] in past 30 days?: No Contact w/someone who lives/traveled outside [place] past 30 days?: No Exposure to someone with infectious disease in past 14 days?: No Do you have a fever (greater than 100.4 F or 38 C)?: No Have you tested positive for COVID-19: No Exposed to someone with COVID-19 in past 14 days?: No Do you have a sore throat?: Yes Do you have a cough?: No Do you have any weakness?: No Do you have any diarrhea?: No Are you experiencing any unusual bleeding?: No Do you have any muscle aches/pain?: Yes Do you have any abdominal pain?: No Are you experiencing loss of taste or smell?: No Other Medical History Have you received the Flu Vaccine for this season: No Have you received the Pneumonia Vaccine: Yes <WALTER Sims - Last Filed: 10/24/24 23:22> ROS Obtained: Yes Systems reviewed as appropriate & no additional complaints except as documented Physical Exam <WALTER Sims - Last Filed: 10/24/24 23:22> General General appearance: alert and in no apparent distress Respiratory Respiratory exam: Present normal lung sounds bilaterally Cardiovascular Cardiovascular exam: Present regular rate Neurological Exam Neurological exam: Present alert and oriented X3 Medical Decision Making <WALTER Sims - Last Filed: 10/24/24 23:22> Medical Records Medical records reviewed: Yes I reviewed the patient's medical records. Screening: Per USPSTF and CDC recommendations, given the prevalence of disease in our region, it is our hospital?s policy to screen for HIV and viral Hepatitis for all patients aged 18 and over and those with ongoing risk factors. Pedro Inquiry Pt receiving controlled substance: No Vital Signs: 10/24/24 18:31 10/24/24 19:01 10/24/24 19:30 Temperature 98.3 F Temperature Source Oral Pulse Rate 75 65 Pulse Rate [Right] 72 Respiratory Rate 20 12 13 Blood Pressure 97/68 L 126/63 Blood Pressure [Right Arm] 100/54 L Blood Pressure Mean [Right Arm] 69 Blood Pressure Source [Right Arm] Automatic Cuff Blood Pressure Position [Right Arm] Supine 02 Sat by Pulse Oximetry 100 97 99 Oxygen Delivery Method Room Air 10/24/24 20:02 10/24/24 20:43 Temperature 97 F L Temperature Source Pulse Rate 66 62 Pulse Rate [Right] Respiratory Rate 17 18 Blood Pressure 106/57 L 94/49 L Blood Pressure [Right Arm] Blood Pressure Mean [Right Arm] Blood Pressure Source [Right Arm] Blood Pressure Position [Right Arm] 02 Sat by Pulse Oximetry 97 Oxygen Delivery Method Room Air Room Air Lab Data Lab results reviewed: Yes I reviewed the patient's lab results. Lab Results 10/24/24 18:57: WBC 12.4 H, RBC 3.83 L, Hgb 11.6 L, Hct 34.8 L, MCV 90.9, MCH 30.3, MCHC 33.3, RDW 13.5, Plt Count 314, MPV 12.0 H, Neut % (Auto) 77.7, Lymph % (Auto) 9.6 L, Banks % (Auto) 10.8 H, Eos % (Auto) 0.6, Baso % (Auto) 0.2, Neut # (Auto) 9.6 H, Lymph # (Auto) 1.2, Banks # (Auto) 1.3 H, Eos # (Auto) 0.1, Baso # (Auto) 0.0, Sodium 137, Potassium 3.0 L, Chloride 100, Carbon Dioxide 27, Anion Gap 13.0, BUN 17, Creatinine 1.40 H, Estimated Creat Clear 66, Estimated GFR 38 L, Est GFR ( Amer) 47 L, Glucose 85, Calcium 9.1, Magnesium 1.6, Total Bilirubin 0.6, AST 152 H, ALT 93 H, Alkaline Phosphatase 93, Troponin I < 0.01, NT-Pro-B Natriuret Pep 846 H, Total Protein 7.4, Albumin 4.2, Globulin 3.2, Albumin/Globulin Ratio 1.3, Procalcitonin 0.073 10/24/24 18:57 10/24/24 18:57 Orders (Tests/Meds): ED MEDICATIONS Discontinued Medications Generic Name Dose Route Start Last Admin Trade Name Freq PRN Reason Stop Dose Admin Acetaminophen 1,000 mg 10/24/24 19:11 10/24/24 19:19 Acetaminophen 500mg Tab PO 10/24/24 19:12 1,000 mg ONCE ONE Administration Doxycycline Hyclate 100 mg 10/24/24 20:12 10/24/24 20:28 Doxycycline Hycl 100 Mg Tablet PO 10/24/24 20:13 100 mg ONCE ONE Administration Ibuprofen 800 mg 10/24/24 19:11 10/24/24 19:19 Ibuprofen 400 Mg Tablet PO 10/24/24 19:12 800 mg ONCE ONE Administration Potassium Chloride 60 meq 10/24/24 20:11 10/24/24 20:28 Potassium Chloride 20meq Tab PO 10/24/24 20:12 60 meq ONCE ONE Administration Prednisone 60 mg 10/24/24 20:12 10/24/24 20:28 Prednisone 20mg Tab PO 10/24/24 20:13 60 mg ONCE ONE Administration ORDERS Category Date Time Status Chest XR 2 view (NOT portable) [XR chest 2V] Stat Exams 10/24/24 19:12 Completed BNP [NT Pro Brain Natriuretic Pep.] Stat Lab 10/24/24 18:57 Completed CBC w/Auto Diff [Complete Blood Count Auto Diff] Stat Lab 10/24/24 18:57 Completed CMP [Comprehensive Metabolic Panel] Stat Lab 10/24/24 18:57 Completed Magnesium Stat Lab 10/24/24 18:57 Completed Procalcitonin Stat Lab 10/24/24 18:57 Completed Trop I [Troponin I] Stat Lab 10/24/24 18:57 Completed HEART Score History (anamnesis): Slightly suspicious ECG: Non-specific disturbance Age: 45-65 years Risk factors: 1-2 risk factors Troponin: </= normal limit HEART Score: 3 Medical Decision Narrative: In summary patient is a 59-year-old female who presents to the emergency department for evaluation of dyspnea and influenza A positive. Patient is initially presenting with a blood pressure 100/54 pulse 72 respiratory rate 20 temperature is 98.3 satting at 100% room air upon arrival. Physical exam is remarkable for clear breath sounds however patient has a coarse harsh bronchial cough, normal heart sounds no abdominal tenderness no rebound or guarding no rigidity. Differential diagnosis includes bronchitis versus superimposed bacterial infection. I did consider PE however patient is Wells criteria negative.. Initial workup will be conducted with hematologic labs plain film chest x-ray. Initial interventions include DuoNeb Decadron Tylenol Toradol. Initial workup reviewed by me shows patient has a white count of 12.4 with an absolute neutrophil count of 9.6 potassium 3.0 creatinine 1.4 troponin less than 0.01 and NT proBNP of 846 and a procalcitonin of 0.073. I have ordered oral repletion of her potassium prior to her discharge. My informal interpretation of her plain film chest x-ray shows no acute processes currently. Upon repeat evaluation significant improvement after initial intervention. Given this patient is appropriate for discharge with a prescription of doxycycline with first dose given here, a prescription for oral steroids and close follow-up with your PCP this week for recheck of her potassium and strict return precautions. <Roc Maurice MD - Last Filed: 10/24/24 19:38> Vital Signs: 10/24/24 18:31 10/24/24 19:01 10/24/24 19:30 Temperature 98.3 F Temperature Source Oral Pulse Rate 75 65 Pulse Rate [Right] 72 Respiratory Rate 20 12 13 Blood Pressure 97/68 L 126/63 Blood Pressure [Right Arm] 100/54 L Blood Pressure Mean [Right Arm] 69 Blood Pressure Source [Right Arm] Automatic Cuff Blood Pressure Position [Right Arm] Supine 02 Sat by Pulse Oximetry 100 97 99 Oxygen Delivery Method Room Air 10/24/24 20:02 10/24/24 20:43 Temperature 97 F L Temperature Source Pulse Rate 66 62 Pulse Rate [Right] Respiratory Rate 17 18 Blood Pressure 106/57 L 94/49 L Blood Pressure [Right Arm] Blood Pressure Mean [Right Arm] Blood Pressure Source [Right Arm] Blood Pressure Position [Right Arm] 02 Sat by Pulse Oximetry 97 Oxygen Delivery Method Room Air Room Air Lab Data Lab Results 10/24/24 18:57: WBC 12.4 H, RBC 3.83 L, Hgb 11.6 L, Hct 34.8 L, MCV 90.9, MCH 30.3, MCHC 33.3, RDW 13.5, Plt Count 314, MPV 12.0 H, Neut % (Auto) 77.7, Lymph % (Auto) 9.6 L, Banks % (Auto) 10.8 H, Eos % (Auto) 0.6, Baso % (Auto) 0.2, Neut # (Auto) 9.6 H, Lymph # (Auto) 1.2, Banks # (Auto) 1.3 H, Eos # (Auto) 0.1, Baso # (Auto) 0.0, Sodium 137, Potassium 3.0 L, Chloride 100, Carbon Dioxide 27, Anion Gap 13.0, BUN 17, Creatinine 1.40 H, Estimated Creat Clear 66, Estimated GFR 38 L, Est GFR ( Amer) 47 L, Glucose 85, Calcium 9.1, Magnesium 1.6, Total Bilirubin 0.6, AST 152 H, ALT 93 H, Alkaline Phosphatase 93, Troponin I < 0.01, NT-Pro-B Natriuret Pep 846 H, Total Protein 7.4, Albumin 4.2, Globulin 3.2, Albumin/Globulin Ratio 1.3, Procalcitonin 0.073 Orders (Tests/Meds): ED MEDICATIONS Discontinued Medications Generic Name Dose Route Start Last Admin Trade Name Freq PRN Reason Stop Dose Admin Acetaminophen 1,000 mg 10/24/24 19:11 10/24/24 19:19 Acetaminophen 500mg Tab PO 10/24/24 19:12 1,000 mg ONCE ONE Administration Doxycycline Hyclate 100 mg 10/24/24 20:12 10/24/24 20:28 Doxycycline Hycl 100 Mg Tablet PO 10/24/24 20:13 100 mg ONCE ONE Administration Ibuprofen 800 mg 10/24/24 19:11 10/24/24 19:19 Ibuprofen 400 Mg Tablet PO 10/24/24 19:12 800 mg ONCE ONE Administration Potassium Chloride 60 meq 10/24/24 20:11 10/24/24 20:28 Potassium Chloride 20meq Tab PO 10/24/24 20:12 60 meq ONCE ONE Administration Prednisone 60 mg 10/24/24 20:12 10/24/24 20:28 Prednisone 20mg Tab PO 10/24/24 20:13 60 mg ONCE ONE Administration ORDERS Category Date Time Status Chest XR 2 view (NOT portable) [XR chest 2V] Stat Exams 10/24/24 19:12 Completed BNP [NT Pro Brain Natriuretic Pep.] Stat Lab 10/24/24 18:57 Completed CBC w/Auto Diff [Complete Blood Count Auto Diff] Stat Lab 10/24/24 18:57 Completed CMP [Comprehensive Metabolic Panel] Stat Lab 02/10/25 18:57 Completed Magnesium Stat Lab 10/24/24 18:57 Completed Procalcitonin Stat Lab 10/24/24 18:57 Completed Trop I [Troponin I] Stat Lab 10/24/24 18:57 Completed ECG Data Tracing #1: Independently interpreted by me rate 77, rhythm is regular, axis is normal, no ST elevation in anatomical contiguous leads, QTc 424 Critical Care <WALTER Sims - Last Filed: 10/24/24 23:22> Critical Care Time Critical Care Time: Yes Attestation: On 10/24/24, the high probability of a clinically significant, sudden or life threatening deterioration of the following system(s) required my full and direct attention, intervention and personal management. The time I documented below is in addition to time spent performing reported procedures but includes the following listed in this critical care notation. Total Time Total Critical Care Time: 35
--- NOTE | 2024-10-24 18:56 | PC.NURSE ---
LISA WALLACE AT BEDSIDE
[2024-10-24 19:01] VITALS: BP 97/68; PULSE 75; RESP 12; O2SAT 97
--- NOTE | 2024-10-24 19:12 | XR_ITS ---
PROCEDURE INFORMATION: Exam: XR Chest Exam date and time: 10/24/2024 7:14 PM Age: 59 years old Clinical indication: Dyspnea; Additional info: Dyspnea, flu positive TECHNIQUE: Imaging protocol: Radiologic exam of the chest. Views: 2 views. COMPARISON: CR XR CHEST 2V 10/22/2024 6:58 PM FINDINGS: Lungs: Clear lungs. Pleural spaces: No pneumothorax. No sizable pleural effusion. Heart/Mediastinum: No cardiomegaly. Bones/joints: Unremarkable. IMPRESSION: Clear lungs.
[2024-10-24 19:18] LABS: Basophils % 0.2 % (0.1-2.0); Eosinophils # 0.1 K/mm3 (0.0-0.4); Eosinophils % 0.6 % (0.1-12.0); Hematocrit 34.8 % (37.0-47.0); Hemoglobin 11.6 g/dL (12.2-16.2); Lymphocytes # 1.2 K/mm3 (0.7-4.5); Lymphocytes % 9.6 % (10-50); Mean Corpuscular HGB Conc 33.3 g/dL (31.8-35.4); Mean Corpuscular Hemoglobin 30.3 pg (27.0-31.2); Mean Corpuscular Volume 90.9 fl (81-99); Monocytes # 1.3 K/mm3 (0.1-1.0); Monocytes % 10.8 % (1.7-9.3); Neutrophils # 9.6 K/mm3 (1.8-7.8); Neutrophils % 77.7 % (37.0-80.0); Platelet Count 314 K/mm3 (142-424); Red Blood Count 3.83 M/mm3 (4.20-5.40); Red Cell Distribution Width 13.5 % (11.5-17.5); White Blood Count 12.4 K/mm3 (4.8-10.8)
[2024-10-24] MEDS: ACETAMINOPHEN 500MG TAB 1000 MG PO (19:19)
[2024-10-24] MEDS: IBUPROFEN 400 MG TABLET 800 MG PO (19:19)
--- NOTE | 2024-10-24 19:24 | PC.NURSE ---
Pt to Xray via wheelchair
[2024-10-24 19:27] LABS: Albumin Level 4.2 g/dl (3.5-5.0); Chloride 100 mmol/L (98-107); Sodium 137 mmol/L (136-145)
[2024-10-24 19:30] VITALS: BP 126/63; PULSE 65; RESP 13; O2SAT 99
[2024-10-24 19:30] LABS: Alanine Aminotransferase 93 U/L (12-78); Albumin/Globulin Ratio 1.3 (1.1-1.8); Aspartate Amino Transferase 152 U/L (14-36); Blood Urea Nitrogen 17 mg/dl (7-17); Carbon Dioxide 27 mmol/L (22.0-30.0); Creatinine Clearance Estimated 66 mL/min (50-200); Estimated Glomerular Filt Rate 38 ml/min (>60); GFR (African American) 47 ML/MIN (>60); Globulin 3.2 g/dL (1.3-3.2); Total Protein,Serum 7.4 g/dl (6.3-8.2)
[2024-10-24 19:31] LABS: Alkaline Phosphatase 93 U/L (38-126); Bilirubin,Total 0.6 mg/dl (0.2-1.3); Calcium 9.1 mg/dl (8.4-10.2); Glucose 85 mg/dl (74-100); Magnesium 1.6 mg/dl (1.6-2.3)
[2024-10-24 19:39] LABS: NT Pro Brain Natriuretic Pep. 846 pg/mL (0-125)
[2024-10-24 19:42] LABS: Troponin I < 0.01 ng/ml (0.00-0.034)
[2024-10-24 20:02] VITALS: BP 106/57; PULSE 66; RESP 17; O2SAT 97
[2024-10-24] MEDS: DOXYCYCLINE HYCL 100 MG TABLET PO (20:28)
[2024-10-24] MEDS: predniSONE 20MG TAB 60 MG PO (20:28)
[2024-10-24] MEDS: POTASSIUM CHLORIDE 20MEQ TAB 60 MEQ PO (20:28)
[2024-10-24 20:29] LABS: Procalcitonin 0.073 ng/mL (0.0-2.0)
[2024-10-24 20:43] VITALS: BP 94/49; PULSE 62; RESP 18; TEMP 36.1; O2SAT 100
== END 2024-10-24 20:49 | disposition home or self-care (01) ==
PROVIDERS: Physician Assistant; Emergency Provider Emergency Medicine; PCP Internal Medicine
DX: E87.6 Hypokalemia (principal); J22 Unspecified acute lower respiratory infection; R06.02 Shortness of breath; R06.00 Dyspnea, unspecified; R05.9 Cough, unspecified; J02.9 Acute pharyngitis, unspecified; M79.10 Myalgia, unspecified site
CPT/HCPCS: 71046; 80053; 83735; 83880; 84145; 84484; 85025; 93005; 99291

== ENCOUNTER 2024-11-16 11:45 | Outpatient (CLI) | payer MEDICAID, SELFPAY ==
[2024-11-16 23:06] LABS: Albumin Level 4.3 g/dl (3.5-5.0); Chloride 107 mmol/L (98-107)
[2024-11-16 23:07] LABS: Potassium 4.4 mmoL/L (3.5-5.1); Sodium 140 mmol/L (136-145)
[2024-11-16 23:09] LABS: Alanine Aminotransferase 22 U/L (12-78); Anion Gap 13.4 mEq/L (5-15); Aspartate Amino Transferase 32 U/L (14-36); Blood Urea Nitrogen 15 mg/dl (7-17); Carbon Dioxide 24 mmol/L (22.0-30.0); Estimated Glomerular Filt Rate 46 ml/min (>60); GFR (African American) 56 ML/MIN (>60)
[2024-11-16 23:10] LABS: Albumin/Globulin Ratio 1.8 (1.1-1.8); Alkaline Phosphatase 93 U/L (38-126); Bilirubin,Total 0.6 mg/dl (0.2-1.3); Calcium 9.1 mg/dl (8.4-10.2); Globulin 2.4 g/dL (1.3-3.2); Glucose 63 mg/dl (74-100); Total Protein,Serum 6.7 g/dl (6.3-8.2)
[2024-11-16 23:27] LABS: C-Reactive Protein 8.8 mg/L (0-4)
== END 2024-11-16 23:59 | disposition home or self-care (01) ==
LOC: LAB.DROPOF 11-17 10:56
PROVIDERS: PCP Internal Medicine; Visit Provider Internal Medicine
DX: N18.31 Chronic kidney disease, stage 3a (principal); E87.6 Hypokalemia; B34.9 Viral infection, unspecified
CPT/HCPCS: 80053; 86140

== ENCOUNTER 2025-01-07 06:18 | Emergency (ER) | payer MEDICAID, SELFPAY ==
[2025-01-07] VITALS (10 sets, daily range): BP systolic 129–168; BP diastolic 72–87; PULSE 54–62; RESP 13–18; TEMP 36.7–36.8; O2SAT 95–99; BMI 33.8
--- NOTE | 2025-01-07 06:17 | ECG_ITS ---
APPROVED REPORT Exam: Resting ECG HR:58 bpm ECG Measurements Heart Rate 58 AXES NM 163 P 54 QRSd 86 QRS 0 QT 404 T 43 QTc 402 Conclusion SINUS BRADYCARDIA MODERATE VOLTAGE CRITERIA FOR LVH, CONSIDER NORMAL VARIANT [MEETS CRITERIA IN ONE OF: R(aVL), S(V1), R(V5), R(V5/V6)+S(V1)] BORDERLINE ECG UNCONFIRMED REPORT Electronically signed by : DAISY STRINGER, 01/09/2025 03:46:48
--- NOTE | 2025-01-07 06:24 | XR_ITS ---
PROCEDURE INFORMATION: Exam: XR Chest Exam date and time: 01/07/2025 6:40 AM Age: 59 years old Clinical indication: Pain; Chest pressure; Additional info: Cp when PT woke up this morning TECHNIQUE: Imaging protocol: Radiologic exam of the chest. Views: 1 view. COMPARISON: CR XR CHEST 2V 10/24/2024 7:14 PM FINDINGS: Lungs: Unremarkable lungs. Pleural spaces: No pleural effusion or pneumothorax. Heart/Mediastinum: Cardiomediastinal silhouette is normal. Calcification and unfolding of the aortic arch. Bones/joints: NA IMPRESSION: No active lung parenchymal lesion.
--- NOTE | 2025-01-07 06:26 | [facility].EDGENADL ---
Discharge Plan Disposition Patient Disposition: Home, Self-Care Prescriptions Prescriptions: No Action topiramate 25 mg tablet 25 mg PO DAILY simvastatin 40 mg tablet 80 mg PO DAILY 90 Days Qty: 180 4RF Rx Instructions: TAKE ONE TABLET BY MOUTH at bedtime duloxetine 30 mg capsule,delayed release(DR/EC) 30 mg PO BID Qty: 180 1RF Auvelity 45-105 mg tablet, IR and ER, biphasic 1 tab PO BID Qty: 180 1RF Xeljanz XR 11 mg tablet extended release 24 hr 11 mg PO DAILY tramadol 50 mg tablet 50 mg PO BID PRN (Reason: pain) Qty: 60 2RF estradiol [Climara] 0.05 mg/24 hr patch weekly 1 patch transdermal WEEKLY Qty: 4 11RF potassium chloride 10 mEq capsule, extended release 10 meq PO DAILY Qty: 14 0RF prednisone 10 mg tablets,dose pack See Rx Instructions PO PER PKG DIR Qty: 21 0RF Rx Instructions: PO PER PKG DIR Ajovy Autoinjector 225 mg/1.5 mL auto-injector 225 mg SQ QMONTH Qty: 1.5 5RF Nurtec ODT 75 mg tablet,disintegrating See Rx Instructions .ROUTE .COMPLEX Qty: 8 6RF Dose Instruction: take 1 tab by mouth every other day for Episodic migraine, Max Daily Dose: 1 tab every other day. May repeat after 48 hrs if recurrent headaches. Rx Instructions: take 1 tab by mouth every other day for Episodic migraine, Max Daily Dose: 1 tab every other day. May repeat after 48 hrs if recurrent headaches. cholecalciferol (vitamin D3) 1,250 mcg (50,000 unit) capsule 1,250 mcg PO WEEKLY Qty: 14 1RF metoprolol succinate 100 mg tablet extended release 24 hr See Rx Instructions .ROUTE .COMPLEX Qty: 90 1RF Dose Instruction: take 1 tablet by mouth DAILY for blood pressure; Rx Instructions: take 1 tablet by mouth DAILY for blood pressure; pantoprazole 40 mg tablet,delayed release (DR/EC) See Rx Instructions .ROUTE .COMPLEX Qty: 90 1RF Dose Instruction: TAKE 1 TABLET BY MOUTH DAILY FOR GERD Rx Instructions: TAKE 1 TABLET BY MOUTH DAILY FOR GERD ropinirole 1 mg tablet See Rx Instructions .ROUTE .COMPLEX Qty: 90 1RF Dose Instruction: TAKE ONE TABLET BY MOUTH EVERY NIGHT AT BEDTIME. ADMINISTER 1-3 HOURS BEFORE BEDTIME Rx Instructions: TAKE ONE TABLET BY MOUTH EVERY NIGHT AT BEDTIME. ADMINISTER 1-3 HOURS BEFORE BEDTIME gabapentin 800 mg tablet See Rx Instructions .ROUTE .COMPLEX Qty: 90 0RF Dose Instruction: TAKE 1 TABLET BY MOUTH THREE TIMES A DAY FOR NERVE PAIN Rx Instructions: TAKE 1 TABLET BY MOUTH THREE TIMES A DAY FOR NERVE PAIN Referrals Follow up/Referrals: Edinson Camara MD [Staff Physician] - See instructions Provider,MD Al [Primary Care Provider] - See instructions Activity Restrictions/Add. Instructions Additional Instructions/Restrictions: No evidence of an acute cardiopulmonary emergency please follow-up outpatient with our emergency communications officer Dr. Camara. Return with any significant worsening of your symptoms. Clinical Impressions Clinical Impression: Chest pain Print Language Print Language: Eritrean Discharge ED Provider: Jon Fuentes General Adult HPI <Jon Fuentes MD - Last Filed: 01/07/25 07:01> General Chief complaint: Chest Pain Stated complaint: Chest Pain Time Seen by Provider: 01/07/25 06:20 Mode of Arrival: Ambulatory Source of Information: Patient Description of Symptoms (Recalled from ER Triage Doc. by RN): Pt to ED with CP and left arm/neck pain staring around 0500 this morning. pt reports the pain has now resolved. Pt now c/o nausea and headache. History of Present Illness HPI narrative: 59-year-old female with history of fibromyalgia, connective tissue disorder, rheumatoid arthritis presents for chest pain arm pain headache nausea. She reports that she primarily had arm pain and some chest pain when she woke up this morning around 430. It now has morphed into headache and some nausea as well. Reports chest pain is improving/resolved. Reports she had an episode of chest pain like this about 3 days ago that was worse. Denies history of heart problems. Related Data Home Medications ?Medication ?Instructions ?Recorded ?Confirmed tofacitinib 11 mg tablet,extended 11 mg PO DAILY . 05/06/23 11/16/24 release 24 hr (Xeljanz XR) topiramate 25 mg tablet 25 mg PO DAILY 10/28/23 11/16/24 Previous Rx's ?Medication ?Instructions ?Recorded Ajovy Autoinjector 225 mg/1.5 mL 225 mg (1.5 mL) SQ QMONTH episodic 12/31/22 subcutaneous auto-injector migraine #1.5 mL (fremanezumab-vfrm) simvastatin 40 mg tablet 80 mg (2 x 40 mg) PO DAILY 12/21/23 Cholesterol 90 days #180 tabs tramadol 50 mg tablet 50 mg PO BID PRN pain #60 tabs 01/28/24 rimegepant 75 mg disintegrating See Rx Instructions .Route 02/09/24 tablet (Nurtec ODT) .COMPLEX #8 tabs Climara 0.05 mg/24 hr transdermal 1 patch transdermal WEEKLY #4 ea 05/18/24 patch (estradiol) cholecalciferol (vitamin D3) 1,250 1,250 mcg PO WEEKLY #14 caps 08/15/24 mcg (50,000 unit) capsule gabapentin 800 mg tablet See Rx Instructions .Route 08/15/24 .COMPLEX #90 tabs metoprolol succinate 100 mg See Rx Instructions .Route 08/15/24 tablet,extended release 24 hr .COMPLEX #90 tabs pantoprazole 40 mg tablet,delayed See Rx Instructions .Route 08/15/24 release .COMPLEX #90 tabs ropinirole 1 mg tablet See Rx Instructions .Route 08/15/24 .COMPLEX #90 tabs dextromethorphan IR 45 1 tab PO BID #180 ea 08/31/24 mg-bupropion ER 105 mg biphasic tablet (Auvelity) duloxetine 30 mg capsule,delayed 30 mg PO BID #180 caps 08/31/24 release potassium chloride 10 mEq 10 meq PO DAILY #14 caps 11/16/24 capsule,extended release prednisone 10 mg tablets in a dose See Rx Instructions PO PER PKG DIR 11/16/24 pack #21 tabs Allergies Allergy/AdvReac Type Severity Reaction Status Date / Time Penicillins Allergy Intermediate I-HIVES Verified 11/16/24 11:19 [facility] <Jon Fuentes MD - Last Filed: 01/07/25 07:01> [facility] Disclaimer: The information contained in this section may have been updated after the patient was seen, as this information can be updated by other users. Medical History Edema Vasomotor symptoms due to menopause Hirsutism Chronic RLQ pain pain occurs randomly about twice a week and lasts a few minutes Mixed stress and urge incontinence She has tried and failed Oxybutynin and Myrbetriq Fibromyalgia Palpitations GERD (gastroesophageal reflux disease) Depression Arrhythmia Anxiety Aneurysm Episodic migraine Migraines are being followed by [facility]. Patient states that since she has been receiving the injection she has not had any migraines at all and there the best they have ever been she states. Surgical History History of esophagogastroduodenoscopy (EGD) History of colonoscopy History of carpal tunnel release right Hx of oophorectomy left History of knee replacement left + knee scopes x5 History of cholecystectomy History of hysterectomy 2004 Family History Other Anemia Cancer Coronary artery disease Diabetes Hyperlipidemia Hypertension Stroke Thyroid disorder Social History Smoking Status: Never smoker second hand exposure: No alcohol intake: never substance use type: denies use current occupational status: unemployed Travel in the last 8 weeks: None household members: spouse housing: house marital status: education level: college service: No current occupational exposures/hazards: No caffeine: Yes special mari needs: No agree to transfusion: No do you feel safe at home: Yes victim of physical abuse: No victim of emotional abuse: No victim of sexual abuse: No would you like helpful sources: No Other Medical History Have you received the Flu Vaccine for this season: No Have you received the Pneumonia Vaccine: Yes <Jon Fuentes MD - Last Filed: 01/07/25 07:01> ROS Obtained: Yes All systems reviewed & no additional complaints except as documented Physical Exam <Jon Fuentes MD - Last Filed: 01/07/25 07:01> General General appearance: alert and in no apparent distress Head Head exam: atraumatic and normocephalic Eye Eye exam: Present normal appearance, PERRL and EOMI ENT ENT exam: Present normal oropharynx and normal external ear exam Neck Neck exam: Present normal inspection and full ROM Chest Chest inspection: Present normal inspection and symmetric chest wall rise; Absent tenderness Respiratory Respiratory exam: Present normal lung sounds bilaterally; Absent respiratory distress Cardiovascular Cardiovascular exam: Present regular rate and normal rhythm Abdominal Exam Abdominal exam: Present soft; Absent distention, tenderness or guarding Extremities Exam Extremities exam: Present normal inspection; Absent edema or joint swelling Back Exam Back exam: Present normal inspection; Absent tenderness Neurological Exam Neurological exam: Present alert and oriented X3; Absent motor sensory deficit Psychiatric Psychiatric exam: Present normal affect and normal mood Skin Skin exam: Present warm, dry and normal color Lymphatic Lymphatic Findings: no adenopathy Medical Decision Making <Jon Fuentes MD - Last Filed: 01/07/25 07:01> Medical Records Medical records reviewed: Yes I reviewed the patient's medical records. Screening: Per USPSTF and CDC recommendations, given the prevalence of disease in our region, it is our hospital?s policy to screen for HIV and viral Hepatitis for all patients aged 18 and over and those with ongoing risk factors. Pedro Inquiry Pt receiving controlled substance: No Pedro was queried for this patient: No Vital Signs: 01/07/25 06:19 01/07/25 06:22 01/07/25 06:30 Temperature 98.2 F 98.2 F Temperature Source Oral Pulse Rate 59 L 57 L Pulse Rate [Left Radial] 62 Respiratory Rate 18 18 13 Blood Pressure 168/84 H 147/87 H Blood Pressure [Right Arm] 168/84 H Blood Pressure Mean Blood Pressure Mean [Right Arm] 112 Blood Pressure Source [Right Arm] Automatic Cuff Blood Pressure Position [Right Arm] Sitting 02 Sat by Pulse Oximetry 99 99 98 Oxygen Delivery Method Room Air Room Air 01/07/25 07:00 01/07/25 07:30 01/07/25 08:00 Temperature Temperature Source Pulse Rate 55 L 59 L 56 L Pulse Rate [Left Radial] Respiratory Rate 13 16 17 Blood Pressure 152/74 H 154/86 H Blood Pressure [Right Arm] Blood Pressure Mean Blood Pressure Mean [Right Arm] Blood Pressure Source [Right Arm] Blood Pressure Position [Right Arm] 02 Sat by Pulse Oximetry 98 97 97 Oxygen Delivery Method Room Air Room Air Room Air 01/07/25 08:30 01/07/25 09:00 01/07/25 09:30 Temperature Temperature Source Pulse Rate 58 L 55 L 54 L Pulse Rate [Left Radial] Respiratory Rate 13 15 13 Blood Pressure 129/73 142/72 H 139/82 Blood Pressure [Right Arm] Blood Pressure Mean 96 Blood Pressure Mean [Right Arm] Blood Pressure Source [Right Arm] Blood Pressure Position [Right Arm] 02 Sat by Pulse Oximetry 95 99 97 Oxygen Delivery Method Lab Data Lab results reviewed: Yes I reviewed the patient's lab results. Lab Results 01/07/25 06:19: WBC 7.7, RBC 4.08 L, Hgb 12.5, Hct 38.8, MCV 95.1, MCH 30.6, MCHC 32.2, RDW 13.5, Plt Count 266, MPV 11.5 H, Neut % (Auto) 62.8, Lymph % (Auto) 23.3, Conway % (Auto) 9.2, Eos % (Auto) 3.4, Baso % (Auto) 1.0, Neut # (Auto) 4.8, Lymph # (Auto) 1.8, Conway # (Auto) 0.7, Eos # (Auto) 0.3, Baso # (Auto) 0.1, D-Dimer 0.63 H, Sodium 142, Potassium 4.3, Chloride 108 H, Carbon Dioxide 28, Anion Gap 10.3, BUN 16, Creatinine 1.20 H, Estimated Creat Clear 78, Estimated GFR 46 L, Est GFR ( Amer) 56 L, Glucose 100, Calcium 9.0, Total Bilirubin 0.5, AST 44 H, ALT 21, Alkaline Phosphatase 72, Troponin I < 0.01, Total Protein 7.1, Albumin 4.3, Globulin 2.8, Albumin/Globulin Ratio 1.5, HCV Ab JORDON w/Rflx PCR Qn Negative, HIV Ag/Ab Combo Qual Negative 01/07/25 09:16: Troponin I < 0.01 01/07/25 06:19 01/07/25 06:19 Orders (Tests/Meds): ED MEDICATIONS Discontinued Medications Generic Name Dose Route Start Last Admin Trade Name Gen PRN Reason Stop Dose Admin Acetaminophen 1,000 mg 01/07/25 06:24 01/07/25 06:31 Acetaminophen 500mg Tab PO 01/07/25 06:25 1,000 mg ONCE ONE Administration Aspirin 324 mg 01/07/25 06:24 01/07/25 06:31 Aspirin 81mg Chewable Tablet PO 01/07/25 06:25 324 mg ONCE ONE Administration Lactated Ringer's 1,000 mls @ 999 mls/hr 01/07/25 06:30 01/07/25 06:32 Lactated Ringer's 1000 Ml Bag IV 01/07/25 07:30 999 mls/hr .Q1H1M LORENA Administration Prochlorperazine Edisylate 10 mg 01/07/25 06:24 01/07/25 06:32 Prochlorperazine 10mg/2ml Vial IV 01/07/25 06:25 10 mg ONCE ONE Administration ORDERS Category Date Time Status CXR --portable [XR chest portable] Stat Exams 01/07/25 06:24 Completed CBC w/Auto Diff [Complete Blood Count Auto Diff] Stat Lab 01/07/25 06:19 Completed CMP [Comprehensive Metabolic Panel] Stat Lab 01/07/25 06:19 Completed D-Dimer Stat Lab 01/07/25 06:19 Completed HIV Combo Stat Lab 01/07/25 06:19 Completed Hepatitis C Ab Qual. W/ RFX Stat Lab 01/07/25 06:19 Completed Troponin I Q3H Lab 01/07/25 06:19 Completed Troponin I Q3H Lab 01/07/25 09:16 Completed ECG Data Tracing #1: I reviewed this ECG and interpreted as documented below: Sinus bradycardia with rate of 58, no significant ST elevation or depression, no T wave changes, no evidence of arrhythmia ECG initial impression date: 01/07/25 ECG initial impression time: 06:17 HEART Score History (anamnesis): Moderately suspicious ECG: Normal Age: 45-65 years Risk factors: 1-2 risk factors Troponin: </= normal limit HEART Score: 3 Medical Decision Narrative: 59-year-old female with history of rheumatoid arthritis, fibromyalgia, hypertension presents for arm pain, chest pain and headache upon wakening. Chest pain improved. History was obtained via interactive discussion with patient, chart review. On arrival, patient is [afebrile, hemodynamically stable, satting appropriately, alert, oriented x4, GCS 15], moving all extremities spontaneously. Full physical exam performed and significant for no significant physical exam abnormality Differential includes but is not limited to ACS, PE, esophageal pathology, pneumothorax, tension headache, migraine headache. Patient was given Tylenol, aspirin, Compazine, fluid bolus for symptomatic management and correction of underlying abnormalities. Workup initiated including CBC CMP EKG troponin D-dimer chest x-ray. On re-evaluation, patient [remains afebrile, HD stable.] Laboratory workup independently interpreted by me and significant for no significant leukocytosis, stable renal function, no significant electrolyte derangement. Negative initial troponin. D-dimer negative by years criteria. Imaging independently interpreted by me and significant for lungs bilaterally without focal opacity. See radiology read for full review of final results. Patient placed in ED observation status for serial troponins. Patient care handed off to oncoming physician. <Ekaterina Bass MD - Last Filed: 01/07/25 10:17> Vital Signs: 01/07/25 06:19 01/07/25 06:22 01/07/25 06:30 Temperature 98.2 F 98.2 F Temperature Source Oral Pulse Rate 59 L 57 L Pulse Rate [Left Radial] 62 Respiratory Rate 18 18 13 Blood Pressure 168/84 H 147/87 H Blood Pressure [Right Arm] 168/84 H Blood Pressure Mean Blood Pressure Mean [Right Arm] 112 Blood Pressure Source [Right Arm] Automatic Cuff Blood Pressure Position [Right Arm] Sitting 02 Sat by Pulse Oximetry 99 99 98 Oxygen Delivery Method Room Air Room Air 01/07/25 07:00 01/07/25 07:30 01/07/25 08:00 Temperature Temperature Source Pulse Rate 55 L 59 L 56 L Pulse Rate [Left Radial] Respiratory Rate 13 16 17 Blood Pressure 152/74 H 154/86 H Blood Pressure [Right Arm] Blood Pressure Mean Blood Pressure Mean [Right Arm] Blood Pressure Source [Right Arm] Blood Pressure Position [Right Arm] 02 Sat by Pulse Oximetry 98 97 97 Oxygen Delivery Method Room Air Room Air Room Air 01/07/25 08:30 01/07/25 09:00 01/07/25 09:30 Temperature Temperature Source Pulse Rate 58 L 55 L 54 L Pulse Rate [Left Radial] Respiratory Rate 13 15 13 Blood Pressure 129/73 142/72 H 139/82 Blood Pressure [Right Arm] Blood Pressure Mean 96 Blood Pressure Mean [Right Arm] Blood Pressure Source [Right Arm] Blood Pressure Position [Right Arm] 02 Sat by Pulse Oximetry 95 99 97 Oxygen Delivery Method Lab Data Lab Results 01/07/25 06:19: WBC 7.7, RBC 4.08 L, Hgb 12.5, Hct 38.8, MCV 95.1, MCH 30.6, MCHC 32.2, RDW 13.5, Plt Count 266, MPV 11.5 H, Neut % (Auto) 62.8, Lymph % (Auto) 23.3, Conway % (Auto) 9.2, Eos % (Auto) 3.4, Baso % (Auto) 1.0, Neut # (Auto) 4.8, Lymph # (Auto) 1.8, Conway # (Auto) 0.7, Eos # (Auto) 0.3, Baso # (Auto) 0.1, D-Dimer 0.63 H, Sodium 142, Potassium 4.3, Chloride 108 H, Carbon Dioxide 28, Anion Gap 10.3, BUN 16, Creatinine 1.20 H, Estimated Creat Clear 78, Estimated GFR 46 L, Est GFR ( Amer) 56 L, Glucose 100, Calcium 9.0, Total Bilirubin 0.5, AST 44 H, ALT 21, Alkaline Phosphatase 72, Troponin I < 0.01, Total Protein 7.1, Albumin 4.3, Globulin 2.8, Albumin/Globulin Ratio 1.5, HCV Ab JORDON w/Rflx PCR Qn Negative, HIV Ag/Ab Combo Qual Negative 01/07/25 09:16: Troponin I < 0.01 Orders (Tests/Meds): ED MEDICATIONS Discontinued Medications Generic Name Dose Route Start Last Admin Trade Name Freq PRN Reason Stop Dose Admin Acetaminophen 1,000 mg 01/07/25 06:24 01/07/25 06:31 Acetaminophen 500mg Tab PO 01/07/25 06:25 1,000 mg ONCE ONE Administration Aspirin 324 mg 01/07/25 06:24 01/07/25 06:31 Aspirin 81mg Chewable Tablet PO 01/07/25 06:25 324 mg ONCE ONE Administration Lactated Ringer's 1,000 mls @ 999 mls/hr 01/07/25 06:30 01/07/25 06:32 Lactated Ringer's 1000 Ml Bag IV 01/07/25 07:30 999 mls/hr .Q1H1M LORENA Administration Prochlorperazine Edisylate 10 mg 01/07/25 06:24 01/07/25 06:32 Prochlorperazine 10mg/2ml Vial IV 01/07/25 06:25 10 mg ONCE ONE Administration ORDERS Category Date Time Status CXR --portable [XR chest portable] Stat Exams 01/07/25 06:24 Completed CBC w/Auto Diff [Complete Blood Count Auto Diff] Stat Lab 01/07/25 06:19 Completed CMP [Comprehensive Metabolic Panel] Stat Lab 01/07/25 06:19 Completed D-Dimer Stat Lab 01/07/25 06:19 Completed HIV Combo Stat Lab 04/26/25 06:19 Completed Hepatitis C Ab Qual. W/ RFX Stat Lab 01/07/25 06:19 Completed Troponin I Q3H Lab 01/07/25 06:19 Completed Troponin I Q3H Lab 01/07/25 09:16 Completed HEART Score HEART Score: 3 Medical Decision Narrative: 59-year-old female with history of rheumatoid arthritis, fibromyalgia, hypertension presents for arm pain, chest pain and headache upon wakening. Chest pain improved. History was obtained via interactive discussion with patient, chart review. On arrival, patient is [afebrile, hemodynamically stable, satting appropriately, alert, oriented x4, GCS 15], moving all extremities spontaneously. Full physical exam performed and significant for no significant physical exam abnormality Differential includes but is not limited to ACS, PE, esophageal pathology, pneumothorax, tension headache, migraine headache. Patient was given Tylenol, aspirin, Compazine, fluid bolus for symptomatic management and correction of underlying abnormalities. Workup initiated including CBC CMP EKG troponin D-dimer chest x-ray. On re-evaluation, patient [remains afebrile, HD stable.] Laboratory workup independently interpreted by me and significant for no significant leukocytosis, stable renal function, no significant electrolyte derangement. Negative initial troponin. D-dimer negative by years criteria. Imaging independently interpreted by me and significant for lungs bilaterally without focal opacity. See radiology read for full review of final results. Patient placed in ED observation status for serial troponins. Patient care handed off to oncoming physician. Reassessment 10:[address] Bass I took over care from Dr. Fuentes and patient had serial negative troponins. She was sleeping comfortably on my reassessment did not have any ongoing chest pain. No evidence of an acute cardiopulmonary emergency patient was discharged in stable condition. She will follow-up with cardiology outpatient return with any worsening of her symptoms. Procedures <Jon Fuentes MD - Last Filed: 01/07/25 07:01> Risk/Benefits of Procedure(s) Were Explained: Yes Critical Care <Jon Fuentes MD - Last Filed: 01/07/25 07:01> Critical Care Time Critical Care Time: No
--- OUTSIDE RECORDS SUMMARY | 2025-01-07 06:28 | XMS_ITS | Clinical Summary ---
Author Organization [facility] , [facility] Address [address] [place] [address] Phone Care Team Providers Care Flash Oven Operator Name Role Phone Vesna SILVA, Nolan Flores Unavailable [phone] Aurea SILVA, Davon Lanier Unavailable [phone] Reason for Visit and Chief Complaint The Chief Complaint is: LEFT KNEE PAIN Problems Includes: Problems addressed during this encounter and other active Problems Current Visit Onset Date Resolved Date Provider Marina seay Status Joint Pain, Localized in the Knee 08/02/2018 Nolan Malagon MD Active Last Documented On 8 9:14AM ; [facility] Plan of Treatment Patient presents today complaining of 8-9 months of increasing left knee pain primarily in the guallpa. femoral revision was performed by Dr. Malagon January 2014. The knee has been great up until the last 8-9 months. pain is most notable with increased walking/standing, she cannot make it around the grocery store anymore. X-ray suspicious for tibial implant loosening. Today recommend painful joint workup consisting of knee aspiration, ESR/CRP and bone scan. Follow-up with Dr. Malagon in a few weeks for evaluation. The patient was specifically instructed to bring preop x-rays, postop x-rays and operative note from the [facility] pertaining to her last surgery. The left knee was prepped with 3 betadine swabs and an alcohol swab. 3cc 1% lidocaine plain was injected into the knee superficially. The knee was reprepped in the same fashion. An 18 gauge needle on 60cc syringe was then used to aspirate 9 cc of clear to bloody synovial fluid. 10 cc of Marcaine and Lidocaine mix were then injected through the same needle with good fill, patient tolerated procedure well. Hemostasis was obtained with a band-aid. - Last Documented On 08/04/2018 11:04AM ; [facility], [facility] Instructions to patient Instructions for patient Last Documented On 8 9:19AM ; [facility], [facility] Assessments Includes: Assessments from this encounter Findings Painful left TKA revision, suspected tibial loosening - Last Documented On 08/04/2018 11:04AM ; [facility], [facility] Instructions Includes: Instructions from this encounter Instructions to patient Instructions for patient Last Documented On 8 9:19AM ; [facility], [facility] Medical Equipment - Implanted Devices Includes: Current Devices No Medical Equipment Recorded Medications Includes: Medications discussed during this encounter and other current Medications Current Medications (continue as prescribed) Gabapentin 600MG Oral Tablet 07/27/2018 Provider: Davon Villar MD Diagnosis: Last Documented On 8 9:15AM By Janneth Bearden ; [facility], [facility] BuPROPion HCl 75MG Oral Tablet 07/23/2018 Provider: Davon Villar MD Diagnosis: Last Documented On 8 9:15AM By Janneth Bearden ; [facility], [facility] Metoprolol Tartrate 100MG Oral Tablet 07/19/2018 Pro vider: Diagnosis: Last Documented On 8 9:15AM By Janneth Bearden ; [facility], [facility] DULoxetine HCl 30MG Oral Capsule Delayed Release Parti cles 07/19/2018 Provider: Diagnosis: Last Documented On 8 9:15AM By Janneth Thornton [facility], [facility] Topiramate 100MG Oral Tablet 07/19/2018 Provider: Diagnosis: Last Documented On 8 9:15AM By Janneth Thornton [facility], [facility] Lisinopril 10MG Oral Tablet 07/16/2018 Provider: Davon Villar MD Diagnosis: Last Documented On 8 9:15AM By Janneth Bearden ; [facility], [facility] Calcium-Vitamin D3 [id number] Oral Tablet 07/16/20 18 Provider: Diagnosis: Last Documented On 8 9:16AM By Janneth Bearden ; [facility], [facility] Medications Administered Includes: Administered Medications from this encounter No Administered Medications Recorded Vital Signs Includes: Vital Signs from this encounter Vital Name 08/02/2018 09:17A Blood Pressure Sitting (mmHg) 106/65 Pulse Rate-Sitting (bpm) 60 Height (in) 67 Weight (lb) 198 Body Mass Index (kg/m2) 31.0 Body Surface Area (m2) 2.0 Note: SPS Last Documented: On 08/02/2018 9:19AM ; [facility], [facility] Results Includes: Results discussed during this encounter No Results Recorded For Specified Dates History of Present Illness Includes: History of Present Illness from this encounter LAVELLE Abdi is a 53 year old female. - Symptoms CATCHING. - Medication list reviewed with patient. - Previous history of gradual onset pain - Sharp pain Symptoms - Pain is constant (100% of the time) - Pain is dull, aching Please rate pain on scale of 1 - 10: 6 Medications used for this condition: Social History Description Last Updated Caffeine use 08/02/2018 Last Documented On 8 11:04AM ; [facility], [facility] No recent change in diet 08/02/2018 Last Documented On 8 11:04AM ; [facility], [facility] Not a current smoker 08/02/2018 Last Documented On 8 11:04AM ; [facility], [facility] Not exercising regularly 08/02/2018 Last Documented On 8 11:04AM ; [facility], [facility] Not using alcohol 08/02/2018 Last Documented On 8 11:04AM ; [facility], [facility] Not using drugs 08/02/2018 Last Documented On 8 11:04AM ; [facility] No tobacco use 08/02/2018 Last Documented On 8 11:04AM ; [facility] Smoking status : Never smoker 08/02/2018 Last Documented On 8 11:04AM ; [facility], [facility] Procedures and Surgical History Includes: Procedures from this encounter Procedures Code Diagnosis Performing Provider Service L ocation Service Date Clinical summary provided to patient Last Documented On 8 9:19AM ; [facility], [facility] Surgical History Last Updated History of hysterectomy 08/02/2018 Last Documented On 8 11:04AM ; [facility], [facility] Medical History Includes: Medical History addressed during this encounter Description Last Updated Arthritic joint problems 08/02/2018 Last Documented On 8 11:04AM ; [facility] Gallbladder disease 08/02/2018 Last Documented On 8 11:04AM ; [facility] History of depression 08/02/2018 Last Documented On 8 11:04AM ; [facility] Intermittent hypertension 08/02/2018 Last Documented On 8 11:04AM ; [facility] Family History Includes: Family History addressed during this encounter Description Last Updated Family history of diabetes mellitus FATH ER ~BROTHER ~DAUGHTER 08/02/2018 Last Documented On 8 11:04AM ; [facility] Family history of heart disease FATHER ~ SISTER 08/02/2018 Last Documented On 8 11:04AM ; [facility] Family history of thromboembolic disease DAUGHTER 08/02/2018 Last Documented On 8 11:04AM ; [facility] Family history of cancer BROTHER- LUNG ~ SISTER-BREAST ~SISTER-COLON 08/02/2018 Last Documented On 8 11:04AM ; [facility] Family history of hypertension 8 Last Documented On 8 11:04AM ; [facility] Family history of osteoporosis 8 Last Documented On 8 11:04AM ; [facility] Review of Systems Includes: Review of Systems from this encounter Systemic: Feeling tired (fatigue). No recent weight loss and no recent weight gain. No edema. Head: No headache, no sinus pain, and no sinus pain. Eyes: Vision problems. No vision problems and no glaucomatous visual field defect. Otolaryngeal: No hearing loss, no hearing loss, and no tinnitus. No nasal symptoms. Cardiovascular: No chest pain or discomfort, no chest pain or discomfort, and no palpitations. Pulmonary: No daytime asthma symptoms, no cough, and no chronic cough. No wheezing. Gastrointestinal: No heartburn, no heartburn, and no abdominal pain. Endocrine: No hot flashes. Muscle weakness. Hematologic: No easy bleeding and no tendency for easy bruising. Musculoskeletal: Lower back pain. No soft tissue swelling. Pain localized to one or more joints. Neurological: No dizziness, no convulsions, and no numbness. Psychological: Anxiety. No emotional lability. Depression. No insomnia. Not crying for no reason. Skin: No dry skin, no rash, and no ulcers. Allergic and Immunologic: No complaint of seasonal allergic reaction. Mental Status Includes: Mental Status from this encounter Description Anxiety Functional Status Includes: Functional Status from this encounter No Functional Status Recorded Physical Exam Includes: Physical Exam from this encounter Allergies Includes: Active Allergies No Known Allergies Encounters Encounter Provider Location Date Check-In Time Check-Out Time Diagnosis Physician Specified Nolan Malagon MD [facility] 08/02/20 18 8:49AM 10:07AM Insurance Includes: Active Insurance Policies Plan Name Member ID Group # Subscriber Relationship Effect jina Dates 1 - [employer] MEDICA[employer] [id number] Nargis Hernandez Clinical Notes Includes: Clinical Notes from this encounter No Clinical Notes Recorded
--- OUTSIDE RECORDS SUMMARY | 2025-01-07 06:28 | XMS_ITS | Clinical Summary ---
Author Organization [facility] , [facility] Address [address] [place] [address] Phone Care Team Providers Care Specimen Technician Name Role Phone Vesna SILVA, Nolan Flores Unavailable [phone] Aurea SILVA, Davon Lanier Unavailable [phone] Reason for Visit and Chief Complaint The Chief Complaint is: LEFT KNEE PAIN Problems Includes: Problems addressed during this encounter and other active Problems All Visits Onset Date Resolved Date Provider Condition S tatus Joint Pain, Localized in the Knee 08/02/2018 Nolan Malagon MD Active Last Documented On 8 9:14AM ; [facility], [facility] Plan of Treatment The [left] knee was prepped with 3 betadine swabs and an alcohol swab. 3cc 1% lidocaine plain was injected into the knee superficially. The knee was reprepped in the same fashion. An 18 gauge needle on 60cc syringe was then used to aspirate [16] cc of [blood-tinged] synovial fluid, patient tolerated procedure well. Hemostasis was obtained with a band-aid. Fluid for cell count with diff and synovasure. follow up as scheduled - Last Documented On 08/18/2018 11:19AM ; [facility], [facility] Instructions to patient Instructions for patient to see pcp for bp Last Documented On 8 10:49AM ; [facility] Assessments Includes: Assessments from this encounter Findings Left TKA with pain with recent aspiration demonstrated P acnes on culture - Last Documented On 08/18/2018 11:19AM ; [facility] Instructions Includes: Instructions from this encounter Instructions to patient Instructions for patient to see pcp for bp Last Documented On 8 10:49AM ; [facility], [facility] Medical Equipment - Implanted Devices Includes: Current Devices No Medical Equipment Recorded Medications Includes: Medications discussed during this encounter and other current Medications Current Medications (continue as prescribed) Gabapentin 600MG Oral Tablet 07/27/2018 Provider: Davon Villar MD Diagnosis: Last Documented On 8 9:15AM By Janneth Bearden ; [facility], [facility] BuPROPion HCl 75MG Oral Tablet 07/23/2018 Provider: Davon Villar MD Diagnosis: Last Documented On 8 9:15AM By Janneth Bearden ; [facility], [facility] Metoprolol Tartrate 100MG Oral Tablet 07/19/2018 Pro vider: Diagnosis: Last Documented On 8 9:15AM By Janneth Bearden ; [facility], [facility] DULoxetine HCl 30MG Oral Capsule Delayed Release Parti cles 07/19/2018 Provider: Diagnosis: Last Documented On 8 9:15AM By Janneth Bearden ; [facility], [facility] Topiramate 100MG Oral Tablet 07/19/2018 Provider: Diagnosis: Last Documented On 8 9:15AM By Janneth Bearden ; [facility] Lisinopril 10MG Oral Tablet 07/16/2018 Provider: Davon Villar MD Diagnosis: Last Documented On 8 9:15AM By Janneth Bearden ; [facility] Calcium-Vitamin D3 [id number] Oral Tablet 07/16/20 18 Provider: Diagnosis: Last Documented On 8 9:16AM By Janneth Bearden ; [facility] Medications Administered Includes: Administered Medications from this encounter No Administered Medications Recorded Vital Signs Includes: Vital Signs from this encounter Vital Name 08/18/2018 10:49A Blood Pressure Sitting (mmHg) 137/76 Pulse Rate-Sitting (bpm) 80 Height (in) 67 Weight (lb) 198 Body Mass Index (kg/m2) 31.0 Body Surface Area (m2) 2.0 Note: rj Last Documented: On 08/18/2018 10:49A M ; [facility], [facility] Results Includes: Results discussed during this encounter No Results Recorded For Specified Dates History of Present Illness Includes: History of Present Illness from this encounter LAVELLE Abdi is a 53 year old female. - Medication list reviewed with patient. Social History Description Last Updated Caffeine use 08/02/2018 Last Documented On 8 10:45AM ; [facility] No recent change in diet 08/02/2018 Last Documented On 8 10:45AM ; [facility] Not a current smoker 08/02/2018 Last Documented On 8 10:45AM ; [facility] Not exercising regularly 08/02/2018 Last Documented On 8 10:45AM ; [facility] Not using alcohol 08/02/2018 Last Documented On 8 10:45AM ; [facility] Not using drugs 08/02/2018 Last Documented On 8 10:45AM ; [facility] No tobacco use 08/02/2018 Last Documented On 8 10:45AM ; [facility] Smoking status : Never smoker 08/02/2018 Last Documented On 8 10:45AM ; [facility] Procedures and Surgical History Includes: Procedures from this encounter Procedures Code Diagnosis Performing Provider Service L ocation Service Date Clinical summary provided to patient Last Documented On 8 10:45AM ; [facility], [facility] Surgical History Last Updated History of hysterectomy 08/02/2018 Last Documented On 8 10:45AM ; [facility] Medical History Includes: Medical History addressed during this encounter Description Last Updated Arthritic joint problems 08/02/2018 Last Documented On 8 10:45AM ; [facility] Gallbladder disease 08/02/2018 Last Documented On 8 10:45AM ; [facility] History of depression 08/02/2018 Last Documented On 8 10:45AM ; [facility] Intermittent hypertension 08/02/2018 Last Documented On 8 10:45AM ; [facility] Family History Includes: Family History addressed during this encounter Description Last Updated Family history of diabetes mellitus FATH ER ~BROTHER ~DAUGHTER 08/02/2018 Last Documented On 8 10:45AM ; [facility] Family history of heart disease FATHER ~ SISTER 08/02/2018 Last Documented On 8 10:45AM ; [facility] Family history of thromboembolic disease DAUGHTER 08/02/2018 Last Documented On 8 10:45AM ; [facility] Family history of cancer BROTHER- LUNG ~ SISTER-BREAST ~SISTER-COLON 08/02/2018 Last Documented On 8 10:45AM ; [facility] Family history of hypertension 8 Last Documented On 8 10:45AM ; [facility] Family history of osteoporosis 8 Last Documented On 8 10:45AM ; [facility] Review of Systems Includes: Review of Systems from this encounter Systemic: Feeling tired (fatigue). No recent weight loss and no recent weight gain. No edema. Head: No headache and no sinus pain. Eyes: Vision problems. No vision problems and no glaucomatous visual field defect. Otolaryngeal: No hearing loss and no tinnitus. No nasal symptoms. Cardiovascular: No chest pain or discomfort and no palpitations. Pulmonary: No daytime asthma symptoms, no cough, and no chronic cough. No wheezing. Gastrointestinal: No heartburn and no abdominal pain. Endocrine: No hot [...] Location Date Check-In Time Check-Out Time Diagnosis INJECTION Nolan Malagon MD [facility] 08/18/20 18 10:21AM 11:19AM Insurance Includes: Active Insurance Policies Plan Name Member ID Group # Subscriber Relationship Effect jina Dates 1 - [employer] MED[employer] [id number] Nargis Yolande Trinidad Self Clinical Notes Includes: Clinical Notes from this encounter No Clinical Notes Recorded
--- OUTSIDE RECORDS SUMMARY | 2025-01-07 06:28 | XMS_ITS ---
Care Plan - [facility], [facility] Created on: January 07, 2025 Nargis Abdi : 1965 Sex: Female Author Organization [facility] , [facility] Address [address] [place] [address] Phone Care Team Providers Care Ward Supervisor Name Role Phone Vesna SILVA, Nolan Flores Unavailable [phone] Aurea SILVA, Davon Lanier Unavailable [phone]
--- OUTSIDE RECORDS SUMMARY | 2025-01-07 06:28 | XMS_ITS ---
Author Organization [facility] , [facility] Address [address] [place] [address] Phone Care Team Providers Care Electrologist Name Role Phone Vesna SILVA, Nolan Flores Unavailable [phone] Aurea SILVA, Davon Lanier Unavailable [phone] Problems Includes: Active, inactive, and resolved Problems All Visits Onset Date Resolved Date Provider Condition S tatus Joint Pain, Localized in the Knee 08/02/2018 Nolan Malagon MD Active Last Documented On 8 9:14AM ; [facility] Plan of Treatment Instructions to patient Instructions for patient Last Documented On 8 3:46PM ; [facility], [facility] Instructions for patient to see pcp for bp Last Documented On 8 10:49AM ; [facility], [facility] Instructions for patient Last Documented On 8 9:19AM ; [facility], [facility] Assessments Includes: Assessments for all patient encounters No Assessments Recorded Instructions Includes: Instructions for all patient encounters Instructions to patient Instructions for patient Last Documented On 8 3:46PM ; [facility], [facility] Instructions for patient to see pcp for bp Last Documented On 8 10:49AM ; [facility], [facility] Instructions for patient Last Documented On 8 9:19AM ; [facility], [facility] Medical Equipment - Implanted Devices Includes: Current and historical Devices No Medical Equipment Recorded Medications Includes: Current and historical Medications Current Medications (continue as prescribed) Gabapentin 600MG Oral Tablet 07/27/2018 Provider: Davon Villar MD Diagnosis: Last Documented On 8 9:15AM By Janneth Bearden ; [facility] BuPROPion HCl 75MG Oral Tablet 07/23/2018 Provider: Davon Villar MD Diagnosis: Last Documented On 8 9:15AM By Janneth Bearden ; [facility] Metoprolol Tartrate 100MG Oral Tablet 07/19/2018 Pro vider: Diagnosis: Last Documented On 8 9:15AM By Janneth Bearden ; [facility] DULoxetine HCl 30MG Oral Capsule Delayed Release Parti cles 07/19/2018 Provider: Diagnosis: Last Documented On 8 9:15AM By Janneth Bearden ; [facility] Topiramate 100MG Oral Tablet 07/19/2018 Provider: Diagnosis: Last Documented On 8 9:15AM By Janneth Bearden ; [facility] Lisinopril 10MG Oral Tablet 07/16/2018 Provider: Davon Villar MD Diagnosis: Last Documented On 8 9:15AM By Janneth Bearden ; [facility] Calcium-Vitamin D3 [id number] Oral Tablet 07/16/20 18 Provider: Diagnosis: Last Documented On 8 9:16AM By Janneth Bearden ; [facility], [facility] Medications Administered Includes: Administered Medications in patient's chart No Administered Medications Recorded Results Includes: Results from 01/08/2024 through 01/07/2025 No Results Recorded For Specified Dates History of Present Illness History of Present Illness not supported for this document type No History of Present Illness Recorded Social History Description Last Updated Caffeine use 08/02/2018 Last Documented On 8 11:04AM ; [facility], [facility] No recent change in diet 08/02/2018 Last Documented On 8 11:04AM ; [facility] Not a current smoker 08/02/2018 Last Documented On 8 11:04AM ; [facility] Not exercising regularly 08/02/2018 Last Documented On 8 11:04AM ; [facility] Not using alcohol 08/02/2018 Last Documented On 8 11:04AM ; [facility] Not using drugs 08/02/2018 Last Documented On 8 11:04AM ; [facility], [facility] No tobacco use 08/02/2018 Last Documented On 8 11:04AM ; [facility], [facility] Smoking status : Never smoker 08/02/2018 Last Documented On 8 11:04AM ; [facility], [facility] Procedures and Surgical History Surgical History Last Updated History of hysterectomy 08/02/2018 Last Documented On 8 11:04AM ; [facility], [facility] Medical History Includes: Medical History in patient's chart Description Last Updated Arthritic joint problems 08/02/2018 Last Documented On 8 11:04AM ; [facility] Gallbladder disease 08/02/2018 Last Documented On 8 11:04AM ; [facility], [facility] History of depression 08/02/2018 Last Documented On 8 11:04AM ; [facility], [facility] Intermittent hypertension 08/02/2018 Last Documented On 8 11:04AM ; [facility], [facility] Family History Includes: Family History in patient's chart Description Last Updated Family history of diabetes mellitus FATH ER ~BROTHER ~DAUGHTER 08/02/2018 Last Documented On 8 11:04AM ; [facility], [facility] Family history of heart disease FATHER ~ SISTER 08/02/2018 Last Documented On 8 11:04AM ; [facility], [facility] Family history of thromboembolic disease DAUGHTER 08/02/2018 Last Documented On 8 11:04AM ; [facility], [facility] Family history of cancer BROTHER- LUNG ~ SISTER-BREAST ~SISTER-COLON 08/02/2018 Last Documented On 8 11:04AM ; [facility], [facility] Family history of hypertension 8 Last Documented On 8 11:04AM ; [facility], [facility] Family history of osteoporosis 8 Last Documented On 8 11:04AM ; [facility], [facility] Review of Systems Review of Systems not supported for this document type No Review of Systems Recorded Mental Status Description Anxiety Functional Status No Functional Status Recorded Physical Exam Physical Exam not supported for this document type No Physical Exam Recorded Allergies Includes: Active, inactive, and resolved Allergies No Known Allergies Insurance Includes: Active Insurance Policies Plan Name Member ID Group # Subscriber Relationship Effect jina Dates 1 - [employer] [id number] Nargis Hernandez Clinical Notes Includes: Signed Clinical Notes starting from 08/28/2022 No Clinical Notes Recorded
--- OUTSIDE RECORDS SUMMARY | 2025-01-07 06:28 | XMS_ITS | Data Portability ---
Author Organization [facility] Address [address] [facility] [address] [place] [address] Care Team Providers Care Pulp Bleacher Name Role Phone SHAWNEESTEVENSONLARISA Referring Provider Assessment Encounter Date Assessment Date Assessment LastModified by Organization Details LastModified Time 07/24/2021 07/24/2021 A 56 year old female [email or web address] Not available 07/24/2021 14:30:43 Plan of Treatment Reminders Order Date Submit Date Provider Last Modified By Organization Details Last Modified Time Details Appointments None recorded. Lab CK (creatine kinase), total, serum [address] [facility], [address] [place] [address], [id number], 17:08:21 vitamin B12 + folate, serum or blood [address] [facility], [address] [place] [address], [id number], 17:21:21 magnesium, QN, serum or plasma [address] [facility], [address] [place] [address], [id number], 17:08:22 vitamin D, 25-hydroxy, total, serum [address] [facility], [address] [place] [address], [id number], 17:21:23 CINDI (antinuclea r antibodies) panel, serum [address] [facility], [address] [place] [address], [id number], 01:40:40 ccp (cyclic citrullinat ed peptide) iga+igg, serum [address] [facility], [address] [place] [address], [id number], 03:00:12 C reactive protein, QN, serum or plasma [address] [facility], [address] [place] [address], [id number], 17:08:19 ESR (erythrocyt e sedimentati on rate), blood 2020 [facility], [address] [place] [address], [id number], 16:50:33 rf (rheumatoid factor), serum [address] [facility], [address] [place] [address], [id number], 17:08:20 hepatitis (A+B+C) panel, serum [address] [facility], [address] [place] [address], [id number], 17:15:11 TSH, serum or plasma [address] [facility], [address] [place] [address], [id number], 17:14:09 Referral None recorded. Procedures None recorded. Surgeries None recorded. Imaging XR, sacroiliac joint(s), 3 or more view 2020 [email or web address], [address] [place], [address], 14:09:26 XR, wrist + hand [address] [facility], [address] [place] [address], [id number], 09:05:12 XR, ankle + foot [address] [facility], [address] [place] [address], [id number], 09:05:13 Medication Orders None recorded. Patient TargetsNo targets recorded. Patient Instructions Encounter Date Encounter Id Patient Instructions Last Modified By Organization Details Last Modified Time 07/24/2021 [id number] Thank you for th e trust and confidence you have in the care that I provided for your patients. Please let me know if you have any further questions or concerns. Kyle Pereira MD, CCD, FACP [email or web address] Not available 07/24/2021 14:30:48 Reason for Referral None Reported. Results Created Date Observation Date Name Description Value Unit Range Abnormal Flag Note LastModifiedBy Organization Detail LastModifiedTime 07/24/2007/24/2021 ESR, AUTOM ATED ESR, automated 37 mm 0-29 high Not Available [facility] [address] [place] [address], [id number], 07/24/2021 16:50:33 07/24/2007/24/2021 C REACT DILEEP PROTE IN C reactive protein 0.54 mg/dL 0.00-0 .49 high Not Available [facility] [address] [place] [address], [id number], 07/24/2021 17:08:19 07/24/20 21 07/24/2021 RF SCREE N, QUANT . rf screen, quant. 11.0 IU/mL 0.0-13 .9 normal Not Available [facility] [address] [place] [address], [id number], 07/24/2021 17:08:20 07/24/20 21 07/24/2021 CREAT INE KINAS E creatine kinase 50 U/L 0-169 normal Not Available [facility] [address] [place] [address], [id number], 07/24/2021 17:08:21 07/24/20 21 07/24/2021 MAGNE SIUM magnesium 2.1 mg/dL 1.6-2. 6 normal Not Available [facility] [address] [place] [address], [id number], 07/24/2021 17:08:22 07/24/20 21 07/24/2021 TSH TSH 2.260 uIU/m L 0.270- 4.200 normal Not Available [facility] [address] [place] [address], [id number], 07/24/2021 17:14:09 07/24/20 21 07/24/2021 HEPAT ITIS PANEL hepatitis B surface Ag Nonrea ctive non-re active normal Not Available [facility] [address] [place] [address], [id number], 07/25/2021 17:05:17 07/24/20 21 07/24/2021 HEPAT ITIS PANEL hcab, reflex viral RNA qt Nonrea ctive non-re active normal Antib odies to HCV were not detec essence; does not exclu de the possi bilit y of expos ure to HCV. Not Available [facility] [address] [place] [address], [id number], 07/25/2021 17:05:17 07/24/20 21 07/25/2021 HEPAT ITIS PANEL hepatitis A Ab, IgM NON-RE ACTIVE non-re active normal For addit ional infor shayy sanches e refer to http: //[facility] catlarisa n.que stdia gnost ics.c om/fa q/FAQ (This link is being provi ded for infor matio nal/ educa mike l purpo ses only. ) TEST PERFO RMED AT: [facility] [address] [place] [address] RITU Lanier MD Not Available [facility] [address] [place] [address], [id number], 07/25/2021 17:05:17 07/24/20 21 07/25/2021 HEPAT ITIS PANEL hepatitis B core Ab,IgM NON-RE ACTIVE non-re active normal TEST PERFO RMED AT: [facility] [address] [place] [address] RITU Lanier MD Not Available [facility] [address] [place] [address], [address], 07/25/2021 17:05:17 07/24/20 21 07/24/2021 B12/F OLIC ACID PANEL folic acid 16.5 NG/mL 4.6-34 .8 normal Not Available [facility] [address] [place] [address], [address], 07/24/2021 17:21:21 07/24/20 21 07/24/2021 B12/F OLIC ACID PANEL vitamin B12 1583 pg/mL 232-12 45 high Not Available [facility] [address] [place] [address], [address], 07/24/2021 17:21:21 07/24/20 21 07/24/2021 VITAM IN D 25-OH vitamin D 25-oh, total 31 NG/mL >=30 NG/mL normal Not Available [facility] [address] [place] [address], [address], 07/24/2021 17:21:23 07/24/20 21 07/27/2021 ANTI- CCP anti-ccp <16 units normal Refer ence Range Negat dileep: <20 Weak Posit dileep: 20-39 Moder ate Posit dileep: 40-59 Stron g Posit dileep: >59 TEST PERFO RMED AT: [facility] [address] [place] [address] RITU Lanier MD Not Available [facility] [address] [place] [address], [id number], 07/27/2021 03:00:12 07/24/20 21 07/28/2021 CINDI W/ REFLE X CINDI screen NEGATI VE negati ve normal CINDI IFA is a first line scree n for detec ting the prese nce of up to appro ximat destinee 150 autoa ntibo dies in vario us autoi mmune disea ses. A negat dileep CINDI IFA resul t sugge sts an CINDI-a ssoci ated autoi mmune disea se is not prese nt at this time, but is not defin itive . If there is high clini ryan suspi cion for Sjogr en's syndr ome, testi ng for anti- SS-A/ Ro antib rebecca shoul d be consi dered . Anti- Pascale-1 antib rebecca shoul d be consi dered for clini winsome suspe cted infla mmato ry myopa leydi . AC-0: Negat dileep Inter natio nal Conse nsus on CINDI Patte rns (http s://d oi.or g/10. 1515/ [facility]- 2017- 0052) For addit ional infor shayy sanches e refer to http: //[facility] barrett seay.Que stDia gnost ics.c om/fa q/FAQ 177 (This link is being provi ded for infor matio nal/ educa mike l purpo ses only. ) TEST PERFO RMED AT: [facility] [address] [place] [address] RITU Lanier MD Not Available [facility] [place], [address], 07/28/2021 01:40:40 07/24/2007/24/2021 XR, wrist + hand [facility] [address] [place] [address] [place] [address] Rin lopez Name: DARBY lopez : 965 Rin lopez [facility]i ng [facility]: [facility] EXAM: XR HEBERT HANDS AND WRISTS 2VWS HISTOR Y: Bilate ral hand and wrist pain. COMPAR LAY: None. FINDIN GS: The bones of the left and right hand and wrist are normal in alignm ent. There is no eviden ce of fractu re. There are mild degene rative change s. There are mild degene rative change s in the interp halang eal joints . There is mild spurri ng at the first carpom etacar pal joint bilate rally. IMPRES RANCHO: 1. There are mild degene rative change s in the left and right hand and wrist. Interp reted By: Jason estevez MD Electr onical ly Signed By: Jason estevez MD on 2020 3:[address] [facility] [address] [place] [address], [place], [address], 07/26/2021 13:18:25 07/24/20 21 07/24/2021 XR, ankle + foot [facility] [address] [place] [address] [place] [address] Rin lopez Name: DARBY lopez : [phone] Rin lopez [facility]i ng [facility] EXAM DATE: 2020 EXAM: XR HEBERT FEET AND ANKLES 2VWS COMPAR LAY: None. HISTOR Y: Bilate ral ankle and foot pain. FINDIN GS: The bones of the left and right ankle are normal in alignm ent. There is no eviden ce of fractu re. There is mild spurri ng along the fibula r tip and medial malleo lar tip. The ankle mortis e is congru ent. There is mild to modera te enthes opathi c change about the calcan eus. The bones of the feet are normal in alignm ent. There are mild diffus e degene rative change s. IMPRES RANCHO: 1. There are mild degene rative change s in the feet and ankles . Interp reted By: Jason estevez MD Electr onical ly Signed By: Jason estevez MD on 2020 3:[address] [facility] [address], [address], 07/26/2021 13:18:25 07/24/20 21 07/24/2021 XR, sacro iliac joint (s), 3 or more view [address] [address] Patikristin t Name: DARBY lopez : 965 Patikristin t Orderi ng Provid er: [facility] EXAM DATE: 2020 EXAM: XR SACROI LIAC JOINTS MIN 3 VWS HISTOR Y: Pelvic pain. COMPAR LAY: None. FINDIN GS: The bones of the pelvis are normal in alignm ent. There are mild degene rative change s in the SI joints . There is no fractu re. IMPRES RANCHO: 1. There are mild degene rative change s in the SI joints . Interp reted By: Jason estevez MD Electr onical ly Signed By: Jason estevez MD on 2020 3:[address] [facility] [address], [phone], 07/26/2021 13:18:25 Result Notes None recorded. Procedures Surgical History None recorded. Imaging Results Imaging Date Name Status LastModified by Marky olguin Details LastModified Time 07/24/2021 XR, wrist + hand completed [facility] [address], [address], 07/26/2021 13:18:25 07/24/2021 XR, ankle + foot completed [facility] [address] [place], [address], 07/26/2021 13:18:25 07/24/2021 XR, sacroiliac joint(s), 3 or more view completed [facility] [address] [place], [address], 07/26/2021 13:18:25 Procedure Notes None recorded. Medical Equipment None Reported. Allergies Allergen ID Allergen Name Allergen Category Reaction Reaction Severity Criticality Documentation Date Start Date Code Code System Note Provider Name and Address Organization Details Recorded Time 066078 Product containin g penicilli n (product) medicatio n Not available Not available Not available 08/08/20162013 05623 8001 SNOMED Comme nt: Creat ed By: Bill Stover essence Date: 014 3:16: 51 PM; Not Available [facility] 6 10:40:02 Medications Name Sig Start Date Stop Date Status Note LastModified by Organization Details LastModified Time methocarb tavon 500 mg tablet TAKE ONE TABLET BY MOUTH DAILY NEEDED FOR SPASMS 07/24 completed Not Available Not Available Not Available bupropion HCl SR 150 mg tablet,12 hr sustained -release active Not Available Not Available Not Available Plaquenil 200 mg tablet Daily 07/24 completed Duration : 30 days;Mykel quency: daily;Me dication Descript ion: hydroxyc hloroqui ne; Dosage:1 ; Route:or al; refills: 3; Quantity :30 tablet Not Available Not Available Not Available ropinirol e 1 mg tablet active Not Available Not Available Not Available oxybutyni n chloride ER 10 mg tablet,ex tended release 24 hr active Not Available Not Available Not Available Climara 0.05 mg/24 hr transderm al patch active Not Available Not Available Not Available diclofena c ER 100 mg tablet,ex tended release 24 hr TAKE ONE TABLET BY MOUTH TWICE DAILY active Not Available Not Available No t Available hydrocodo ne 5 mg-acetam inophen 325 mg tablet TAKE ONE TABLET BY MOUTH TWICE DAILY FOR PAIN active Not Available Not Available No t Available lisinopri l 20 mg tablet Bedtime 07/24 completed Duration : 30 days;Mykel quency: hs;Medic ation Descript ion: lisinopr il; Dosage:1 ; Route:or al; refills: 5; Quantity :30 tablet Not Available Not Available Not Available rizatript an 10 mg tablet TAKE 1 TABLET BY MOUTH ONCE As Needed for migraine headache ; may repeat once after at least 2 hours; max 2TABS/24 hOUrs, max 4/week active Not Available Not Available No t Available metoprolo l succinate ER 100 mg tablet,ex tended release 24 hr take 1 tablet by mouth DAILY for blood pressure ; active Not Available Not Available No t Available sulfasala zine 500 mg tablet,de layed release active Not Available Not Available Not Available cyanocoba neri (vit B-12) 1,000 mcg tablet TAKE ONE TABLET BY MOUTH DAILY active Not Available Not Available No t Available topiramat e 25 mg tablet active Not Available Not Available Not Available phentermi ne 37.5 mg tablet take 1 tablet by mouth daily; must administ er 30 minutes before or 1-2 hours after breakfas t active Not Available Not Available No t Available simvastat in 80 mg tablet active Not Available Not Available Not Available tramadol 50 mg tablet TAKE ONE TABLET BY MOUTH TWICE DAILY FOR PAIN active Not Available Not Available No t Available simvastat in 40 mg tablet TAKE ONE TABLET BY MOUTH DAILY active Not Available Not Available No t Available Zantac 15 mg/mL oral syrup Two times a day 07/24 completed Duration : 10 days;Mykel quency: bid;Medi cation Descript ion: ranitidi ne; Route:or al; refills: 0; Quantity :84 syrup Not Available Not Available Not Available gabapenti n 800 mg tablet TAKE ONE TABLET BY MOUTH TWICE DAILY FOR nerve pain active Not Available Not Available No t Available pantopraz ole 40 mg tablet,de layed release TAKE ONE TABLET BY MOUTH DAILY active Not Available Not Available No t Available Prozac 20 mg capsule Daily 07/24 completed Frequenc y: daily;Me dication Descript ion: fluoxeti ne; Dosage:1 ; Route:or al; refills: 0; Quantity :30 capsule Not Available Not Available Not Available lidocaine 5 % topical patch active Not Available Not Available Not Available bupropion HCl 75 mg tablet take 1 tablet by mouth 2 times daily administ er 6 hours apart active Not Available Not Available No t Available oxybutyni n chloride ER 5 mg tablet,ex tended release 24 hr TAKE ONE TABLET BY MOUTH DAILY active Not Available Not Available No t Available Neurontin 400 mg capsule Bedtime 07/24 completed Instruct ions: 1 hs for nerve pain. May ^ q 7d if needed to 2 hs; 1 am, 2 hs; 2 am, 2 hs ;Frequen cy: hs;Medic ation Descript ion: gabapent in; Dosage:1 ; Route:or al; refills: 5; Quantity :30 capsule Not Available Not Available Not Available folic acid 1 mg tablet active Not Available Not Available Not Available topiramat e 100 mg tablet TAKE ONE TABLET BY MOUTH TWICE DAILY active Not Available Not Available No t Available Flexeril 10 mg tablet Three times a day active Frequenc y: tid;Medi cation Descript ion: cycloben zaprine; Dosage:1 ; Route:or al; refills: 0; Quantity :30 tablet Not Available Not Available Not Available oxycodone 5 mg tablet TAKE 1 TABLET(5 mg) orally every 6 hours As Needed for pain active Not Available Not Available No t Available hydroxyzi ne pamoate 25 mg capsule TAKE ONE CAPSULE BY MOUTH TWICE DAILY FOR FIVE DAYS NEEDED FOR ANXIETY active Not Available Not Available No t Available duloxetin e 30 mg capsule,d elayed release TAKE ONE CAPSULE BY MOUTH TWICE DAILY active Not Available Not Available No t Available meloxicam 07/24 completed Medicati on Descript ion: meloxica m; Route:or al; refills: 0 Not Available Not Available Not Available metoprolo l tartrate active Medicati on Descript ion: metoprol ol; Route:or al; refills: 0 Not Available Not Available Not Available cholecalc iferol (vitamin D3) 1,250 mcg (50,000 unit) capsule active Not Available Not Available Not Available Estroven Maximum Strength 07/24 completed Medicati on Descript ion: miscella neous; Route:or al; refills: 0 Not Available Not Available Not Available GaviLyte- G 236 gram-22.7 4 gram-6.74 gram-5.86 gram oral solution take 240 ML by mouth every 10 Minutes until fecal effluent is clear active Not Available Not Available No t Available Myrbetriq 50 mg tablet,ex tended release active Not Available Not Available Not Available Xeljanz XR 11 mg tablet,ex tended release active Not Available Not Available Not Available Emgality Pen 120 mg/mL subcutane ous pen injector inject 1 syringe sub-q ONCE every 28 days 07/24 completed Not Available Not Available Not Available [facility] ODT 75 mg disintegr ating tablet dissolve 1 tablet under the tongue every other day for Chronic intracta ble migraine active Not Available Not Available No t Available Ajovy 225 mg/1.5 mL subcutane ous auto-inje ctor active Not Available Not Available Not Available Auvelity 45 mg-105 mg tablet, extended release active Not Available Not Available Not Available Vitals Date Recorded Body height Body mass index (BMI) Body weight Heart rate Systolic blood pressure Diastolic blood pressure Provider Name and Address Organization Details Last Updated DateTime 170.18 cm 31.2 kg/m2 70631.8 8 g 60 /min 110 mm[Hg] 66 mm[Hg] Patriciaberna correa [facility] 13:37:03 Social History Question Answer Notes LastModified by Organizat ion Details LastModified Time Tobacco Smoking Status [facility] 07/24/2021 13:35:13 What Is Your Level Of Alcohol Consumption? None Information not available 07/24/2021 What Was The Date Of Your Most Recent Tobacco Screening? 07/24/2021 Information not available 07/24/2021 Do You Use Any Illicit Or Recreational Drugs? No Information not available 07/24/2021 Has Tobacco Cessation Counseling Been Provided? No Information not available 07/24/2021 Do You Or Have You Ever Used Any Other Forms Of Tobacco Or Nicotine? No Information not available 07/24/2021 Sex: Female Functional Status None recorded. Mental Status None recorded. Family History Nothing Reported. Medical History Condition Response Diabetes N Bleeding Disorder N Arthritis Y Emphysema N Acid Reflux (GERD) Y Heart Disease N Hypertension N COPD N Asthma N Gynecological HistoryNo gynecological history recorded. Obstetrics History GPAL:G 0 P 0 0 0 0 Past Encounters Encounter ID Performer Location Encounter Start Date Encounter Closed Date Diagnosis/Indication Diagnosis SNOMED-CT Code Diagnosis ICD10 Code Diagnosis Note [id number] KYLE PEREIRA MD RHEUMATOL [facility] [address] [place] [address] 07/24/2021 13:08:53 07/24/2021 14:22:44 Pain of multiple joints 11810480 M25.50 Nonspecifi c, mechanical in nature. No dactylitis , enthesopat hy or synovitis. Decent range of motion across her joint. Has early on OA changes of her DIPs. Giving the family history of RA, prolonged symptoms and questionab le undifferen tiated connective tissue I opted to proceed with the illustrate d plan of care for work-up completion . My suspicion for underlying autoimmune rheumatic disease is very very low. I did share my intake with patient. All her question answered. She verbalized understand . Myofascial pain 15058106 9 M79.10 Will check the illustrate d plan of care for work-up completion . Defer fibromyalg ia and pain management to primary care kind discretion . Continue follow-up with neurology for obstructiv e MISBAH management . Health Concerns Section Related Observation LastModified by Organization Detai ls LastModified Time None Recorded Concern Status LastModified by Organization Details LastModified Time None Recorded Advance Directives Directive None Recorded Payers Encounter Date Sequence Insurance Name Policy Number Policy Ceballos Covered Member ID Ceballos Member ID Guarantor Name 07/24/2021 1 [facility] (MEDICAID REPLACEMENT - HMO) Nargis Abdi [id number] Nargis Abdi Notes Date Note Type Note Provider Name and Address Organization Details Recorded Time 07/24/2021 text/html A 56-year-old fe male with hyperlipidemia, fibromyalgia, obstructive sleep apnea, here in our clinic in consultation by her primary care provider to evaluate MSK symptoms for underlying autoimmune rheumatic disease. Today she reports pain pretty much every joint especially hands, wrists and feet that worsened in the last 6 months with the perception of swelling. She takes diclofenac 100 mg extended release twice a day. She is on Cymbalta 30 mg twice a day and gabapentin 800 mg twice a day for her fibromyalgia. She is on rizatriptan for migraine. She sees neurology for white matter changes and obstructive sleep apnea evaluation and management. Off CPAP and working on weight loss. Has some fatigue. She denies any current chest pain, shortness of air, nausea, vomiting, hemoptysis, hematemesis, skin rash, fever. No clear history of loss, miscarriages, blood clots, seizure, heart attack, pleurisy, pericarditis, pericardial effusion, pleural effusion, alopecia or Raynaud's phenomenon. She mentioned bluish/purplish discoloration of fingertips upon cold exposure with no other color changes. 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 Diagnosed with fibromyalgia by primary care back in 1994. She does not smoke nor drink alcohol. Mother of 6. KYLE PEREIRA MD [address] [place] [address], [phone], [facility] 07/25/2021 13:42:59 OBGyn Episode No OBEpisode recorded.
--- OUTSIDE RECORDS SUMMARY | 2025-01-07 06:28 | XMS_ITS | Clinical Summary ---
Author Organization [facility] Address [address] [place] [address] Phone Care Team Providers Care Rigging Foreman Name Role Phone Vesna SILVA, Nolan Flores Unavailable + [phone] Aurea SILVA, Davon Lanier Unavailable [phone] Reason for Visit and Chief Complaint [Patient Encounter] Problems Includes: Problems addressed during this encounter and other active Problems All Visits Onset Date Resolved Date Provider Condition S tatus Joint Pain, Localized in the Knee 08/02/2018 Nolan Malagon MD Active Last Documented On 8 9:14AM ; [facility], [facility] Plan of Treatment No Plan of Treatment Recorded Assessments Includes: Assessments from this encounter No Assessments Recorded Medical Equipment - Implanted Devices Includes: Current Devices No Medical Equipment Recorded Medications Includes: Medications discussed during this encounter and other current Medications Current Medications (continue as prescribed) Gabapentin 600MG Oral Tablet 07/27/2018 Provider: Davon Villar MD Diagnosis: Last Documented On 8 9:15AM By Janneth Bearden ; [facility], [facility] BuPROPion HCl 75MG Oral Tablet 07/23/2018 Provider: Davon Villar MD Diagnosis: Last Documented On 8 9:15AM By Janneth Bearden ; [facility], [facility] Metoprolol Tartrate 100MG Oral Tablet 07/19/2018 Pro vider: Diagnosis: Last Documented On 8 9:15AM By Janneth Bearden ; [facility] DULoxetine HCl 30MG Oral Capsule Delayed Release Parti cles 07/19/2018 Provider: Diagnosis: Last Documented On 8 9:15AM By Janneth Bearden ; [facility] Topiramate 100MG Oral Tablet 07/19/2018 Provider: Diagnosis: Last Documented On 8 9:15AM By Janneth Bearden ; [facility], [facility] Lisinopril 10MG Oral Tablet 07/16/2018 Provider: Davon Villar MD Diagnosis: Last Documented On 8 9:15AM By Janneth Bearden ; [facility] Calcium-Vitamin D3 [id number] Oral Tablet 07/16/20 18 Provider: Diagnosis: Last Documented On 8 9:16AM By Janneth Bearden ; [facility] Medications Administered Includes: Administered Medications from this encounter No Administered Medications Recorded Results Includes: Results discussed during this encounter No Results Recorded For Specified Dates History of Present Illness Includes: History of Present Illness from this encounter No History of Present Illness Recorded Social History No Social History Recorded - Smoking Status Unknown Medical History Includes: Medical History addressed during this encounter No Medical History Recorded Family History Includes: Family History addressed during this encounter No Family History Recorded Review of Systems Includes: Review of Systems from this encounter No Review of Systems Recorded Mental Status Includes: Mental Status from this encounter No Mental Status Recorded Functional Status Includes: Functional Status from this encounter No Functional Status Recorded Physical Exam Includes: Physical Exam from this encounter No Physical Exam Recorded Allergies Includes: Active Allergies No Known Allergies Encounters Encounter Provider Location Date Check-In Time Check-Out Time Diagnosis [Patient Encounter] Nolan Malagon MD 8 11:09AM 11:59PM Insurance Includes: Active Insurance Policies Plan Name Member ID Group # Subscriber Relationship Effect jina Dates 1 - [employer] MEDICA[employer] [id number] Nargis Hernandez Clinical Notes Includes: Clinical Notes from this encounter No Clinical Notes Recorded
--- OUTSIDE RECORDS SUMMARY | 2025-01-07 06:28 | XMS_ITS | Clinical Summary ---
Author Organization [facility] Address [address] [place] [address] Phone Care Team Providers Care Section Weaver Name Role Phone Vesna SILVA, Nolan Flores Unavailable [phone] Aurea SILVA, Davon Lanier Unavailable [phone] Reason for Visit and Chief Complaint The Chief Complaint is: LEFT KNEE PAIN Problems Includes: Problems addressed during this encounter and other active Problems All Visits Onset Date Resolved Date Provider Condition S tatus Joint Pain, Localized in the Knee 08/02/2018 Nolan Malagon MD Active Last Documented On 8 9:14AM ; [facility] Plan of Treatment NON-SURGICAL PLAN: PHYSICAL THERAPY SPC FOR AMBULATION TYLENOL FOR PAIN FOLLOW UP: [address] Merritt; LEFT KNEE XOA - Last Documented On 08/31/2018 8:03AM ; [facility] Instructions to patient Instructions for patient Last Documented On 8 3:46PM ; [facility] Assessments Includes: Assessments from this encounter Findings LEFT KNEE ASPIRATE: WBC 58, PMNS 52%, NO GROWTH. SYNOVASURE NEGATIVE. ESR 12, CRP. - Last Documented On 08/31/2018 8:03AM ; [facility] POSSIBLE ANTERIOR TIBIA BRUISE FROM FALLING ON LEFT TKA REVISION DONE 4 YEARS. HAD BEEN DOING WELL UNTIL 6 MONTHS AGO. CANNOT TAKE NSAIDs D/T KIDNEYS. - Last Documented On 08/31/2018 8:03AM ; [facility] Instructions Includes: Instructions from this encounter Instructions to patient Instructions for patient Last Documented On 8 3:46PM ; [facility] Medical Equipment - Implanted Devices Includes: Current Devices No Medical Equipment Recorded Medications Includes: Medications discussed during this encounter and other current Medications Current Medications (continue as prescribed) Gabapentin 600MG Oral Tablet 07/27/2018 Provider: Davon Villar MD Diagnosis: Last Documented On 8 9:15AM By Janneth Bearden ; [facility] BuPROPion HCl 75MG Oral Tablet 07/23/2018 Provider: Davon Villar MD Diagnosis: Last Documented On 8 9:15AM By Janneth Bearden ; [facility] Metoprolol Tartrate 100MG Oral Tablet 07/19/2018 Pro vider: Diagnosis: Last Documented On 8 9:15AM By Janneth Bearden ; [facility] DULoxetine HCl 30MG Oral Capsule Delayed Release Parti cles 07/19/2018 Provider: Diagnosis: Last Documented On 8 9:15AM By Janneth Bearden ; [facility] Topiramate 100MG Oral Tablet 07/19/2018 Provider: Diagnosis: Last Documented On 8 9:15AM By Janneth Bearden ; [facility] Lisinopril 10MG Oral Tablet 07/16/2018 Provider: Davon Villar MD Diagnosis: Last Documented On 8 9:15AM By Janneth Bearden ; [facility] Calcium-Vitamin D3 [id number] Oral Tablet 07/16/20 18 Provider: Diagnosis: Last Documented On 8 9:16AM By Janneth Bearden ; [facility] Medications Administered Includes: Administered Medications from this encounter No Administered Medications Recorded Vital Signs Includes: Vital Signs from this encounter Vital Name 08/26/2018 03:47P Height (in) 67 Weight (lb) 198 Body Mass Index (kg/m2) 31.0 Body Surface Area (m2) 2.0 Note: tdt Last Documented: On 08/26/2018 3:47PM ; [facility] Results Includes: Results discussed during this encounter No Results Recorded For Specified Dates History of Present Illness Includes: History of Present Illness from this encounter LAVELLE Abdi is a 53 year old female. - Medication list reviewed with patient. Social History Description Last Updated Caffeine use 08/02/2018 Last Documented On 8 3:46PM ; [facility] No recent change in diet 08/02/2018 Last Documented On 8 3:46PM ; [facility] Not a current smoker 08/02/2018 Last Documented On 8 3:46PM ; [facility] Not exercising regularly 08/02/2018 Last Documented On 8 3:46PM ; [facility] Not using alcohol 08/02/2018 Last Documented On 8 3:46PM ; [facility] Not using drugs 08/02/2018 Last Documented On 8 3:46PM ; [facility] No tobacco use 08/02/2018 Last Documented On 8 3:46PM ; [facility] Smoking status : Never smoker 08/02/2018 Last Documented On 8 3:46PM ; [facility] Procedures and Surgical History Includes: Procedures from this encounter Procedures Code Diagnosis Performing Provider Service L ocation Service Date Clinical summary provided to patient Last Documented On 8 3:46PM ; [facility] Surgical History Last Updated History of hysterectomy 08/02/2018 Last Documented On 8 3:46PM ; [facility] Medical History Includes: Medical History addressed during this encounter Description Last Updated Arthritic joint problems 08/02/2018 Last Documented On 8 3:46PM ; [facility] Gallbladder disease 08/02/2018 Last Documented On 8 3:46PM ; [facility] History of depression 08/02/2018 Last Documented On 8 3:46PM ; [facility] Intermittent hypertension 08/02/2018 Last Documented On 8 3:46PM ; [facility] Family History Includes: Family History addressed during this encounter Description Last Updated Family history of diabetes mellitus FATH ER ~BROTHER ~DAUGHTER 08/02/2018 Last Documented On 8 3:46PM ; [facility] Family history of heart disease FATHER ~ SISTER 08/02/2018 Last Documented On 8 3:46PM ; [facility] Family history of thromboembolic disease DAUGHTER 08/02/2018 Last Documented On 8 3:46PM ; [facility] Family history of cancer BROTHER- LUNG ~ SISTER-BREAST ~SISTER-COLON 08/02/2018 Last Documented On 8 3:46PM ; [facility] Family history of hypertension 8 Last Documented On 8 3:46PM ; [facility] Family history of osteoporosis 8 Last Documented On 8 3:46PM ; [facility] Review of Systems Includes: Review [...] Location Date Check-In Time Check-Out Time Diagnosis Follow Up Nolan Malagon MD [facility] 08/26/20 18 3:41PM 5:37PM Insurance Includes: Active Insurance Policies Plan Name Member ID Group # Subscriber Relationship Effect jina Dates 1 - [employer] MEDICA[employer] [id number] Nargis Abdi Self Clinical Notes Includes: Clinical Notes from this encounter No Clinical Notes Recorded
[2025-01-07] MEDS: ASPIRIN 81MG CHEWABLE TABLET 324 MG PO (06:31)
[2025-01-07] MEDS: ACETAMINOPHEN 500MG TAB 1000 MG PO (06:31)
[2025-01-07] MEDS: LACTATED RINGERS 1000ML 1,000 ML 999 ML IV (06:32)
[2025-01-07] MEDS: PROCHLORPERAZINE 10MG/2ML VIAL 10 MG IV (06:32)
[2025-01-07 06:33] LABS: Basophils # 0.1 K/mm3 (0-0.2); Eosinophils # 0.3 Kmm3 (0.0-0.4); Eosinophils % 3.4 % (0.1-12.0); Hematocrit 38.8 % (37.0-47.0); Hemoglobin 12.5 g/dL (12.2-16.2); Lymphocytes # 1.8 K/mm3 (0.7-4.5); Lymphocytes % 23.3 % (10-50); Mean Corpuscular HGB Conc 32.2 g/dL (31.8-35.4); Mean Corpuscular Hemoglobin 30.6 pg (27.0-31.2); Mean Corpuscular Volume 95.1 fl (81-99); Mean Platelet Volume 11.5 fl (7.4-10.4); Monocytes # 0.7 K/mm3 (0.1-1.0); Monocytes % 9.2 % (1.7-9.3); Neutrophils # 4.8 K/mm3 (1.8-7.8); Neutrophils % 62.8 % (37.0-80.0); Nucleated Red Blood Cells # 0 10^3/uL; Nucleated Red Blood Cells % 0 %; Platelet Count 266 K/mm3 (142-424); Red Blood Count 4.08 M/mm3 (4.20-5.40); Red Cell Distribution Width 13.5 % (11.5-17.5); Red Cell Distribution Width-SD 47.5 fL; White Blood Count 7.7 K/mm3 (4.8-10.8)
[2025-01-07 06:36] LABS: Albumin Level 4.3 g/dl (3.5-5.0); Chloride 108 mmol/L (98-107); Potassium 4.3 mmoL/L (3.5-5.1); Sodium 142 mmol/L (136-145)
[2025-01-07 06:39] LABS: Alanine Aminotransferase 21 U/L (12-78); Albumin/Globulin Ratio 1.5 (1.1-1.8); Alkaline Phosphatase 72 U/L (38-126); Anion Gap 10.3 mEq/L (5-15); Aspartate Amino Transferase 44 U/L (14-36); Bilirubin,Total 0.5 mg/dl (0.2-1.3); Blood Urea Nitrogen 16 mg/dl (7-17); Carbon Dioxide 28 mmol/L (22.0-30.0); Creatinine Clearance Estimated 78 mL/min (50-200); Estimated Glomerular Filt Rate 46 ml/min (>60); GFR (African American) 56 ML/MIN (>60); Globulin 2.8 g/dL (1.3-3.2); Glucose 100 mg/dl (74-100); Total Protein,Serum 7.1 g/dl (6.3-8.2)
[2025-01-07 06:50] LABS: D-Dimer 0.63 ug/mL (0.0-0.5)
[2025-01-07 06:52] LABS: Troponin I < 0.01 ng/ml (0.00-0.034)
[2025-01-07 07:23] LABS: HIV Combo NEGATIVE (Negative)
[2025-01-07 07:32] LABS: Hepatitis C Ab Qual. W/ RFX NEGATIVE (Negative)
--- NOTE | 2025-01-07 07:40 | PC.NURSE ---
rounded on pt at this time. no needs voiced at this time
--- NOTE | 2025-01-07 08:38 | PC.NURSE ---
walked patient to the bathroom
[2025-01-07 09:46] LABS: Troponin I < 0.01 ng/ml (0.00-0.034)
== END 2025-01-07 10:32 | disposition home or self-care (01) ==
PROVIDERS: Emergency Provider Emergency Medicine
DX: R07.89 Other chest pain (principal); R00.1 Bradycardia, unspecified; R51.9 Headache, unspecified; R11.0 Nausea; Z11.59 Encounter for screening for other viral diseases; Z11.4 Encounter for screening for human immunodeficiency virus [HIV]
CPT/HCPCS: 71045; 80053; 84484; 85025; 85378; 86803; 87389; 93005; 96361; 96374; 99285; J0780; J7120

== ENCOUNTER 2025-01-17 10:10 | Outpatient (CLI) | payer MEDICAID, SELFPAY ==
--- OUTSIDE RECORDS SUMMARY | 2025-01-17 10:12 | XMS_ITS | Data Portability ---
Author Organization [facility] Address [address] [place] [address] Care Team Providers Care Generation Engineering Technologist Name Role Phone SHAWNEESTEVENSONLARISA Referring Provider Assessment Encounter Date Assessment Date Assessment LastModified by Organization Details LastModified Time 07/24/2021 07/24/2021 A 56 year old female htantoush Not available 07/24/2021 14:30:43 Plan of Treatment Reminders Order Date Submit Date Provider Last Modified By Organization Details Last Modified Time Details Appointments None recorded. Lab CK (creatine kinase), total, serum 2020 [facility], [address] [place] [address], [id number], 17:08:21 vitamin B12 + folate, serum or blood 2020 [facility], [address] [place] [address], [id number], 17:21:21 magnesium, QN, serum or plasma 2020 [facility], [address] [place] [address], [id number], 17:08:22 vitamin D, 25-hydroxy, total, serum 2020 [facility], [address] [place] [address], [id number], 17:21:23 CINDI (antinuclea r antibodies) panel, serum 2020 [facility], [address] [place] [address], [id number], 01:40:40 ccp (cyclic citrullinat ed peptide) iga+igg, serum 2020 [facility], [address] [place] [address], [id number], 03:00:12 C reactive protein, QN, serum or plasma 2020 [facility], [address] [place] [address], [id number], 17:08:19 ESR (erythrocyt e sedimentati on rate), blood 2020 [facility], [address] [place] [address], [id number], 16:50:33 rf (rheumatoid factor), serum 2020 [facility], [address] [place] [address], [id number], 17:08:20 hepatitis (A+B+C) panel, serum 2020 [facility], [address] [place] [address], [id number], 17:15:11 TSH, serum or plasma 2020 [facility], [address] [place] [address], [id number], 17:14:09 Referral None recorded. Procedures None recorded. Surgeries None recorded. Imaging XR, sacroiliac joint(s), 3 or more view 2020 [email or web address], [address] [place], [id number], 14:09:26 XR, wrist + hand 2020 021 [facility], [address] [place] [address], [id number], 09:05:12 XR, ankle + foot 2020 021 [facility], [address] [place] [address], [id number], 09:05:13 Medication Orders None recorded. Patient TargetsNo targets recorded. Patient Instructions Encounter Date Encounter Id Patient Instructions Last Modified By Organization Details Last Modified Time 07/24/2021 [id number] Thank you for th e trust and [...] automated 37 mm 0-29 high Not Available [facility] [address] [place] [address], [id number], 07/24/2021 16:50:33 07/24/2007/24/2021 C REACT DILEEP PROTE IN C reactive protein 0.54 mg/dL 0.00-0 .49 high Not Available [facility] [address] [place] [address], [id number], 07/24/2021 17:08:19 07/24/20 21 07/24/2021 RF SCREE N, QUANT . rf screen, quant. 11.0 IU/mL 0.0-13 .9 normal Not Available [facility] [address] [place] [address], [id number], 07/24/2021 17:08:20 07/24/20 21 07/24/2021 CREAT INE KINAS E creatine kinase 50 U/L 0-169 normal Not Available [facility] [address] [place] [address], [id number], 07/24/2021 17:08:21 07/24/20 21 07/24/2021 MAGNE SIUM magnesium 2.1 mg/dL 1.6-2. 6 normal Not Available [facility] [address] [place] [address], [id number], 07/24/2021 17:08:22 07/24/20 21 07/24/2021 TSH TSH 2.260 uIU/m L 0.270- 4.200 normal Not Available [facility] [address] [place] [address], [id number], 07/24/2021 17:14:09 07/24/20 21 07/24/2021 HEPAT ITIS PANEL hepatitis B surface Ag Nonrea ctive non-re active normal Not Available [facility] [address] [place] [address], [id number], 07/25/2021 17:05:17 07/24/20 21 07/24/2021 HEPAT ITIS PANEL hcab, reflex viral RNA qt Nonrea ctive non-re active normal Antib odies to HCV were not detec essence; does not exclu de the possi bilit y of expos ure to HCV. Not Available [facility] [address] [place] [address], [id number], 07/25/2021 17:05:17 07/24/20 21 07/25/2021 HEPAT ITIS PANEL hepatitis A Ab, IgM NON-RE ACTIVE non-re active normal For addit ional infor shayy sanches e refer to http: //[facility] catlarisa n.que stdia gnost ics.c om/fa q/FAQ (This link is being provi ded for infor matio nal/ educa mike l purpo ses only. ) TEST PERFO RMED AT: [facility] [address] [place] [address] RITU Lanier MD Not Available [facility] [address] [place] [address], [id number], 07/25/2021 17:05:17 07/24/20 21 07/25/2021 HEPAT ITIS PANEL hepatitis B core Ab,IgM NON-RE ACTIVE non-re active normal TEST PERFO RMED AT: [facility] [address] [place] [address] RITU Lanier MD Not Available [facility] [address] [place] [address], [id number], 07/25/2021 17:05:17 07/24/20 21 07/24/2021 B12/F OLIC ACID PANEL folic acid 16.5 NG/mL 4.6-34 .8 normal Not Available [facility] [address] [place] [address], [address], 07/24/2021 17:21:21 07/24/20 21 07/24/2021 B12/F OLIC ACID PANEL vitamin B12 1583 pg/mL 232-12 45 high Not Available [facility] [address] [place] [address], [id number], 07/24/2021 17:21:21 07/24/20 21 07/24/2021 VITAM IN D 25-OH vitamin D 25-oh, total 31 NG/mL >=30 NG/mL normal Not Available [facility] [address] [place] [address], [id number], 07/24/2021 17:21:23 07/24/20 21 07/27/2021 ANTI- CCP anti-ccp <16 units normal Refer ence Range Negat dileep: <20 Weak Posit dileep: 20-39 Moder ate Posit dileep: 40-59 Stron g Posit dileep: >59 TEST PERFO RMED AT: [facility] [address] [place] [address] RITU Lanier MD Not Available [facility] [address] [place] [address], [id number], 07/27/2021 03:00:12 07/24/20 21 07/28/2021 CINDI W/ [...] Patte rns (http s://d oi.or g/10. 1515/ [facility]- 2017- 0052) For addit ional infor shayy sanches e refer to http: //[facility] barrett seay.Que stDia gnost ics.c om/fa q/FAQ 177 (This link is being provi ded for infor matio nal/ educa mike l purpo ses only. ) TEST PERFO RMED AT: [facility] [address] [place] [address] RITU Lanier MD Not Available [facility] [place], [address], 07/28/2021 01:40:40 07/24/2007/24/2021 XR, wrist + hand [facility] [address] [place] [address] [place] [address] Rin lopez Name: DARBY lopez : 965 Rin lopez [facility]i ng [facility]: 2020 EXAM: XR HEBERT [...] Jason estevez MD on 2020 3:23 PM [facility] [address] [place] [address], [place], [address], 07/26/2021 13:18:25 07/24/20 21 07/24/2021 XR, ankle + foot [facility] [address] [place] [address] [place] [address] Rin lopez Name: DARBY lopez : 965 Rin lopez Orderi ng [facility] EXAM DATE: 2020 EXAM: XR HEBERT [...] Jason estevez MD on 2020 3:23 PM [facility] [address], [address], 07/26/2021 13:18:25 07/24/20 21 07/24/2021 XR, sacro iliac joint (s), 3 or more view [address] [address] Patikristin t Name: DARBY lopez : [phone] [...] Jason estevez MD on 2020 3:24 PM [facility] [address], [address], 07/26/2021 13:18:25 Result Notes None recorded. Procedures Surgical History None recorded. Imaging Results Imaging Date Name Status LastModified by Marky olguin Details LastModified Time 07/24/2021 XR, wrist + hand completed [facility] [address], [address], 07/26/2021 13:18:25 07/24/2021 XR, ankle + foot completed [facility] [address] [place], [address], 07/26/2021 13:18:25 07/24/2021 XR, sacroiliac joint(s), 3 or more view completed [facility] [address] [place], [address], 07/26/2021 13:18:25 Procedure Notes None recorded. Medical Equipment None Reported. Allergies Allergen ID Allergen Name Allergen Category Reaction Reaction Severity Criticality Documentation Date Start Date Code Code System Note Provider Name and Address Organization Details Recorded Time 391792 Product containin g penicilli n (product) medicatio n Not available Not available Not available 08/08/20162013 99680 8001 SNOMED Comme nt: Creat ed By: Bill Stover essence Date: 014 3:16: 51 PM; Not Available [facility] 6 10:40:02 Medications Name Sig [...] completed Not Available Not Available Not Available [facility] ODT 75 mg disintegr ating tablet dissolve [...] Last Updated DateTime 170.18 cm 31.2 kg/m2 47616.8 8 g 60 /min 110 mm[Hg] 66 mm[Hg] Patriciaberna correa [facility] 13:37:03 Social History Question Answer Notes LastModified by Organizat ion Details LastModified Time Tobacco Smoking Status [facility] 07/24/2021 13:35:13 What Is Your [...] History Nothing Reported. Medical History Condition Response Emphysema N COPD N Diabetes N Bleeding Disorder N Arthritis Y Acid Reflux (GERD) Y Asthma N Heart Disease N Hypertension N Gynecological HistoryNo gynecological history recorded. Obstetrics History GPAL:G 0 P 0 0 0 0 Past Encounters Encounter ID Performer Location Encounter Start Date Encounter Closed Date Diagnosis/Indication Diagnosis SNOMED-CT Code Diagnosis ICD10 Code Diagnosis Note [id number] KYLE PEREIRA MD [facility] [address] [place] [address] 07/24/2021 13:08:53 07/24/2021 14:22:44 Pain of multiple joints 80803052 M25.50 Nonspecifi c, mechanical in nature. No [...] answered. She verbalized understand . Myofascial pain 98216185 9 M79.10 Will check the illustrate d [...] Ceballos Member ID Guarantor Name 07/24/2021 1 [facility] (MEDICAID REPLACEMENT - HMO) Nargis Abdi [id number] Nargis Abdi Notes Date Note Type Note [...] alcohol. Mother of 6. KYLE PEREIRA MD [address] [place] [address], [phone], [facility] 07/25/2021 13:42:59 OBGyn Episode No OBEpisode recorded.
--- NOTE | 2025-01-17 10:20 | XR_ITS ---
FINAL REPORT CLINICAL HISTORY: Rt Knee Pain COMPARISON: 05/12/2024 FINDINGS: AP, lateral and oblique views of the left knee were obtained. There is no acute osseous abnormality of the left knee. Degenerative joint disease is present, and appears similar to that seen on the prior exam of 05/12/2024. The soft tissues are normal. There is no joint effusion. IMPRESSION: No acute osseous abnormality of the left knee. Reviewed, Interpreted and Dictated by Maggie Aguilera MD Transcribed by Harriet Crystal Authenticated and [facility]
== END 2025-01-17 23:59 | disposition home or self-care (01) ==
LOC: RAD 10:10
PROVIDERS: PCP Family Medicine; Visit Provider Orthopaedic Surgery
DX: M25.561 Pain in right knee (principal)
CPT/HCPCS: 73562

== ENCOUNTER 2025-04-17 09:59 | Outpatient (CLI) | payer MEDICAID, SELFPAY ==
[2025-04-17 15:37] LABS: Cholesterol 191 mg/dl (140-200); HDL Cholesterol 62 mg/dl (40-60); Triglycerides 183 mg/dl (30-150)
[2025-04-17 15:56] LABS: 25-OH Vitamin D, Total 81.1 ng/mL (30-100)
[2025-04-17 16:03] LABS: C-Reactive Protein 3.0 mg/L (0-4)
[2025-04-17 16:08] LABS: Thyroid Stimulating Hormone 1.84 uIU/mL (0.465-4.68)
[2025-04-17 16:27] LABS: Vitamin B12 247 pg/mL (239-931)
--- OUTSIDE RECORDS SUMMARY | 2025-04-18 12:36 | XMS_ITS | Encounter Summary ---
Author Organization Healthcare Address [address] [place] [address] Care Team Providers Care [employer] Registrar Name Role Phone Davon Villar MD Primary Care Provider + [phone] Shell Wall Unavailable [phone] Brady Valentine DO Primary Care Provider [phone] Reason for Visit * Reason Comments Med Refill Encounter Details Date Type Department Care Team (Late st Contact Info) Description 01/30/2022 Refill [facility] [address], [address] [place] [address] Patricia Chong PA [address] [place] [address] Polyarthralgia Social History Tobacco Use Types Packs/Day Years Used Date Smoking Tobacco: Never Smokeless Tobacco: Never Comments:Never used tobacco Alcohol Use Standard Drinks/Week Comments No 0 (1 standard drink = 0.6 oz pure alcohol) Alcoholic Drinks/day: Never Drank Alcohol PHQ-2 Answer Date Recorded Patient Health Questionnaire-2 Score 6 12/03/2021 Comments Unknown Sex and Gender Information Value Date Recorded Sex Assigned at Female 11/29/2021 5:28 PM EDT Legal Sex Female 7:35 PM EDT Gender Identity Female 11/29/2021 5:28 PM EDT Sexual Orientation Straight 11/29/2021 5: 28 PM EDT documented as of this encounter Miscellaneous Notes * Telephone Encounter - Michael Graves, PharmD - 01/30/2022 12:16 PM EDT Enough refills until appointment on 03/06/[address] Chong. Please request additional refills at appointment. * Telephone Encounter - Georgina Mathias PharmD - 01/30/2022 10:15 AM EDT An appointment is required for additional medication refills. Requested Medication(s): HCQ Clinic Provider, if available: [facility] requesting a renewal of HCQ. Patient just had some dispensed on 01/27/2022 so she doesn't need it right away, but she never received a follow up appointment when she was seen in November. documented in this encounter Plan of Treatment Upcoming Encounters Date Type Department Care Team (Late st Contact Info) Description 04/25/2025 12:00 PM EDT Office Visit [facility] Medicine Specialties [address] [place] [address] September R, CABIN AGENT [address] [place] [address] documented as of this encounter Visit Diagnoses Diagnosis Polyarthralgia Pain in joint, multiple sites documented in this encounter Additional Health Concerns Assessment Noted Time PHQ-9 Depression Total Score: 24 022 9:15 AM EDT A fall risk assessment has been complete d for the patient 12/03/2021 9:16 AM EDT documented as of this encounter Care Teams Elementary [employer] Registrar Relationship Specialty Start Date End Date Davon Villar MD [address] [place] [address] PCP - General 12/03/21 10/29/23 Brady Valentine DO [address] [place] [address] PCP - General 10/30/23 Shell Wall PA [address] [place] [address] Physician Brick Stacker 06/20/22 documented as of this encounter
--- OUTSIDE RECORDS SUMMARY | 2025-04-18 12:36 | XMS_ITS | Encounter Summary ---
Author Organization Healthcare Address [address] [place] [address] Care Team Providers Care Underground Repairer Name Role Phone Shell Wall Unavailable [phone] Brady Valentine DO Primary Care Provider [phone] Reason for Visit * Reason Comments Med Refill Encounter Details Date Type Department Care Team (Late st Contact Info) Description 02/22/2025 Refill [place] [facility] [address] [place] [address] Shell Wall PA [address] [place] [address] Social History Tobacco Use Types Packs/Day Years Used Date Smoking Tobacco: Never Passive Smoke Exposure: Past Smokeless Tobacco: Never Comments:Never used tobacco Alcohol Use Standard Drinks/Week Comments Never 0 (1 standard drink = 0.6 oz pure alcohol) Alcoholic Drinks/day: Never Drank Alcohol PHQ-2 Answer Date Recorded Patient Health Questionnaire-2 Score 0 11/29/2024 PHQ-9 Answer Date Recorded Patient Health Questionnaire-9 Score 0 11/29/2024 PHQ-2A Answer Date Recorded Patient Health Questionnaire-2 Score 2 03/24/2023 Comments No Sex and Gender Information Value Date Recorded Sex Assigned at Female 11/29/2021 5:28 PM EDT Legal Sex Female 7:35 PM EDT Gender Identity Female 11/29/2021 5:28 PM EDT Sexual Orientation Straight 11/29/2021 5: 28 PM EDT documented as of this encounter Plan of Treatment Upcoming Encounters Date Type Department Care Team (Late st Contact Info) Description 04/25/2025 12:00 PM EDT [facility] Visit [facility] [address] [place] [address] Thaddeus, Martha R, RESIDENTIAL WORKER [address] [place] [address] documented as of this encounter Visit Diagnoses Not on filedocumented in this encounter Additional Health Concerns Assessment Noted Time PHQ-9 Depression Total Score: 0 11/30/19 25 1:12 PM EDT A fall risk assessment has been complete d for the patient 11/29/2024 1:12 PM EDT A Body Mass Index follow-up plan has been documented for the patient 11/29/2024 1:46 PM EDT documented as of this encounter Care Teams Underground Repairer Relationship Specialty Start Date End Date Brady Valentine DO [address] [place] [address] PCP - General 10/30/23 Shell Wall PA [address] [place] [address] Physician Assistant Track And Field Coach 06/20/22 documented as of this encounter
--- OUTSIDE RECORDS SUMMARY | 2025-04-18 12:36 | XMS_ITS | Clinical Summary ---
Author Organization [facility] Address [address] [place] [address] [address] [place] [address] Phone Care Team Providers Care Perpetual Inventory Clerk Name Role Phone Ravin SILVA, Huy Merritt Unavailable [ ] Conditions or Problems No information available. Medications No information available. Medications Administered No information available. Allergies, Adverse Reactions, Alerts No information available. Results No information available. Plan of Care No information available. Procedures No information available. Vital Signs No information available. Immunizations No information available. Advance Directives No information available.
--- OUTSIDE RECORDS SUMMARY | 2025-04-18 12:37 | XMS_ITS | Patient Health Record ---
Author Organization [facility] MD Address [address] [facility] [address] [facility] [address] [place] [address] Care Team Providers Care Building And Grounds Supervisor Name Role Phone Rl Perry Unavailable [phone] Reason For Referral No Information Problems Problem Type SNOMED Code ICD Code Onset Dates Problem Status W/U Status Risk Notes Problem Obstructive sleep apnea (81282011) Obstructive sleep apnea (G47.33) Active confirmed Problem Macroglossia (40411234) Macroglossia (Q38.2) Active confirmed Problem Daytime hypersomnolence (G47.19) Active confirmed Plan Of Treatment No Information Insurance Providers Payer Name Payer Address Payer Phone Subscriber Number Group Number Insured Name Patient Relationship to Insured Coverage Start Date Coverage End Date [facility] [address] [address] [place] [address] [phone] [id number] Nargis Bishop Self - patient is the insured
--- OUTSIDE RECORDS SUMMARY | 2025-04-18 12:37 | XMS_ITS | Clinical Summary ---
Author Organization [facility] Address [address] [place] [address] Care Team Providers Care Inside Sales Supervisor Name Role Phone [place], Shell Bhat PA Unavailable [phone] Brady Valentine DO Primary Care Provider [phone] Allergies Active Allergy Reactions Criticality Noted Date Comments Penicillins Hives High 11/15/2012 Medications Nurtec 75 MG tablet dispersible Take 1 tablet (75 mg) by mouth every other day. 2 Active metoprolol succinate XL (Toprol-XL) 100 MG 24 hr tablet Take 0.5 tablets (50 mg) by mouth 1 (one) time each day. 2 Active DULoxetine (Cymbalta) [address] capsule Take 1 capsule (30 mg) by mouth 2 (two) times a day. 2 Active pantoprazole (Protonix) 40 MG EC tablet Take 1 tablet (40 mg) by mouth 1 (one) time each day. 2 Active gabapentin (Neurontin) 800 MG tablet Take 1 tablet (800 mg) by mouth 3 (three) times a day. 2 Active traMADol (Ultram) 50 MG tablet 2 Active Vitamin D3 1.25 MG (18568 UT) capsule 3 Active rOPINIRole (Requip) 1 MG tablet 3 Active estradiol (Climara) 0.05 MG/24HR Place 1 patch on the skin 1 (one) time per week. 3 Active Auvelity 45-105 MG tablet controlled-relea se 4 Active oxyCODONE (Roxicodone) 5 MG immediate release tablet Take 1 tablet (5 mg) by mouth every 6 (six) hours if needed. 4 Active buPROPion SR (Wellbutrin SR) 150 MG 12 hr tablet Take 1 tablet (150 mg) by mouth 2 (two) times a day. 8 Active simvastatin (Zocor) 80 MG tablet Take 1 tablet (80 mg) by mouth every night. 4 Active atorvastatin (Lipitor) 20 MG tablet take 1 tablet by mouth at bedtime nightly Active oxyCODONE-acetam inophen (Percocet) 10-325 MG tablet Take by mouth if needed. Active Tofacitinib Citrate ER (Xeljanz XR) 11 MG tablet sustained-releas e 24 hourIndications: Seronegative rheumatoid arthritis of multiple sites (CMS/HCC) Take 1 tablet by mouth daily. 30 tablet 3 5 Active Ajovy 225 MG/1.5ML solution auto-injector INJECT THE CONTENTS OF 1 PEN UNDER THE SKIN EVERY 30 DAYS 1.5 mL 5 Active Ajovy 225 MG/1.5ML solution auto-injector INJECT 1 PEN UNDER THE SKIN EVERY 30 (THIRTY) DAYS. 1.5 mL 5 Active topiramate (Topamax) 25 MG tabletIndication s:Chronic migraine without aura, intractable, without status migrainosus Take 1 tablet by mouth 2 times a day. 60 tablet 5 Active topiramate (Topamax) 25 MG tabletIndication s:Chronic migraine without aura, intractable, without status migrainosus TAKE 1 TABLET BY MOUTH TWO TIMES A DAY 60 tablet 5 03/23/20 25 Discontinu ed(Reorder ) Active Problems Problem Noted Date Diagnosed Date Severe obesity (BMI 35.0-39.9) with comorbidity 10/30/2023 Encounters Date Type Department Care Team Description 04/17/2025 Telephone [facility] Medicine Specialties [address] [place] [address] Georgina Mathias, [facility] Incte initiation 03/23/2025 Refill [place] [facility] [address] [place] [address] Priya Stuart PA Chronic migraine without aura, intractable, without status migrainosus 03/09/2025 Telephone [facility] [address] [place] [address] Tennille Schulz, lockstitch topstitcher 02/22/2025 Refill [place] [facility] [address] [place] [address] Shell Wall PA Chronic migraine without aura, intractable, without status migrainosus 02/22/2025 Refill [place] [facility] [address] [place] [address] Shell Wall PA from Last 3 Months Immunizations Immunization Administration Dates Next Due Influenza, seasonal, injectable 06/20/2021 Moderna COVID-19 Vaccine (Deputy Bailiff) 12+ years ,04/17/2021 Tdap 10/21/2012 Family History Medical History Relation Name Comments Cancer Brother 1 Shasta Depression Brother 1 Shasta Diabetes Brother 1 Shasta Heart disease Brother 1 Shasta Kidney disease Brother 1 Shasta Obesity Brother 1 Shasta Single kidney Brother 1 Shasta Stroke Brother 1 Shasta Vision loss Brother 1 Shasta Depression Brother 2 Virg Heart disease Brother 2 Virg Migraines Brother 2 Virg Gout Brother 3 Hypertension Brother 4 Lung cancer Brother 5 Conversions - Other Brother 6 Other Sp ecified Family Circumstances Diabetes type II Brother 7 Arthritis Daughter 1 Therese Autoimmune disease Daughter 1 Therese Depression Daughter 1 Therese Diabetes Daughter 1 Therese Diabetes type I Daughter 1 [address]se Depression Daughter [address] MRSA Daughter [address] Depression Daughter 3 Skylar MRSA Daughter 3 Skylar CABG Father Prashant Conversions - Other Father Prashant Post Cho lecystectomy Coronary artery disease Father Prashant Dementia Father Prashant Depression Father Prashant Diabetes Father Prashant Diabetes type II Father Prashant Heart attack Father Prashant Heart disease Father Prashant Hypertension Father Prashant Obesity Father Prashant Parkinsonism Father Prashant Stroke Father Prashant Ulcers Father Prashant Heart disease Maternal Grandfather Marquis Arthritis Maternal Grandmother Radha Autoimmune disease Maternal Grandmother Radha Heart disease Maternal Grandmother Radha Stroke Maternal Grandmother Radha Anxiety disorder Mother Adelaide Arthritis Mother Adelaide Conversions - Other Mother Adelaide Other Sp ecified Family Circumstances Dementia Mother Adelaide Fibromyalgia Mother Adelaide Glaucoma Mother Adelaide Hyperlipidemia Mother Adelaide Hypertension Mother Adelaide Restless legs syndrome Mother Adelaide Stroke Mother Adelaide Thyroid disease Mother Adelaide Vision loss Mother Adelaide Breast cancer Mother's Sister Diabetes Other 1 Heart disease Other 2 Hyperlipidemia Other 3 Hypertension Other 4 Conversions - Other Other 5 Other Sp ecified Family Circumstances Conversions - Other Other 6 Other Sp ecified Family Circumstances Rheum arthritis Other 7 Stroke Other 8 Heart disease Paternal Grandfather [place] Heart disease Paternal Grandmother Vi Obesity Paternal Grandmother Vi Stroke Paternal Grandmother Vi Anxiety disorder Sister 1 Kk Arthritis Sister 1 Kk Autoimmune disease Sister 1 Kk Breast cancer Sister 1 Kk Cancer Sister 1 Kk Depression Sister 1 Kk Fibromyalgia Sister 1 Kk Heart disease Sister 1 Kk Obesity Sister 1 Kk Seizures Sister 1 Kk Cancer Sister 2 Nereida Colon cancer Sister 2 Nereida Heart disease Sister 2 Nere[place] Migraines Sister 2 [place]re[place] Obesity Sister 2 Nereida Depression Sister 3 Hypertension Sister 4 Conversions - Other Sister 5 Post Cho lecystectomy Seizures Sister 6 Thyroid disease Sister 7 Autoimmune disease Son 1 Ash Depression Son 1 Ash Autoimmune disease Son 2 Librado Depression Son 2 Librado Drug abuse Son 2 Librado Hepatitis, C Virus Son 2 Librado Relation Name Status Comments Brother 1 Shasta Brother 2 Virg Brother 3 Brother 4 Brother 5 Brother 6 Brother 7 Daughter [address] Daughter 3 Skylar Father Prashant Maternal Grandfather [place] Maternal Grandmother Radha Mother Adelaide Mother's Sister Other 1 Other 2 Other 3 Other 4 Other 5 Other 6 Other 7 Other 8 Paternal Grandfather [place] Paternal Grandmother Vi Sister 1 Kk Sister 2 Nereida Sister 3 Sister 4 Sister 5 Sister 6 Sister 7 Son 1 Ash Son 2 Librado Social History Tobacco Use Types Packs/Day Years Used Date Smoking Tobacco: Never Passive Smoke Exposure: Past Smokeless Tobacco: Never Tobacco Cessation:Counseling Given: Not Answered Comments:Never used tobacco Alcohol Use Standard Drinks/Week [...] Orientation Straight 11/29/2021 5: 28 PM EDT Last Filed Vital Signs Vital Sign Reading Time Taken Comments Blood Pressure 124/80 11/29/2024 1:09 PM EDT Pulse 65 11/29/2024 1:09 PM EDT Temperature 36.4 C (97.6 F) 11/29/2024 1:09 PM EDT Respiratory Rate 16 11/29/2024 1:09 PM EDT Oxygen Saturation 95% 11/29/2024 1:09 PM EDT Inhaled Oxygen Concentration - - Weight 99.8 kg (220 lb 0.3 oz) 11/29/2024 1:09 P M EDT Height 170.2 cm (5' 7 ) 11/29/2024 1:09 PM EDT Body Mass Index 34.46 11/29/2024 1:09 PM EDT Plan of Treatment Upcoming Encounters Date Type Department Care Team (Late st Contact Info) Description 04/25/2025 12:00 PM EDT Office Visit [facility] Medicine Specialties [address] [place] [address] Thaddeus, Martha R, PAPER REEL OPERATOR [address] [place] [address] Health Maintenance Due Date Last Done Comments [facility]-HIV Screening 1965 [facility]-Infant/Child/Adol SDOH Screenings 1965 [facility]- SDOH Screenings 1983 [facility]-Adult SDOH Screenings 1983 CT Colonography 2010 FIT-DNA 2010 FIT 2010 FOBT 2010 Sigmoidoscopy 2010 [facility]-Breast Cancer Screening 2015 [facility]-Pneumococcal Vaccine: 50+ Years (1 of 1 - PCV) 2015 [facility]-Zoster Vaccines (1 of 2) 2015 Colonoscopy 09/16/2021 09/16/2011 [facility]-Colorectal Cancer Screening 09/16/2021 [facility]-DTaP,Tdap,and Td Vaccines (2 - Td or Tdap) 10/21/2022 10/21/2012 [id number] Vaccine (3 - season) 2024 05/29/2021, 04/17/2021 [facility]-Influenza Vaccine (#1) 2025 06/20/2021 [facility]-Depression Screening 11/29/2025 11/29/2024, 11/12 [facility]-RSV Vaccine: 60+ Years or (1 - 1-dose 75+ series) 01/25/2040 [facility]-Hepatitis C Screening Completed 2022, 12/03/2021, 06/20/2015 [facility]-Obesity Intervention Completed 025, 06/14/2024, 06/03/2024, Additional history exists HPV Vaccines Aged Out No longer eligi ble based on patient's age to complete this topic [facility]-HIB Vaccines Aged Out No longer e ligible based on patient's age to complete this topic [facility]-Hepatitis A Vaccines Aged Out No longer eligible based on patient's age to complete this topic [facility]-IPV Vaccines Aged Out No longer e ligible based on patient's age to complete this topic [facility]-Rotavirus Vaccines Aged Out No lo nger eligible based on patient's age to complete this topic Procedures Procedure Name Priority Date/Time Associated Diagnosis Comments ACUTE HEPATITIS PANEL Routine 01/01/2023 3:43 PM EDT High risk medication use COLONOSCOPY 09/16/2011 from Last 3 Months or Most Recently Relevant to Health Maintenance Results * Acute Hepatitis Panel (01/01/2023 3:43 PM EDT) Hepatitis B Surf Antigen Negative Negative 01/01/2023 6:[address] [facility] Hepatitis C Antibody Negative Negative 01/01/2023 6:[address] [facility] Hepatitis A Antibody IgM Negative Negative 01/01/2023 6:15 PM ED[address] [facility] Hepatitis B Core Antibody IgM Negative Negative 01/01/2023 6:15 PM ED[address] [facility] Blood Venous blood specimen / Unknown Venipuncture / Unknown 01/01/2023 3:43 PM EDT 01/01/2023 3:47 PM EDT Patricia WATSON LAB BLOOD ORDERABLES Final Resul t [facility] [address] [place] [address] * COLONOSCOPY (09/16/2011) Anatomical Region Laterality Modality Endoscopy Narrative 09/16/2011 Ordered by an unspecified provider. Historical Provider GI PROCEDURE ORDERABLES F inal Result from Last 3 Months or Most Recently Relevant to Health Maintenance Insurance [employer] [place] Care Teams Inside Sales Supervisor Relationship Specialty Start Date End Date Brady Valentine DO [address] [place] [address] PCP - General 10/30/23 Shell Wall PA [address] [facility] [address] [place] [address] Physician Housing Director 06/20/22
--- OUTSIDE RECORDS SUMMARY | 2025-04-18 12:37 | XMS_ITS | Clinical Summary ---
Author Organization [employer] ([place], [place], [place], [place]) Address [address] [place] [address] Care Team Providers Care Rental Car Deliverer Name Role Phone Unavailable Primary Care Provider Unavailabl e Social History Tobacco Use Types Packs/Day Years Used Date Smoking Tobacco: Never Assessed Comments Unknown Sex and Gender Information Value Date Recorded Sex Assigned at Not on file Legal Sex Female 4:36 PM CDT Gender Identity Not on file Sexual Orientation Not on file Plan of Treatment Not on file
--- OUTSIDE RECORDS SUMMARY | 2025-04-18 12:37 | XMS_ITS | Encounter Summary ---
Author Organization Healthcare Address [address] [place] [address] Care Team Providers Care Director Traffic And Planning Name Role Phone Shell Wall Unavailable [phone] Brady Valentine DO Primary Care Provider [phone] Reason for Visit * Reason Onset Date Comments Med Refill 03/23/2025 Encounter Details Date Type Department Care Team (Late st Contact Info) Description 03/23/2025 Refill [place] [facility] [address] [place] [address] Priya Stuart PA [address] [place] [address] Chronic migraine without aura, intractable, without status migrainosus Social History Tobacco Use Types Packs/Day Years [...] encounter Miscellaneous Notes * Telephone Encounter - Florecita Coe Pelon - 04/05/2025 12:57 PM EDT Left VM: IF wanting to continue care w/ [facility], call to reschedule 1 of 3 no shows. documented in this encounter Plan of Treatment Upcoming Encounters Date Type Department Care Team (Late st Contact Info) Description 04/25/2025 12:00 PM EDT Office Visit [facility]ties [address] [place] [address] Thaddeus Martha R, SCRAPER TENDER [address] [place] [address] documented as of this encounter Visit Diagnoses Diagnosis Chronic migraine without aura, intractable, without status migrainosus documented in this encounter Additional Health Concerns Assessment Noted Time PHQ-9 Depression Total Score: 0 11/30/19 25 1:12 PM EDT A fall risk assessment has been complete d for the patient 11/29/2024 1:12 PM EDT A Body Mass Index follow-up plan has been documented for the patient 11/29/2024 1:46 PM EDT documented as of this encounter Care Teams Director Traffic And Planning Relationship Specialty Start Date End Date Brady Valentine DO [address] [place] [address] PCP - General 10/30/23 Shell Wall PA [address] [place] [address] Physician Green Plumber 06/20/22 documented as of this encounter
--- OUTSIDE RECORDS SUMMARY | 2025-04-18 12:37 | XMS_ITS | Referral Summary ---
Author Organization [employer] ([place], [place], [place], [place]) Address [address] [place] [address] Care Team Providers Care Senior It Recruiter Name Role Phone Unavailable Primary Care Provider [...]
--- OUTSIDE RECORDS SUMMARY | 2025-04-18 12:37 | XMS_ITS | Encounter Summary ---
Author Organization Healthcare Address [address] [place] [address] Care Team Providers Care Dairy Cattle Farm Worker Name Role Phone Shell Wall PA Unavailable Brady Valentine DO Primary Care Provider [phone] Reason for Visit * Reason Onset Date Comments Nurtec initiation 04/17/2025 Encounter Details Date Type Department Care Team (Late st Contact Info) Description 04/17/2025 Telephone [facility] Medicine Specialties [address] [place] [address] Georgina Mathias, [facility] [place] [address] Nurtec initiation Social History Tobacco Use Types Packs/Day Years [...] encounter Miscellaneous Notes * Telephone Encounter - Georgina Mathias RPh - 04/17/2025 10:26 AM EDT Mark WATSON received from outside prescriber documented in this encounter Plan of Treatment Upcoming Encounters Date Type Department Care Team (Late st Contact Info) Description 04/25/2025 12:00 PM EDT Office Visit [facility] Medicine Specialties [address] [place] [address] Martha Travis R, MILLINERY DESIGNER [address] [place] [address] documented as of this encounter [...] documented as of this encounter Care Teams Dairy Cattle Farm Worker Relationship Specialty Start Date End Date Brady Valentine DO [address] [place] [address] PCP - General 10/30/23 Shell Wall PA [address] [place] [address] Physician Claims Supervisor 06/20/22 documented as of this encounter
--- OUTSIDE RECORDS SUMMARY | 2025-04-18 12:37 | XMS_ITS | Encounter Summary ---
Author Organization Healthcare Address [address] [place] [address] Care Team Providers Care Holter Technician Name Role Phone Shell Wall Perlita PA Unavailable [phone] Brady Valentine DO Primary Care Provider [phone] Encounter Details Date Type Department Care Team (Late st Contact Info) Description 03/09/2025 Telephone [facility] [address] [place] [phone] Tennille Schuzl, [employer] sales [employer] lending team member Social History Tobacco Use Types Packs/Day Years [...] encounter Miscellaneous Notes * Telephone Encounter - Tennille Schulz [employer] sales [employer] lending team member - 03/09/2025 2:37 PM EDT Images from the original note were not included. Please transfer the ropinirole to local pharmacy documented in this encounter Plan of Treatment Upcoming Encounters Date Type Department Care Team (Late st Contact Info) Description 04/25/2025 12:00 PM EDT Office Visit [facility] [address] [place] [address] Thaddeus, September R, OPTICS MANUFACTURING TECHNICIAN [address] [place] [address] documented as of this encounter [...] documented as of this encounter Care Teams Holter Technician Relationship Specialty Start Date End Date Brady Valentine DO [address] [place] [address] PCP - General 10/30/23 Shell Wall PA [address] [place] [address] Physician Extension Associate 06/20/22 documented as of this encounter
--- OUTSIDE RECORDS SUMMARY | 2025-04-18 12:37 | XMS_ITS | Encounter Summary ---
Author Organization Healthcare Address [address] [place] [address] Care Team Providers Care Preassembler And Inspector Name Role Phone Shell Wall Unavailable Brady Valentine DO Primary Care Provider Reason for Visit * Reason Comments Med Refill Encounter Details Date Type Department Care Team (Late st Contact Info) Description 02/22/2025 Refill [place] [facility] [address] [place] [address] Shell Wall PA [address] [place] [address] Chronic migraine without aura, intractable, [...] Description 04/25/2025 12:00 PM EDT Office [facility] [place] [facility] [address] [place] [address] Martha Travis R, RESIDENTIAL SALES EXECUTIVE [address] [place] [phone] documented as of this encounter Visit Diagnoses [...] documented as of this encounter Care Teams Preassembler And Inspector Relationship Specialty Start Date End Date Brady Valentine DO [address] [place] [address] PCP - General 10/30/23 Shell Wall PA [address] [place] [phone] Physician Van Loader 06/20/22 documented as of this encounter
== END 2025-04-17 23:59 | disposition home or self-care (01) ==
LOC: LAB.DROPOF 04-18 12:34
PROVIDERS: Family Medicine; PCP Specialist; Visit Provider Specialist
DX: I12.9 Hypertensive chronic kidney disease with stage 1 through stage 4 chronic kidney disease, or unspecified chronic kidney disease (principal); N18.31 Chronic kidney disease, stage 3a; E78.2 Mixed hyperlipidemia; G43.909 Migraine, unspecified, not intractable, without status migrainosus; M17.11 Unilateral primary osteoarthritis, right knee
CPT/HCPCS: 80061; 82306; 82607; 84443; 85651; 86140

== ENCOUNTER 2025-07-27 09:27 | Outpatient (CLI) | payer MEDICAID, SELFPAY ==
[2025-07-27 15:56] LABS: Alanine Aminotransferase 26 U/L (12-78); Albumin Level 4.4 g/dl (3.5-5.0); Albumin/Globulin Ratio 1.9 (1.1-1.8); Alkaline Phosphatase 77 U/L (38-126); Anion Gap 9.5 mEq/L (5-15); Aspartate Amino Transferase 34 U/L (14-36); Bilirubin,Total 0.7 mg/dl (0.2-1.3); Blood Urea Nitrogen 15 mg/dl (7-17); Calcium 9.5 mg/dl (8.4-10.2); Carbon Dioxide 29 mmol/L (22.0-30.0); Chloride 103 mmol/L (98-107); Creatinine,Serum 1.40 mg/dl (0.52-1.04); Estimated Glomerular Filt Rate 38 ml/min (>60); GFR (African American) 46 ML/MIN (>60); Globulin 2.3 g/dL (1.3-3.2); Glucose 83 mg/dl (74-100); Potassium 5.5 mmoL/L (3.5-5.1); Sodium 136 mmol/L (136-145); Total Protein,Serum 6.7 g/dl (6.3-8.2)
== END 2025-07-27 23:59 ==
LOC: LAB.DROPOF 07-31 09:28
PROVIDERS: PCP Family Medicine; Visit Provider Family Medicine
DX: E87.6 Hypokalemia (principal); E78.2 Mixed hyperlipidemia; I10 Essential (primary) hypertension
CPT/HCPCS: 80053

== ENCOUNTER 2025-08-08 08:13 | Day surgery (SDC) | payer MEDICAID, SELFPAY ==
[2025-08-08 08:23] VITALS: BP 138/74; PULSE 57; RESP 16; O2SAT 96; BMI 33.3
[2025-08-08 08:58] VITALS: BP 136/73; PULSE 64; RESP 18; O2SAT 96
[2025-08-08] MEDS: BUPIVACAINE 0.25% 10ML INJ 25 MG IJ (09:01)
[2025-08-08] MEDS: LIDOCAINE 1% 5ML PF VIAL 5 ML (09:02)
[2025-08-08 09:04] VITALS: BP 136/73; PULSE 64; RESP 18; O2SAT 96
--- NOTE | 2025-08-08 09:05 | EXP.PAIN.PRO ---
Procedure Date: 08/08/25 Time: 09:00 Anesthesiologist:: Thomas Ellsworth CRNA Complications:: None Pre-procedure Diagnosis:: Right sacroiliitis Post-procedure Diagnosis:: Same Indications for Procedure:: Patient is a very pleasant 60-year-old female who comes to clinic today for a right diagnostic sacroiliac joint injection of local anesthetic. She reports low lumbar back pain off the midline to the right. Right posterior hip pain. Difficulty transitioning from sitting to standing due to the right posterior hip pain. Difficulty with ambulation. Difficulty turning over in bed at night due to the pain. Upon examination she has extreme point tenderness over the right sacroiliac joint. She rates her pain 7/10. Procedure Details:: Procedure: Right sacroliliac joint injection under fluoroscopy Informed consent was obtained and the risk and benefits of the procedure were explained to the patient.~ The patient was taken to the procedure room and noninvasive monitors were placed including noninvasive blood pressure cuff and pulse oximeter.~ The patient was placed prone on the procedure table.~ The~ right hip was cleansed using Betadine as a cleansing solution.~ C-arm fluorosocpy was used to view the right SI joint.~ The skin and subcutaneous tissues were anesthetized using Lidocaine 1.5% and a 25-gauge needle.~ After this, a 22-gauge spinal needle was inserted under fluoroscopic guidance into the inferior aspect of the right SI joint.~ Omnipaque dye was injected and a good spread was seen throughout the joint.~ After this, approximately 5 mL of bupivacaine 0.25% was incrementally injected into the sacroiliac joint.~ The patient tolerated the procedure well with no complications.~ The patient was observed in the Pain Clinic, then discharged home neurologically intact.~ Plan and Disposition:: Patient was discharged without incident.
[2025-08-08 09:07] VITALS: BP 141/82; PULSE 62; RESP 16; O2SAT 98
[2025-08-08 15:57] LABS: Alanine Aminotransferase 26 U/L (12-78); Albumin Level 4.4 g/dl (3.5-5.0); Albumin/Globulin Ratio 1.9 (1.1-1.8); Alkaline Phosphatase 81 U/L (38-126); Anion Gap 10.4 mEq/L (5-15); Aspartate Amino Transferase 36 U/L (14-36); Bilirubin,Total 0.6 mg/dl (0.2-1.3); Blood Urea Nitrogen 15 mg/dl (7-17); Calcium 9.7 mg/dl (8.4-10.2); Carbon Dioxide 26 mmol/L (22.0-30.0); Chloride 103 mmol/L (98-107); Creatinine Clearance Estimated 70 mL/min (50-200); Creatinine,Serum 1.30 mg/dl (0.52-1.04); Estimated Glomerular Filt Rate 42 ml/min (>60); GFR (African American) 51 ML/MIN (>60); Globulin 2.3 g/dL (1.3-3.2); Glucose 90 mg/dl (74-100); Potassium 4.4 mmoL/L (3.5-5.1); Sodium 135 mmol/L (136-145); Total Protein,Serum 6.7 g/dl (6.3-8.2)
== END 2025-08-08 09:07 | disposition home or self-care (01) ==
PROVIDERS: PCP Family Medicine; Visit Provider Nurse Anesthetist, Certified Registered
DX: M46.1 Sacroiliitis, not elsewhere classified (principal); F41.9 Anxiety disorder, unspecified; F32.A Depression, unspecified; G43.909 Migraine, unspecified, not intractable, without status migrainosus; M79.7 Fibromyalgia; K21.9 Gastro-esophageal reflux disease without esophagitis; Z56.0 Unemployment, unspecified
CPT/HCPCS: 80053; 82043; 82570; G0260; J0665; J2003

== ENCOUNTER 2025-08-29 10:40 | Outpatient (CLI) | payer MEDICAID, SELFPAY ==
--- OUTSIDE RECORDS SUMMARY | 2025-08-29 10:59 | XMS_ITS | Patient Health Record ---
Author Organization [facility] MD Address [address] [place] [address] Care Team Providers Care Clinical Research Coordinator Name Role Phone Rl Perry Unavailable [phone] Reason For Referral No Information Problems Problem Type SNOMED Code ICD Code Onset Dates Problem Status W/U Status Risk Notes Problem Obstructive sleep apnea (38124898) Obstructive sleep apnea (G47.33) Active confirmed Problem Macroglossia (33772382) Macroglossia (Q38.2) Active confirmed Problem Daytime sleep (489017135) Daytime hypersomnolence (G47.19) Active confirmed Plan Of Treatment No Information Insurance Providers Payer Name Payer Address Payer Phone Subscriber Number Group Number Insured Name Patient Relationship to Insured Coverage Start Date Coverage End Date [facility] [employer] [facility] [address] [address] [place] [address] [id number] Nargis Bishop Self - patient is the insured
--- OUTSIDE RECORDS SUMMARY | 2025-08-29 10:59 | XMS_ITS | Clinical Summary ---
Author Organization [facility] Address [address] [place] [address] [address] [place] [address] Phone Care Team Providers Care Supply Chain Logistics Manager Name Role Phone Ravin SILVA, Huy Merritt [...]
--- OUTSIDE RECORDS SUMMARY | 2025-08-29 10:59 | XMS_ITS | Clinical Summary ---
Author Organization [facility] Address [address] [place] [address] Care Team Providers Care Newspaper Press Operator Apprentice Name Role Phone [place], Shell Bhat PA Unavailable [phone] Brday Valentine DO Primary Care Provider [phone] Allergies Active Allergy Reactions Criticality Noted Date [...] 3 (three) times a day. 2 Active Vitamin D3 1.25 MG (47495 UT) capsule 3 Active rOPINIRole (Requip) 1 MG tablet 3 Active estradiol (Climara) 0.05 MG/24HR Place 1 patch on the skin 1 (one) time per week. 3 Active Auvelity 45-105 MG tablet controlled-rele ase 4 Active buPROPion SR (Wellbutrin SR) 150 MG 12 hr tablet Take 1 tablet (150 mg) by mouth 2 (two) times a day. 8 Active simvastatin (Zocor) 80 MG tablet Take 1 tablet (80 mg) by mouth every night. 4 Active Ajovy 225 MG/1.5ML solution auto-injector INJECT THE CONTENTS OF 1 PEN UNDER THE SKIN EVERY 30 DAYS 1.5 mL 5 Active Additional Information Patient not taking.Reported on 06/23/2025 Ajovy 225 MG/1.5ML solution auto-injector INJECT 1 PEN UNDER THE SKIN EVERY 30 (THIRTY) DAYS. 1.5 mL 5 Active topiramate (Topamax) 25 MG tabletIndicatio ns:Chronic migraine without aura, intractable, without status migrainosus Take 1 tablet by mouth 2 times a day. 60 tablet 5 Active predniSONE (Deltasone) 5 MG tabletIndicatio ns:Seronegative rheumatoid arthritis of multiple sites (CMS/HCC) 1-2 tablets daily as needed for flair up. Notify Rheumatology if you have to take for 5 consecutive days 30 tablet 5 Active Upadacitinib ER (Rinvoq) 15 MG tablet sustained-relea se 24 hourIndications :Seronegative rheumatoid arthritis of multiple sites (CMS/HCC) Take 1 tablet by mouth daily. 30 tablet 3 5 Active Active Problems Problem Noted Date Diagnosed Date Severe obesity (BMI 35.0-39.9) with comorbidity 10/30/2023 Resolved Problems Problem Noted Date Diagnosed Date Resolved Date Arthritis 06/23/2025 06/23/2025 Overview (06/23/2025): Has developed and worsened over years Daytime hypersomnolence 06/23/202506/14 Macroglossia 06/23/2025 06/23/2025 Degenerative joint disease of spine 06/23/2025 06/23/2025 Overview (06/23/2025): Diagnosed 2021, have had trigger point injections in cervical spine area, cortisone injections in lumbar spine, and medial branch ablation in lumbar spine Obstructive sleep apnea 06/23/202506/14 Unspecified urinary incontinence 03/14/2025 06/23/2025 Other forms of dyspnea 01/18/202506/23 Unilateral primary osteoarthritis, right knee 01/18/2006/23/2025 Pain in right knee 01/17/2025 Bradycardia, unspecified 01/07/202506/2025 Other chest pain 01/07/2025 06/23/2025 Nausea 01/07/2025 06/23/2025 Cervicalgia 11/29/2024 06/23/2025 Other specified abnormal imm unological findings in serum 11/29/2024 06/23/2025 Rheumatoid arthritis without rheumatoid factor, multiple sites 11/29/2024 06/23/2025 Raynaud's syndrome without gangrene 11/29/2024 06/23/2025 Hypokalemia 10/24/2024 06/23/2025 Unspecified acute lower respiratory infection 10/24/1906/23/2025 Acute laryngitis 10/22/2024 06/23/2025 Fever, unspecified 10/22/2024 Influenza due to other ident ified influenza virus with other respiratory manifestations 10/22/2024 06/23/2025 Pain in right hand 09/01/2024 Anesthesia of skin 07/25/2024 Dizziness and giddiness 07/25/202406/14 Carpal tunnel syndrome, left upper limb 06/21/2024 06/23/2025 Chronic migraine without aur a, intractable, without status migrainosus 06/03/2024 06/23/2025 Radiculopathy, lumbar region 06/03/2024 06/23/2025 Abnormal electrocardiogram (ECG) (EKG) 05/27/2024 06/23/2025 Cardiomegaly 05/27/2024 06/23/2025 Menopausal and female climacteric states 05/18/2024 06/23/2025 Chondromalacia patellae, right knee 05/12/2024 06/23/2025 Demyelinating disease 08/06/20202024 Chronic kidney disease (CKD) stage G3a/A1, moderately decreased glomerular filtration rate (GFR) between 45-59 mL/min/1.73 square meter and albuminuria creatinine ratio less than 30 mg/g 07/16/2018 06/23/2025 Overview (06/23/2025): Diagnosed in 2019, currently stable DDD (degenerative disc disease), cervical 09/22/2017 06/23/2025 Positive CINDI (antinuclear antibody) 07/09/2015 06/23/2025 Vitamin D deficiency 06/20/2015 025 Other overlap syndromes 01/21/201306/14 Gastro-esophageal reflux dis ease without esophagitis 01/06/2013 06/23/2025 Hyperlipidemia 01/06/2013 06/23/2025 Idiopathic aseptic necrosis of bone 01/06/2013 06/23/2025 Arthropathy 11/15/2012 06/23/2025 Chronic fatigue syndrome with fibromyalgia 11/15/2012 06/23/2025 Overview (06/23/2025): Diagnosed in 1994 Essential (primary) hypertension 11/15/2012 06/23/2025 Depression 11/15/2012 06/23/2025 Overview (06/23/2025): Diagnosed in 1995 Insomnia 11/15/2012 06/23/2025 Migraine without status migr ainosus, not intractable 11/15/2012 06/23/2025 Palpitations 11/15/2012 06/23/2025 Systemic lupus erythematosus with organ system involvement 11/15/2012 06/23/2025 Encounters Date Type Department Care Team Description 06/23/2025 11:53 AM EDT - 06/23/2025 11:59 PM EDT Hospital Encounter [facility] [address] [place] [address] Seronegative rheumatoid arthritis of multiple sites (CMS/HCC) Discharge Disposition: Home or Self Care 06/23/2025 10:30 AM EDT Office Visit [facility] [address] [place] [address] Thaddeus, September R, [employer]GETABLE THINNER Seronegative rheumatoid arthritis of multiple sites (CMS/HCC) (Primary Dx); High risk medication use; CINDI positive; Left wrist pain 06/23/2025 Telephone [facility] [address], [address] [place] [address] Lisa Stewart, PharmD Rinvoq New Start 06/23/2025 Travel from Last 3 Months Immunizations Immunization Administration Dates Next Due Influenza, seasonal, injectable 06/20/2021 Moderna COVID-19 Vaccine (Spray Booth Operator) 12+ years ,04/17/2021 Tdap 10/21/2012 Family History Medical History Relation Name Comments Cancer Brother 1 Carpenter Depression Brother 1 Carpenter Diabetes Brother 1 Carpenter Heart disease Brother 1 Carpenter Kidney disease Brother 1 Carpenter Obesity Brother 1 Carpenter Single kidney Brother 1 Carpenter Stroke Brother 1 Carpenter Vision loss Brother 1 Carpenter Depression Brother 2 Virg Heart disease Brother [...] Stroke Other 8 Heart disease Paternal Grandfather Victoria Heart disease Paternal Grandmother Vi Obesity Paternal [...] Librado Hepatitis, C Virus Son 2 Librado Autoimmune disease Son 3 Tom Relation Name Status Comments Brother 1 Carpenter Brother 2 Virg Brother 3 Brother 4 Brother 5 Brother 6 Brother 7 Daughter 1 Therese Daughter 2 [address] Daughter 3 Skylar Father Prashant Maternal Grandfather Marquis Maternal Grandmother Radha Mother Adelaide Mother's Sister Other 1 Other 2 Other 3 Other 4 Other 5 Other 6 Other 7 Other 8 Paternal Grandfather Victoria Paternal Grandmother Vi Sister 1 Kk Sister 2 Nereida Sister 3 Sister 4 Sister 5 Sister 6 Sister 7 Son 1 Ash Son 2 Librado Son 3 Tom Alive Social History Tobacco Use Types Packs/Day Years [...] Sign Reading Time Taken Comments Blood Pressure 119/75 06/23/2025 10:43 AM EDT Pulse 58 06/23/2025 10:43 AM EDT Temperature 36.6 C (97.8 F) 06/23/2025 10:43 AM EDT Respiratory Rate 16 11/29/2024 1:09 PM EDT Oxygen Saturation 97% 06/23/2025 10:43 AM EDT Inhaled Oxygen Concentration - - Weight 102 kg (225 lb 1.4 oz) 06/23/2025 10:43 A M EDT Height 170.2 cm (5' 7 ) 06/23/2025 10:43 AM EDT Body Mass Index 35.25 06/23/2025 10:43 AM EDT Plan of Treatment Upcoming Encounters Date Type Department Care Team (Late st Contact Info) Description 09/27/2025 2:50 PM EST Office Visit [facility] [address] [place] [address] Shell Wall, PA [address] [place] [address] 10/24/2025 2:30 PM EST Office Visit [facility] [address] [place] [address] Martha Travis APRN [address] [place] [address] 11/03/2025 10:00 AM EST Office Visit [facility] [address] [place] [address] [place] [address] Benjamin Phelps MD [address] [place] [address] Health Maintenance Due Date Last Done Comments [facility]-HIV Screening 1965 [facility]-/Child/Adol SDOH Screenings 1965 [facility]- SDOH Screenings 1983 [facility]-Adult SDOH Screenings 1983 [facility]-Zoster Vaccines (1 of 2) 01/25/1984 CT Colonography 2010 FIT-DNA 2010 FIT 2010 FOBT 2010 Sigmoidoscopy 2010 [facility]-Breast Cancer Screening 2015 [facility]-Pneumococcal Vaccine: 50+ Years (1 of 1 - PCV) 2015 [facility]-RSV Vaccine: 60+ Years or (1 - Risk 50-74 years 1-dose series) 2015 [id number]-10 Vaccine (3 - Moderna risk series) 06/26/2021 05/29/2021, 04/17/2021 Colonoscopy 09/16/2021 09/16/2011 [facility]-Colorectal Cancer Screening 09/16/2021 [facility]-DTaP,Tdap,and Td Vaccines (2 - Td or Tdap) 10/21/2022 10/21/2012 [facility]-Influenza Vaccine (#1) 2025 06/20/2021 [facility]-Depression Screening 11/29/2025 11/29/2024, 11/12 [facility]-Hepatitis C Screening Completed 2024, 01/01/2023, 12/03/2021, Additional history exists [facility]-Obesity Intervention Completed 025, 11/29/2024, 06/14/2024, Additional history exists HPV Vaccines (No Doses Required) Completed [facility]-HIB Vaccines Aged Out No longer e [...] Procedure Name Priority Date/Time Associated Diagnosis Comments XR HAND WRIST BILATERAL 2 VIEWS Routine 06/23/2025 12:02 PM EDT Seronegative rheumatoid arthritis of multiple sites (CMS/HCC) CBC WITH AUTO DIFFERENTIAL Routine 06/23/2025 11:50 AM EDT High risk medication use CREATININE, PLASMA Routine 06/23/2025 11 :50 AM EDT High risk medication use HEPATIC FUNCTION PANEL Routine 06/23/2025 11:50 AM EDT High risk medication use C-REACTIVE PROTEIN, PLASMA Routine 06/23/2025 11:50 AM EDT High risk medication use LIPID PROFILE, PLASMA Routine 06/23/2025 11:50 AM EDT High risk medication use HEPATITIS B CORE TOTAL AB (IGG AND IGM) Routine 06/23/2025 11:50 AM EDT High risk medication use HEPATITIS C ANTIBODY W/REFLEX TO HCV QUANT PCR Routine 06/23/2025 11:50 AM EDT High risk medication use QUANTIFERON TB GOLD PLUS Routine 06/23/2025 11:50 AM EDT High risk medication use COLONOSCOPY 09/16/2011 from Last 3 Months or Most Recently Relevant to Health Maintenance Results * XR Hand and Wrist Bilateral 2 Views (06/23/2025 12:02 PM EDT) Anatomical Region Laterality Modality Hand, Wrist Bilateral Digital Radiogra phy Impressions 06/23/2025 2:13 PM EDT No acute fracture or dislocation. Osseous structures in satisfactory. Degenerative changes as above. Mineralization along the radial margin of the proximal phalanx of the right thumb could represent sequela of prior injury. No evidence of erosive change.. CRITICAL RESULT: No. COMMUNICATION: Per this written report. Drafted by Wellington Pantoja on 06/23/2025 2:10 PM Final report signed by Wellington Pantoja on 06/23/2025 2:13 PM Narrative 06/23/2025 2:13 PM EDT CLINICAL INDICATION: evaluation for inflammatory changes. TECHNIQUE: XR HAND WRIST BILATERAL 2 VIEWS COMPARISON: None. FINDINGS: Left hand and wrist: Narrowing and osteophytosis along the interphalangeal joints similar to prior. Mild degenerative change of the first carpocarpal joint. No significant soft tissue swelling. No evidence of erosive change. No acute fracture or dislocation. Osseous structures in satisfactory alignment. Right hand and wrist: No acute fracture or dislocation. Osseous structures in satisfactory alignment. Mineralization along the radial margin of the proximal phalanx of the thumb could represent sequela of prior injury. Mild narrowing and osteophytosis of the interphalangeal joints. No evidence of erosive change. No significant soft tissue swelling. Procedure Note Wellington Pantoja MD - 06/23/2025 CLINICAL INDICATION: evaluation for inflammatory changes. TECHNIQUE: XR HAND WRIST BILATERAL 2 VIEWS COMPARISON: None. FINDINGS: Left hand and wrist: Narrowing and osteophytosis along the interphalangealjoints similar to prior. Mild degenerative change of the first carpocarpaljoint. No significant soft tissue swelling. No evidence of erosive change.No acute fracture or dislocation. Osseous structures in satisfactoryalignment. Right hand and wrist: No acute fracture or dislocation. Osseous structuresin satisfactory alignment. Mineralization along the radial margin of theproximal phalanx of the thumb could represent sequela of prior injury.Mild narrowing and osteophytosis of the interphalangeal joints. Noevidence of erosive change. No significant soft tissue swelling. IMPRESSION: No acute fracture or dislocation. Osseous structures in satisfactory.Degenerative changes as above. Mineralization along the radial margin ofthe proximal phalanx of the right thumb could represent sequela of priorinjury. No evidence of erosive change.. CRITICAL RESULT: No. COMMUNICATION: Per this written report. Drafted by Wellington Pantoja on 06/23/2025 2:10 PM Final report signed by Wellington Pantoja on 06/23/2025 2:13 PM september R Thaddeus VEGETABLE THINNER IMG XR PROCEDURES Final Res ult * Hepatitis C Antibody (06/23/2025 11:50 AM EDT) Hepatitis C Antibody Negative Negative 06/23/2025 1:50 PM EDT [facility] Blood Venous blood specimen / Unknown Venipuncture / Unknown 06/23/2025 11:50 AM EDT 06/23/2025 11:50 AM EDT us September R Thaddeus [employer] LAB BLOOD ORDERABLES Final Result Performing Organization Address City/[facility]/ZIP Co de Phone Number [facility] [address] [place] [address] * Hepatitis B Core Total Antibody IgG,IgM (06/23/2025 11:50 AM EDT) Hepatitis B Core Total Antibody IgG,IgM Negative Negative 06/23/2025 3:09 PM EDT [facility] Blood Venous blood specimen / Unknown Venipuncture / Unknown 06/23/2025 11:50 AM EDT 06/23/2025 11:50 AM EDT us September R Thaddeus MATSON LAB BLOOD ORDERABLES Final Result Performing Organization Address [facility] Co de Phone Number [facility] [address] [place] [address] * Quantiferon TB Gold Plus (06/23/2025 11:50 AM EDT) Quantiferon TB Gold Plus Result Negative Negative 06/24/2025 5:41 PM EDT [facility] TB Nill Value 0.0351 IU/mL 06/24/2025 5:41 PM EDT [facility] TB Antigen 1 0.0171 IU/mL 06/24/2025 5:41 PM EDT [facility] TB Antigen 2 0.0368 IU/mL 06/24/2025 5:41 PM EDT [facility] TB Mitogen 9.9649 IU/mL 06/24/2025 5:41 PM EDT [facility] Blood Venous blood specimen / Unknown Venipuncture / Unknown 06/23/2025 11:50 AM EDT 06/23/2025 11:50 AM EDT Narrative [facility] - 06/24/2025 5:41 PM EDT Responses to the Mitogen positive control and occasionally to TB antigen can be above the assay range. For calculation purposes: IFN-gamma values > 10 IU/mL are handled as 10 IU/mL. September R Thdadeus [employer] LAB BLOOD ORDERABLES Final Result Performing Organization Address City/[facility]/ZIP Co de Phone Number [facility] [address] [place] [address] * (ABNORMAL) Creatinine, Plasma (06/23/2025 11:50 AM EDT) Creatinine, Plasma 1.30(H) 0.60 - 1.10 mg/dL 06/23/2025 1:36 PM EDT [facility] eGFRcr 47.2 mL/min/1.7 3m*2 06/23/2025 1:36 PM EDT [facility] Comment:Reported eGFRcr in m L/min/1.73m2 is based the CKD-EPI 2020 equation that does not use a race coefficient. Blood Venous blood specimen / Unknown Venipuncture / Unknown 06/23/2025 11:50 AM EDT 06/23/2025 11:50 AM EDT September [facility] LAB BLOOD ORDERABLES Final Result Performing Organization Address [facility] Co de Phone Number [facility] [address] [place] [address] * (ABNORMAL) CBC and Differential (06/23/2025 11:50 AM EDT) WBC Count 8.03 3.70 - 10.30 10*3/uL LAB HEMATOLOGY METHOD 06/23/2025 1:14 PM EDT [facility] RBC Count 4.17 3.90 - 5.20 10*6/uL LAB HEMATOLOGY METHOD 06/23/2025 1:14 PM EDT [facility] HGB 12.9 11.2 - 15.7 g/dL LAB HEMATOLOGY METHOD 06/23/2025 1:14 PM EDT [facility] HCT 40.4 34.0 - 45.0 % LAB HEMATOLOGY METHOD 06/23/2025 1:14 PM EDT [facility] Platelet Count 330 155 - 369 10*3/uL LAB HEMATOLOGY METHOD 06/23/2025 1:14 PM EDT [facility] MCV 97 79 - 98 fL LAB HEMATOLOGY METHOD 06/23/2025 1:14 PM EDT [facility] MCH 30.9 26.0 - 32.0 pg LAB HEMATOLOGY METHOD 06/23/2025 1:14 PM EDT [facility] MCHC 31.9 30.7 - 35.5 g/dL LAB HEMATOLOGY METHOD 06/23/2025 1:14 PM EDT [facility] RDW 13.4 11.5 - 14.5 % LAB HEMATOLOGY METHOD 06/23/2025 1:14 PM EDT [facility] MPV 12.4 8.8 - 12.5 fL LAB HEMATOLOGY METHOD 06/23/2025 1:14 PM EDT [facility] nRBC 0.0 <=0.0 per 100 WBCs LAB HEMATOLOGY METHOD 06/23/2025 1:14 PM EDT [facility] Differential Type Automated LAB HEMATOLOGY METHOD 06/23/2025 1:14 PM EDT [facility] Neutrophils % 75 % LAB HEMATOLOGY METHOD 06/23/2025 1:14 PM EDT [facility] Lymphocytes % 14 % LAB HEMATOLOGY METHOD 06/23/2025 1:14 PM EDT [facility] Monocytes % 8 % LAB HEMATOLOGY METHOD 06/23/2025 1:14 PM EDT [facility] Eosinophils % 2 % LAB HEMATOLOGY METHOD 06/23/2025 1:14 PM EDT [facility] Basophils % 1 % LAB HEMATOLOGY METHOD 06/23/2025 1:14 PM EDT [facility] Immature Granulocytes % 0 % LAB HEMATOLOGY METHOD 06/23/2025 1:14 PM EDT [facility] Neutrophils Absolute 6.04 1.60 - 6.10 10*3/uL LAB HEMATOLOGY METHOD 06/23/2025 1:14 PM EDT [facility] Lymphocytes Absolute 1.10(L) 1.20 - 3.90 10*3/uL LAB HEMATOLOGY METHOD 06/23/2025 1:14 PM EDT [facility] Monocytes Absolute 0.60 0.30 - 0.90 10*3/uL LAB HEMATOLOGY METHOD 06/23/2025 1:14 PM EDT [facility] Eosinophils Absolute 0.19 0.00 - 0.50 10*3/uL LAB HEMATOLOGY METHOD 06/23/2025 1:14 PM EDT [facility] Basophils Absolute 0.07 0.00 - 0.10 10*3/uL LAB HEMATOLOGY METHOD 06/23/2025 1:14 PM EDT [facility] Immature Granulocytes Absolute 0.03 0.00 - 0.06 10*3/uL LAB HEMATOLOGY METHOD 06/23/2025 1:14 PM EDT [facility] Blood Venous blood specimen / Unknown Venipuncture / Unknown 06/23/2025 11:50 AM EDT 06/23/2025 11:50 AM EDT Narrative [facility] - 06/23/2025 1:14 PM EDT Therapeutic decision making should be based on absolute values, rather than percentages. [facility] BLOOD ORDERABLES Final Result Performing Organization Address [facility] Co de Phone Number [facility] [address] [place] [address] * C-Reactive Protein, Plasma (06/23/2025 11:50 AM EDT) CRP, Plasma <3.0 <=8.0 mg/L 06/23/2025 1:36 PM EDT [facility] Blood Venous blood specimen / Unknown Venipuncture / Unknown 06/23/2025 11:50 AM EDT 06/23/2025 11:50 AM EDT Narrative [facility] - 06/23/2025 1:36 PM EDT This CRP test is appropriate for assessment of infection, systemic inflammation and/or tissue injury. To assess cardiovascular disease risk order high sensitivity CRP (CRPH). September Thaddeus [employer] LAB BLOOD ORDERABLES Final Result [facility] [address] [place] [address] * Hepatic Function Panel (06/23/2025 11:50 AM EDT) Direct Bilirubin, Plasma <0.2 <=0.3 mg/dL 06/23/2025 1:36 PM EDT [facility] Alkaline Phosphatase, Plasma 86 46 - 142 U/L 06/23/2025 1:36 PM EDT [facility] Total Bilirubin, Plasma 0.4 0.2 - 1.1 mg/dL 06/23/2025 1:36 PM EDT [facility] Albumin, Plasma 4.2 3.5 - 5.2 g/dL 06/23/2025 1:36 PM EDT [facility] Total Protein 7.0 6.3 - 7.9 g/dL 06/23/2025 1:36 PM EDT [facility] ALT, Plasma 19 10 - 35 U/L 06/23/2025 1:36 PM EDT [facility] AST, Plasma 27 10 - 35 U/L 06/23/2025 1:36 PM EDT [facility] Blood Venous blood specimen / Unknown Venipuncture / Unknown 06/23/2025 11:50 AM EDT 06/23/2025 11:50 AM EDT september Thaddeus [employer] LAB BLOOD ORDERABLES Final Result [facility] [address] [place] [address] * Lipid panel (06/23/2025 11:50 AM EDT) Cholesterol, Plasma 163 <200 mg/dL 06/23/2025 1:36 PM EDT [facility] Comment: Cholesterol Reference Range (age >17 years): Desirable <200 mg/dL Borderline 200 to 239 mg/dL Undesirable >239 mg/dL HDL 55 >=50 mg/dL 06/23/2025 1:36 PM EDT [facility] Comment: HDL Cholesterol Reference Ranges (age >17 years): Female, acceptable > or = 50 mg/dL Male, acceptable > or = 40 mg/dL Triglycerides, Plasma 133 <150 mg/dL 06/23/2025 1:36 PM EDT [facility] Comment: Triglyceride Reference Range (age >17 years): Desirable: <150 mg/dL Borderline high: 150 to 199 mg/dL High: 200 to 499 mg/dL Very high: >499 mg/dL Increased risk of pancreatitis: >1000 mg/dL Cholesterol/HDL Ratio 3 06/23/2025 1:36 PM EDT [facility] LDL, Calculated 85 <100 mg/dL 1:36 PM EDT [facility] Comment: LDL Cholesterol Reference Range (age >17 years): Optimal: <100 mg/dL Near or above optimal: 100 - 129 mg/dL Borderline high: 130 - 159 mg/dL High: 160 - 189 mg/dL Very high: >189 mg/dL LDL Cholesterol Reference Range (age <18 years): Desirable: <110 mg/dL Borderline: 110 - 129 mg/dL Undesirable: >130 mg/dL LDL Cholesterol is calculated using the Genao/NIH equation. Fasting greater than or equal to 12 hours? Yes 06/23/2025 1:36 PM EDT [facility] Blood Venous blood specimen / Unknown Venipuncture / Unknown 06/23/2025 11:50 AM EDT 06/23/2025 11:50 AM EDT September Thaddeus [employer] LAB BLOOD ORDERABLES Final Result [facility] [address] [place] [address] * COLONOSCOPY (09/16/2011) Anatomical Region Laterality Modality Endoscopy Narrative 09/16/2011 Ordered by an unspecified provider. Historical Provider GI PROCEDURE ORDERABLES Marie l Result from Last 3 Months or Most Recently Relevant to Health Maintenance Insurance [facility] [employer] MEDICA[place] Care Teams Newspaper Press Operator Apprentice Relationship Specialty Start Date End Date Brady Valentine DO [address] [place] [address] PCP - General 10/30/23 Shell Wall PA [address] [place] [address] Physician Business Analyst [employer] 06/20/22
--- OUTSIDE RECORDS SUMMARY | 2025-08-29 10:59 | XMS_ITS | Encounter Summary ---
Author Organization Healthcare Address [address] [place] [address] Care Team Providers Care Meat Counter Worker Name Role Phone Davon Villar MD Primary Care Provider + [phone] Shell Wall Unavailable [phone] Brady Valentine DO Primary Care Provider [phone] Reason for Visit * Reason Comments Med Refill Encounter Details Date Type Department Care Team (Late st Contact Info) Description 01/30/2022 Refill [facility] [address] [place] [address] Patricia Chong PA [address] [place] [address] Polyarthralgia Social History Tobacco Use [...] at appointment. * Telephone Encounter - Georgina Mathias, PharmD - 01/30/2022 10:15 AM EDT An [...] Description 09/27/2025 2:50 PM EST Office Visit [facility] [address] [place] [address] Shell Wall, PA [address] [place] [address] 10/24/2025 2:30 PM EST Office Visit [facility] [address] [place] [address] Martha Travis APRN [address] [place] [address] 11/03/2025 10:00 AM EST Office Visit [facility] [address] [place] [address] Benjamin Phelps MD [address] [place] [phone] documented as of this encounter Visit Diagnoses Diagnosis Polyarthralgia Pain in joint, multiple sites documented in this encounter Additional Health Concerns Assessment Noted Time PHQ-9 Depression Total Score: 24 022 9:15 AM EDT A fall risk assessment has been complete d for the patient 12/03/2021 9:16 AM EDT documented as of this encounter Care Teams Meat Counter Worker Relationship Specialty Start Date End Date Davon Villar MD [address] [place] [address] PCP - General 12/03/21 10/29/23 Brady Valentine DO [address], [place] [id number] PCP - General 10/30/23 Shell Wall PA [address] [facility] [address] [place] [address] Physician Truck Supervisor 06/20/22 documented as of this encounter
--- NOTE | 2025-08-29 11:00 | MM_ITS ---
PROCEDURE INFORMATION: Exam: MG Bilateral Screening 3D Mammography Exam date and time: 08/29/2025 10:47 AM Age: 60 years old Clinical indication: Screening examination TECHNIQUE: Imaging protocol: Bilateral Screening tomosynthesis and 2D mammography including computer-aided detection (CAD) when performed. COMPARISON: 1. MG MM DIG SCREENING MAMM BI W/CAD 06/14/2024 4:33 PM 2. MG MM DIG SCREENING MAMM BI W/CAD 06/04/2023 10:54 AM FINDINGS: MAMMOGRAPHY: Breast composition: There are scattered areas of fibroglandular density. Mass: None. Architectural distortion: None. Calcifications: No suspicious calcifications. Asymmetric density: None. Skin thickening: None. Axillary adenopathy: None. IMPRESSION: No mammographic evidence of malignancy. Annual screening is recommended unless otherwise clinically indicated. ASSESSMENT: BI-RADS Category 1: Negative.
== END 2025-08-29 23:59 | disposition home or self-care (01) ==
LOC: RAD 10:40
PROVIDERS: PCP Family Medicine; Visit Provider Obstetrics & Gynecology
DX: Z12.31 Encounter for screening mammogram for malignant neoplasm of breast (principal); R92.323 Mammographic fibroglandular density, bilateral breasts
CPT/HCPCS: 77063; 77067